=== PATIENT | male | born 1940 | race Caucasian/White ===

== ENCOUNTER → 2019-06-08 | Outpatient (CLI) | payer MEDICARE, OTHER | LOC: CARD 08:22 | PROVIDERS: ATTEND Internal Medicine Interventional Cardiology | DX: I25.10 Atherosclerotic heart disease of native coronary artery without angina pectoris (principal); E78.01 Familial hypercholesterolemia; I11.0 Hypertensive heart disease with heart failure | CPT/HCPCS: 93306 ==

== ENCOUNTER → 2019-06-15 | Outpatient (CLI) | payer MEDICARE, OTHER ==
[~2019-06-15] VITALS: Ht 178 cm; Wt 115.0 kg
[~2019-06-15] MED LIST: CATHETER FLUSH 10 ML SYR IV PRN; REGADENOSON 0.4 MG/5 ML SYR (LEXISCAN) IV ONE
[2019-06-15 08:52] VITALS: BP 128/66
--- NOTE | 2019-06-16 12:09 | Cardiology Stress Test Report ---
Stress Test Report Type of NM Stress Test: Test Type: LEXISCAN 0.4MG/5ML Date of Procedure/Referring: Date of Procedure: Jun 15, 2019 PCP Mariam Orr MD Admitting Physician Arsenio Sandoval MD Indications: Shortness of breath, CAD Baseline Heart Rate: 48 Baseline Blood Pressure: Blood Pressure Systolic: 128 Blood Pressure Diastolic: 66 Baseline EKG: Baseline EKG: sinus rhythm Summary & Conclusion: Summary: The patient was brought to the stress lab after informed consent was taken. Stress test was performed according to the Lexiscan protocol. 0.4 mg of IV Lexiscan was given. Low-grade exercise was performed. Baseline EKG showed sinus rhythm at 48 BPM. Blood pressure 153/77 mmHg. Maximum heart rate 71 BPM and blood pressure 139/66 mmHg. Patient did not have any chest pain, arrhythmias or ST segment changes during the stress test. 10.27 mCi of Myoview were given for rest imaging and 29 mCi of Myoview given for stress imaging. Transient ischemic dilatation score 0.99, EF 48 percent. Normal wall motion. Fixed apical defect. Small sized moderate apical reversible defect. SSS 5, SRS 2, SDS 3. Conclusion: Pharmacological stress test was negative for ischemia. Normal LV function with no wall motion abnormalities. Possible old apical infarct. [place]-infarct ischemia. Coronary angiography is recommended. Mariam ORR MD Jun 16, 2019 12:09
== END ==
LOC: CARD 07:47 → EDUNIT# 08:30
PROVIDERS: ATTEND Internal Medicine Interventional Cardiology
DX: I25.10 Atherosclerotic heart disease of native coronary artery without angina pectoris (principal); E78.01 Familial hypercholesterolemia; I10 Essential (primary) hypertension
CPT/HCPCS: 78452; 93017

== ENCOUNTER 2019-06-22 10:48 | Day surgery (SDC) | payer MEDICARE, OTHER ==
[~2019-06-22] VITALS: Ht 178 cm; Wt 113.0 kg
[~2019-06-22 10:48] MED LIST changes: -CATHETER FLUSH 10 ML SYR IV PRN; +HEParin (CATH LAB) 2,000 ML IV ONE; +LIDOCAINE 1% INJ 20 ML 20 ML VIAL ONE; +NS IV 1000 ML 1,000 ML ONE; -REGADENOSON 0.4 MG/5 ML SYR (LEXISCAN) IV ONE
[2019-06-22] MEDS: NS IV 1000 ML 1,000 ML IV SCH ×2 (10:57→14:41)
[2019-06-22 11:03] VITALS: BP 153/70
[2019-06-22 11:11] LABS: HEMOGLOBIN 14.6 G/DL (13.3-17.7); MEAN PLATELET VOLUME 10.4 FL (7.4-10.4); RED CELL DISTRIBUTION WIDTH 13.8 % (10.0-14.5); WHITE BLOOD COUNT 7.4 10^3/uL (4.3-11.0)
[2019-06-22 11:22] LABS: PROTHROMBIN TIME PATIENT 13.8 SEC (12.2-14.7)
[2019-06-22] MEDS ORDERED: ATEN25TA PO (11:24)
[2019-06-22] MEDS ORDERED: LEVO175T5 PO (11:24)
[2019-06-22] MEDS ORDERED: OXYB5TAB13 PO (11:24)
[2019-06-22] MEDS ORDERED: CYAN50008 PO (11:24)
[2019-06-22] MEDS ORDERED: ASCO-262 PO (11:24)
[2019-06-22] MEDS ORDERED: ATOR20TA49 PO (11:24)
[2019-06-22] MEDS ORDERED: DOCU-143 PO (11:24)
[2019-06-22] MEDS ORDERED: MULT-642 PO (11:24)
[2019-06-22] MEDS ORDERED: LISI10TA2 PO (11:24)
[2019-06-22] MEDS ORDERED: ASPI-999 PO (11:24)
[2019-06-22 11:28] LABS: ALBUMIN 4.3 GM/DL (3.2-4.5); BILIRUBIN,TOTAL 0.7 MG/DL (0.1-1.0); CALCIUM 9.6 MG/DL (8.5-10.1); CREATININE SERUM 1.18 MG/DL (0.60-1.30); POTASSIUM 4.3 MMOL/L (3.6-5.0); TOTAL PROTEIN 7.8 GM/DL (6.4-8.2)
[2019-06-22] MEDS ORDERED: fentaNYL INJECTION 100 MCG/2 ML AMP ONE (14:01)
[2019-06-22] MEDS ORDERED: HEParin 1000 UNIT/ML (10ML VIAL) FOR BOLUS ONE (14:01)
[2019-06-22] MEDS ORDERED: NITRO DRIP 25000 MCG/D5W 250 ML IV ONE (14:01)
[2019-06-22] MEDS ORDERED: MIDAZOLAM 5 MG/5 ML (VERSED) VIAL ONE (14:01)
[2019-06-22] MEDS ORDERED: VERAPAMIL 5 MG/2 ML (CALAN) VIAL IV ONE (14:01)
--- NOTE | 2019-06-22 14:19 | Cardiac Procedure Note-CS/ASA ---
Pre-Procedure Note Pre-Op Procedure Note H&P Reviewed The H&P was reviewed, patient examined and no changes noted. Date H&P Reviewed: Jun 22, 2019 Time H&P Reviewed: 12:00 Conscious Sedation Pre-Proced Time 12:00 ASA Score 3 For ASA 3 and 4: Consider anesthesia and medical clearance. Also, for patients with a history of failed moderate sedation consider anesthesia. Airway Lungs Heart ASA score ASA 1: a normal healthy patient ASA 2: a patient with a mild systemic disease (mid diabetes, controlled hypertension, obesity ASA 3: a patient with a severe systemic disease that limits activity (angina, COPD, prior Myocardial infarction) ASA 4: a patient with an incapacitating disease that is a constant threat to life (CHF, renal failure) ASA 5: a moribund patient not expected to survive 24 hrs. (ruptured aneurysm) ASA 6: a declared brain- patient whose organs are being harvested. For emergent operations, add the letter E after the classification Mallampati Classification Grade 1 Sedation Plan Analgesia, Amnesia, Plan communicated to team members, Discussed options with patient/fam, Discussed risks with patient/fam The patient is an appropriate candidate to undergo the planned procedure, sedation, and anesthesia. The patient immediately re-assessed prior to indication. Mariam ORR MD Jun 22, 2019 14:19
[2019-06-22] MEDS ORDERED: NS IV 1000 ML 1,000 ML ONE (14:34)
[2019-06-22] MEDS ORDERED: ADENOSINE 3 MG/1 ML (ADENOSCAN) 30ML VIAL IV ONE ×2 (14:43→14:59)
[2019-06-22] MEDS ORDERED: TICAGRELOR 90 MG TABLET (BRILINTA) PO ONE (15:16)
[2019-06-22] MEDS ORDERED: NS IV 1000 ML 1,000 ML IV SCH (15:48)
--- NOTE | 2019-06-22 15:48 | Coronary Angiography & PCI ---
Coronary Angiography & PCI DATE OF PROCEDURE: 06/22/19 INDICATION: Shortness of breath, abnormal nuclear stress test, previous history of CAD/PCI. PREOPERATIVE DIAGNOSIS: Shortness of breath, abnormal nuclear stress test, previous history of CAD/PCI. POSTOPERATIVE DIAGNOSIS: Moderate to severe CAD. HISTORY: This is a 79-year-old gentleman with previous history of CAD/PCI. He presented with shortness of breath. Nuclear stress test showed possible old apical infarct with kwesi-infarct ischemia. Therefore, the patient was scheduled for coronary angiography. PROCEDURES PERFORMED: 1.Coronary angiography. 2.Left heart catheterization. 3.attempted PCI to the first diagonal artery. 4. FFR to first OM artery. 5. FFR to proximal LAD. COMPLICATIONS: None. SPECIMENS: None. ESTIMATED BLOOD LOSS: 10 mL ANESTHESIA: Conscious sedation ANTICOAGULATION: IV heparin CONTRAST: 180 mL. FLUOROSCOPY: 20.5 minutes. FLOUROSCOPY DOSE: 1939 MGY. PROCEDURE DETAILS: The patient is a 79 male and was brought to the labor relations analyst after informed consent was taken. All the risks and complications were explained in detail; this included the risk of bleeding, vascular damage, stroke, [place] and even . The patient was draped and prepped in the usual sterile fashion. Access was gained in the right radial artery with a 6 Kinyarwanda sheath. Coronary angiography and left heart catheterization was performed with the [place] catheter. FINDINGS: 1.Left main: Patent. 2.LAD: Moderate proximal disease. Moderate bridging noted in the mid LAD. First diagonal artery is tortuous and has a mid severe stenosis. Stenosis severity 80 percent. 3.Left circumflex artery: Patent left circumflex artery. Moderate in-stent restenosis of a stent in OM 1. 4.RCA: Aneurysmal RCA with no focal stenosis. Dominant vessel. 5.Left heart catheterization: LV pressure 82/2 mmHg. LVEDP 9 mmHg. Aortic pressure 73/46 mmHg. Normal LV function with no wall motion abnormalities. No gradient across the aortic valve. RECOMMENDATIONS: 1. FFR to the in-stent restenosis of OM1. 2. FFR to the proximal LAD. 3. PCI to the first diagonal artery is recommended. INTERVENTION DETAILS: JL 4.0 guide catheter, FFR guidewire, IV heparin for anticoagulation. ACT was over 200 seconds. The lesion in the OM 1 was crossed with a FFR wire. The tip was placed in the distal vessel. Adenosine was started at 140 g per KG per minute for 2 minutes. Lowest FFR was 0.90 which is acceptable therefore PCI was deferred. The wire was taken out and post-angiogram did not show any vascular complication. The wire was then placed in the mid LAD. The lesion in the proximal LAD was crossed. The tip of the wire was placed just before the bridging segment in the mid/distal LAD. Adenosine was started at 140 g per KG per minute. Lowest FFR was 0.87 which was acceptable therefore PCI was deferred. We therefore decided to proceed with PCI to the diagonal artery. There was significant tortuosity before the lesion. We were unable to cross with the FFR wire. Therefore we switched to a whisper extra-support guidewire and we were able to cross the lesion. We then took a 2.25 x 15 drug-eluting st ent but were not able to cross into the diagonal artery. We had the FFR wire as a gonsalo wire but were still not able to cross the lesion. The stent was taken out and then we took an emerge 2.5 x 12 mm balloon and were still unable to cross the lesion. We then took the balloon out and went in with an emerge 1.5 x 12 mm balloon, we were still not able to get to the lesion due to significant tortuosity in the proximal LAD and proximal part of the diagonal artery. At this point in time we had already used 20 minutes of fluoroscopy time. We decided to stop. The wires were taken out. Post-angiogram did not show any vascular complication and EDWARD-3 flow. The right radial artery was closed with a vascular band. Patient was given Brilinta 180 mg by mouth before the attempted PCI. CONCLUSIONS: 1. Moderate in-stent restenosis of a first OM stent. Negative FFR. 2. Moderate proximal LAD stenosis, negative FFR. 3. Severe proximal/mid first diagonal artery stenosis. Attempted PCI, however we were not able to cross with stent and balloon. Procedure was stopped. 4. Continue aggressive secondary prevention measures. Jeffry Bowie MD, FACP, FACC, [facility] Interventional Cardiology Mariam BOWIE MD Jun 22, 2019 15:48
--- NOTE | 2019-06-22 15:51 | Discharge Inst-Post CATH ---
Discharge Inst-CATH/EP Problems Reviewed?: Yes Final Diagnosis Moderate to severe CAD Post Cardiac Cath/EP D/C Inst Follow Up/Plan Dr. Bowie in 4-6 weeks. <b>CARDIAC CATH/EP PROCEDURE DISCHARGE INSTRUCTIONS</b> ACTIVITY * Go Home directly and rest. * Limit activity of the leg (or wrist if it was used) for 7 days including aerobics, swimming, jogging, bicycling, etc. * Restrict stair-climbing for 7 days if possible, if not, climb up with your non-cath leg, then bring together on the same step. * Avoid lifting, pushing, pulling or excessive movement of the affected extremity for 7 days. * Customary sexual activity may be resumed after 2 days-use caution not to use a position that strains or causes pain to the affected extremity. * No driving for 24 hours. * NO SMOKING. * Avoid straining for bowel movements for 7 days. * Gentle walking on level ground is allowed. * Returning to work will depend on the type of procedure and the results. Your doctor will discuss this with you. CALL YOUR DOCTOR FOR ANY OF THE FOLLOWING: *If bleeding from the puncture site occurs- Apply gentle pressure to site with clean cloth and call your doctor or EMS. * If a knot or lump forms under the skin, increases in size, or causes pain. * If bruising appears to be worsening or moving further down your leg instead of disappearing. * Temperature above 101 F. CARE OF YOUR GROIN INCISION; * Bruising or purple discoloration of the skin near the puncture site is common. * You may shower only, no bathtub bathing for 5 days. Be careful to avoid slipping as your leg may feel stiff. * If a closure device was used on your femoral artery, please see the attached guide regarding care of the device and your leg. * Leave dressing on FOR 24 hours. CARE OF YOUR WRIST INCISION; * Bruising or purple discoloration of the skin near the puncture site is common. * You may shower. * DO NOT submerge wrist. * Leave dressing on FOR 24 hours. Mariam BOWIE MD Jun 22, 2019 15:51
[2019-06-22] MEDS ORDERED: PATIENT MAY USE OWN MEDS, ALL PO SCH (16:00)
[2019-06-22 16:10] VITALS: BP 152/84
--- NOTE | 2019-06-22 16:19 | Cardiology Discharge Summary ---
Diagnosis/Chief Complaint Date of Admission 06/22/2019 Date of Discharge 06/22/2019 Admission Diagnosis Shortness of breath, history of CAD/PCI, abnormal nuclear stress test. Final/Discharge Diagnosis Moderate to severe one-vessel CAD. Chief Complaint/HPI Chief Complaint/HPI This is a 79-year-old gentleman with shortness of breath. Previous history of CAD and PCI to the OM1 with a drug-eluting stent. He presented to the office with complains of shortness of breath. Nuclear stress test showed apical infar ct with possible kwesi-infarct ischemia. Coronary angiography was recommended. Discharge Summary Procedures Coronary angiography showed moderate in-stent restenosis of the stent in OM 1 with negative FFR. Moderate proximal LAD stenosis with negative FFR. Therefore PCI was deferred. The first diagonal artery had a proximal/mid severe stenosis. Significant tortuosity in the proximal segment of the first diagonal artery. We were able to cross with the whisper wire however we were not able to cross with either a drug-eluting stent or a 2.5 or 1.5 balloon. Therefore the procedure was stopped since we had already used 20 minutes of fluoroscopy time. The wires were taken out and post-angiogram did not reveal any vascular com plication and EDWARD-3 flow. Discharge Physical Examination Unremarkable. Hospital Course Was the Problem List Reviewed?: Yes Unremarkable. Pending Labs Laboratory Tests 06/22/19 11:00: White Blood Count 7.4, Red Blood Count 4.40, Hemoglobin 14.6, Hematocrit 44, Mean Corpuscular Volume 100, Mean Corpuscular Hemoglobin 33, Mean Corpuscular Hemoglobin Concent 33, Red Cell Distribution Width 13.8, Platelet Count 166, Mean Platelet Volume 10.4, Prothrombin Time 13.8, INR Comment 1.0, Activated Partial Thromboplast Time 30, Sodium Level 139, Potassium Level 4.3, Chloride Level 102, Carbon Dioxide Level 30, Anion Gap 7, Blood Urea Nitrogen 25, Creatinine 1.18, Estimat Glomerular Filtration Rate 60, BUN/Creatinine Ratio 21, Glucose Level 102, Calcium Level 9.6, Corrected Calcium 9.4, Total Bilirubin 0.7, Aspartate Amino Transf (AST/SGOT) 20, Alanine Aminotransferase (ALT/SGPT) 20, Alkaline Phosphatase 67, Total Protein 7.8, Albumin 4.3 Discussion & Recommendations Discussion Discussed with the patient and family. Patient will continue outpatient medical therapy. Follow-up in 4-6 weeks. Follow up appt.: 4-6 weeks. Dicharge Diet: Cardiac Diet Activity as Tolerated: Yes Home Medications Reviewed patient Home Medication Reconciliation performed by pharmacy medication reconciliations collection technician and/or nursing. Patients Allergies have been reviewed. Discharge Home Medications: Reviewed and agree with Discharge Medication list on patient's Discharge Instruction sheet Condition at discharge Stable. Instructions to patient/family Dr. Bowie in 4-6 weeks. Mariam BOWIE MD Jun 22, 2019 16:19
[2019-06-22 16:25] VITALS: BP 139/86
[2019-06-22 16:40] VITALS: BP 139/68
[2019-06-22 16:55] VITALS: BP 153/75
[2019-06-22 18:30] VITALS: BP 148/72
--- NOTE | 2019-06-22 18:30 | NUR ---
PT DISCHARGED HOME WITH SPOUSE VIA PRIVATE CAR. FOLLOW UP FAX SENT TO DR ORR OFFICE FOR FOLLOW UP APPT. PT INSTRUCTED TO CALL OFFICE DURING NORMAL HOURS NEXT WEEK IF HE DOES NOT HEAR FROM THE OFFICE. DISCHARGE PAPERS DISCUSSED WITH PT AND SPOUSE. BOTH STATE UNDERSTANDING.
== END 2019-06-22 18:30 | disposition home or self-care (01) ==
LOC: CATH 10:48 → CSD 16:41 → CATH 18:30
PROVIDERS: ATTEND Internal Medicine Interventional Cardiology
DX: T82.855A Stenosis of coronary artery stent, initial encounter (principal); I25.10 Atherosclerotic heart disease of native coronary artery without angina pectoris; Z11.2 Encounter for screening for other bacterial diseases; Z95.5 Presence of coronary angioplasty implant and graft; I10 Essential (primary) hypertension; E78.01 Familial hypercholesterolemia; I25.2 Old myocardial infarction; I49.3 Ventricular premature depolarization; Z79.899 Other long term (current) drug therapy; Z87.891 Personal history of nicotine dependence; Z82.49 Family history of ischemic heart disease and other diseases of the circulatory system
CPT/HCPCS: 36415; 80053; 85027; 85610; 85730; 87081; 93458

== ENCOUNTER 2019-08-19 09:47 | Emergency (ER) | payer MEDICARE, OTHER ==
[~2019-08-19] VITALS: Ht 117.8 cm; Wt 108.0 kg
[~2019-08-19 09:47] MED LIST changes: +ASCO-262 PO; +ASPI-999 PO; +ATEN25TA PO; +ATOR20TA49 PO; +CYAN50008 PO; +DOCU-143 PO; -HEParin (CATH LAB) 2,000 ML IV ONE; +LEVO175T5 PO; -LIDOCAINE 1% INJ 20 ML 20 ML VIAL ONE; +LISI10TA2 PO; +MULT-642 PO; -NS IV 1000 ML 1,000 ML ONE; +OXYB5TAB13 PO
--- OUTSIDE RECORDS SUMMARY | 2019-08-19 09:52 | XMS REPORT | Continuity of Care Document ---
Author Organization Unknown Address Unknown Phone Unavailable Allergies Active Description Code Type Severity Reaction Onset Reported/Identified Relationship to Patient Clinical Status Yes No Known Drug Allergies [id number] Drug Allergy Unknown N/A 06/15/2019 Medications There is no data. 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 06/20/2019 Mariam ORR MD Ot I25.10 ATHSCL HEART DISEASE OF [place] CORONARY 06/20/2019 Mariam ORR MD Ot E78.01 FAMILIAL HYPERCHOLESTEROLEMIA 06/20/2019 Mariam ORR MD Ot 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 06/20/2019 Mariam ORR MD Ot I25.10 ATHSCL HEART DISEASE OF [place] CORONARY 06/20/2019 Mariam ORR MD Ot E78.01 FAMILIAL HYPERCHOLESTEROLEMIA 06/20/2019 Mariam ORR MD Ot I10 ESSENTIAL (PRIMARY) HYPERTENSION 06/20/2019 Mariam ORR MD Ot I25.10 ATHSCL HEART DISEASE OF [place] CORONARY 06/22/2019 Mariam ORR MD Ot E78.01 FAMILIAL HYPERCHOLESTEROLEMIA 06/22/2019 Mariam ORR MD Ot 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 06/22/2019 Mariam ORR MD Ot I25.10 ATHSCL HEART DISEASE OF [place] CORONARY 06/22/2019 Mariam ORR MD Ot E78.01 FAMILIAL HYPERCHOLESTEROLEMIA 06/22/2019 Mariam ORR MD Ot I10 ESSENTIAL (PRIMARY) HYPERTENSION 06/22/2019 Mariam ORR MD Ot I25.10 ATHSCL HEART DISEASE OF [place] CORONARY 06/22/2019 Mariam ORR MD Ot E78.01 FAMILIAL HYPERCHOLESTEROLEMIA 06/22/2019 Mariam ORR MD Ot I10 ESSENTIAL (PRIMARY) HYPERTENSION 06/22/2019 Mariam ORR MD Ot I25.10 ATHSCL HEART DISEASE OF [place] CORONARY 06/22/2019 Mariam ORR MD Ot 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 06/22/2019 Mariam ORR MD Ot I49 .3 VENTRICULAR PREMATURE DEPOLARIZATION 06/22/2019 Mariam ORR MD Ot T82.855A STENOSIS OF CORONARY ARTERY STENT, INITI 06/22/2019 Mariam ORR MD Ot Z11 .2 ENCOUNTER FOR SCREENING FOR OTHER BACTER 06/22/2019 Mariam ORR MD Ot Z79.899 OTHER RADIO ASSEMBLER (CURRENT) DRUG THERAPY 06/22/2019 Mariam ORR MD Ot Z82.49 FAMILY HX OF ISCHEM HEART DIS AND OTH DI 06/22/2019 Mariam ORR MD Ot Z87.891 PERSONAL HISTORY OF NICOTINE DEPENDENCE 06/22/2019 Mariam ORR MD Ot Z95 .5 PRESENCE OF CORONARY ANGIOPLASTY IMPLANT 06/23/2019 Mariam ORR MD Ot E78.01 FAMILIAL HYPERCHOLESTEROLEMIA 06/23/2019 Mariam ORR MD Ot 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 06/23/2019 Mariam ORR MD Ot I25.10 ATHSCL HEART DISEASE OF [place] CORONARY 06/23/2019 Mariam ORR MD Ot E78.01 FAMILIAL HYPERCHOLESTEROLEMIA 06/23/2019 Mariam ORR MD Ot I10 ESSENTIAL (PRIMARY) HYPERTENSION 06/23/2019 Mariam ORR MD Ot I25.10 ATHSCL HEART DISEASE OF [place] CORONARY 06/23/2019 Mariam ORR MD Ot E78.01 FAMILIAL HYPERCHOLESTEROLEMIA 06/23/2019 KIRBY MARQUEZ, Mariam RITTER Ot I10 ESSENTIAL (PRIMARY) HYPERTENSION 06/23/2019 Mariam ORR MD Ot I25.10 ATHSCL HEART DISEASE OF [place] CORONARY 06/23/2019 Mariam ORR MD Ot 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 06/23/2019 Mariam ORR MD Ot I49 .3 VENTRICULAR PREMATURE DEPOLARIZATION 06/23/2019 Mariam ORR MD Ot T82.855A STENOSIS OF CORONARY ARTERY STENT, INITI 06/23/2019 Mariam ORR MD Ot Z11 .2 ENCOUNTER FOR SCREENING FOR OTHER BACTER 06/23/2019 Mariam ORR MD Ot Z79.899 OTHER RADIO ASSEMBLER (CURRENT) DRUG THERAPY 06/23/2019 Mariam ORR MD Ot Z82.49 FAMILY HX OF ISCHEM HEART DIS AND OTH DI 06/23/2019 Mariam ORR MD Ot Z87.891 PERSONAL HISTORY OF NICOTINE DEPENDENCE 06/23/2019 Mariam ORR MD Ot Z95 .5 PRESENCE OF CORONARY ANGIOPLASTY IMPLANT 07/07/2019 Mariam ORR MD Ot E78.01 FAMILIAL HYPERCHOLESTEROLEMIA 07/07/2019 Mariam ORR MD Ot I10 ESSENTIAL (PRIMARY) HYPERTENSION 07/07/2019 Mariam ORR MD Ot I25.10 ATHSCL HEART DISEASE OF [place] CORONARY 07/07/2019 Mariam ORR MD Ot E78.01 FAMILIAL HYPERCHOLESTEROLEMIA 07/07/2019 Mariam ORR MD Ot 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 Results Test Result Range Automated blood complete blood count (he mogram) panel - 06/22/19 11:00 Blood leukocytes automated count (number/volume) 7.4 10*3/uL 4.3-11.0 Blood erythrocytes automated count (number/volume) 4.40 10*6/uL 4.35-5.85 Venous blood hemoglobin measurement (mass/volume) 14.6 g/dL 13.3-17.7 Blood hematocrit (volume fraction) 44 % 40-54 Automated erythrocyte mean corpuscular volume 100 [foz_us] 80-99 Automated erythrocyte mean corpuscular h emoglobin (mass per erythrocyte) 33 pg 25-34 Automated erythrocyte mean corpuscular h emoglobin concentration measurement (mass/volume) 33 g/dL 32-36 Automated erythrocyte distribution width ratio 13. 8 % 10.0- 14.5 Automated blood platelet count (count/volume) 166 10*3/uL 130-400 Automated blood platelet mean volume measurement 10.4 [foz_us] 7.4-10.4 PT panel in platelet poor plasma by coag ulation assay - 06/22/19 11:00 Prothrombin time (PT) in platelet poor plasma by coagu lation assay 13.8 s 12.2-14.7 INR in platelet poor plasma or blood by coagulation as say 1.0 0.8-1.4 Activated partial thromboplastin time (a PTT) in platelet poor plasma bycoagulation assay - 06/22/19 11:00 Activated partial thromboplastin time (a PTT) in platelet poor plasma bycoagulation assay 30 s 24-35 Comprehensive metabolic panel - 06/22/19 11:00 Serum or plasma sodium measurement (moles/volume) 139 mmol/L 135-145 Serum or plasma potassium measurement (moles/volume) 4.3 mmol/L 3.6-5.0 Serum or plasma chloride measurement (moles/volume) 102 mmol/L 98-107 Carbon dioxide 30 mmol/L 21-32 Serum or plasma anion gap determination (moles/volume) 7 mmol/L 5-14 Serum or plasma urea nitrogen measurement (mass/volume ) 25 mg/dL 7-18 Serum or plasma creatinine measurement (mass/volume) 1.18 mg/dL 0.60-1.30 Serum or plasma urea nitrogen/creatinine mass ratio 21 NRG Serum or plasma creatinine measurement w ith calculation of estimated glomerular filtration rate 60 NRG Serum or plasma glucose measurement (mass/volume) 102 mg/dL 70-105 Serum or plasma calcium measurement (mass/volume) 9.6 mg/dL 8.5-10.1 Serum or plasma total bilirubin measurement (mass/volu me) 0.7 mg/dL 0.1-1.0 Serum or plasma alkaline phosphatase milad surement (enzymatic activity/volume) 67 U/L 40-136 Serum or plasma aspartate aminotransfera se measurement (enzymatic activity/volume) 20 U/L 5-34 Serum or plasma alanine aminotransferase measurement (enzymatic activity/volume) 20 U/L 0-55 Serum or plasma protein measurement (mass/volume) 7.8 g/dL 6.4-8.2 Serum or plasma albumin measurement (mass/volume) 4.3 g/dL 3.2-4.5 CALCIUM CORRECTED 9.4 mg/dL 8.5-10.1 Methicillin resistant Staphylococcus aur eus (MRSA) screening culture - 06/22/19 11:00 Methicillin resistant Staphylococcus aureus (MRSA) scr eening culture NEG NRG Encounters ACCT No. Visit Date/Time Discharge Status Pt. Type Provider Facility Loc./Unit Complaint [id number] 06/22/2019 10:48:00 18:30:00 DIS Outpatient Mariam ORR MD [facility] CATH ABNORMAL STRESS TEST [id number] 06/15/2019 07:47:00 23:59:59 CLS Outpatient Mariam ORR MD [facility] CARD CAD [id number] 06/08/2019 08:22:00 23:59:59 CLS Outpatient Mariam ORR MD [facility] CARD CAD
[2019-08-19] MEDS ORDERED: TETANUS,DIPTH,PERTUSS P/F (BOOSTRIX) 0.5 ML VIAL IM ONE (10:15)
--- NOTE | 2019-08-19 10:33 | Diagnostic Imaging Report ---
PROCEDURE: CT head and CT cervical spine without contrast. TECHNIQUE: Multiple contiguous axial images were obtained through the brain and cervical spine without the use of intravenous contrast. Sagittal and coronal reformations through the cervical spine were then performed. Auto Exposure Controls were utilized during the CT exam to meet ALARA standards for radiation dose reduction. INDICATION: Fall. Head injury. Neck pain. COMPARISON: None. FINDINGS: CT HEAD: No intracranial hemorrhage, mass effect, hydrocephalus or extra-axial fluid collections. No CT evidence of a territorial infarction. Moderate generalized cerebral and cerebellar parenchymal volume loss. Osseous structures are intact. Paranasal sinuses and mastoids are clear. CT cervical spine: Normal alignment. Vertebral body heights preserved. No fractures. Moderate degenerative endplate changes including large bridging anterior osteophytes. No evidence of high-grade spinal canal narrowing on soft tissue windows. Moderate atherosclerotic calcifications in the carotid bifurcations. Lung apices are clear. IMPRESSION: No acute intracranial or cervical spine CT findings. Dictated by: Dictated on workstation # [id number]
--- NOTE | 2019-08-19 10:37 | Diagnostic Imaging Report ---
Indication: Fall, pain. Findings: Hips are replaced bilaterally, the femoral head component directed into the acetabular components. No bony or hardware fracture identified. Impression: No acute-appearing pathological finding. Dictated by: Dictated on workstation # [id number]
--- NOTE | 2019-08-19 11:11 | NUR ---
c collar removed at this time.
[2019-08-19] MEDS ORDERED: LIDOCAINE/EPI 2% 1:100,00 (XYLOCAINE) 20 ML VIAL INJ ONE (11:30)
--- NOTE | 2019-08-19 11:57 | ED Head Injury ---
General Chief Complaint: Head/Cervical Problems Stated Complaint: FALL - HEAD LAC - NECK PAIN Nursing Triage Note: Pt reports missing last rung of ladder and fell backward hitting head and neck on cement gutter drain. Pt c/o head and neck pain. Pt denies LOC. Source: patient Exam Limitations: no limitations History of Present Illness Date Seen by Provider: Aug 19, 2019 Time Seen by Provider: 09:40 Initial Comments This 79-year-old gentleman presents to the emergency room with a laceration on his posterior scalp. He missed the last rung on a ladder and fell backwards striking his head. He denies loss of consciousness or signs or symptoms of concussion. He has a 7-8 cm laceration on the posterior scalp that is no longer bleeding. He does complain of neck pain. C-collar was applied. He has some minor pain around his tailbone. Allergies and Home Medications Allergies Coded Allergies: No Known Drug Allergies (Unverified , 06/15/19) Home Medications Ascorbate Calcium 500 Mg Tablet, 500 MG PO DAILY, (Reported) Aspirin 81 Mg Tab.chew, 81 MG PO DAILY, (Reported) Atenolol 25 Mg Tablet, 25 MG PO DAILY, (Reported) Atorvastatin Calcium 20 Mg Tablet, 20 MG PO DAILY, (Reported) Cyanocobalamin (Vitamin B-12) 5,000 Mcg Tab.rapdis, 5,000 MCG PO DAILY, (Reported) Docusate Sodium 100 Mg Capsule, 100 MG PO DAILY, (Reported) Levothyroxine Sodium 175 Mcg Tablet, 175 MCG PO DAILY, (Reported) Lisinopril 10 Mg Tablet, 10 MG PO DAILY, (Reported) Multivitamin Unknown Strength Tablet, 1 TAB PO DAILY, (Reported) Oxybutynin Chloride 5 Mg Tablet, 5 MG PO BID, (Reported) Patient Home Medication List Home Medication List Reviewed: Yes Review of Systems Review of Systems Constitutional: no symptoms reported Eyes: No Symptoms Reported Ears, Nose, Mouth, Throat: no symptoms reported Respiratory: no symptoms reported Cardiovascular: no symptoms reported Genitourinary: no symptoms reported Musculoskeletal: see HPI Skin: see HPI Psychiatric/Neurological: No Symptoms Reported Endocrine: No Symptoms Reported Hematologic/Lymphatic: No Symptoms Reported Past Sfaxjpk-Osscft-Vjxpvh Hx Patient Social History Alcohol Use: Rarely Uses Recreational Drug Use: No 2nd Hand Smoke Exposure: No Recent Foreign Travel: No Contact w/Someone Who Travel: No Recent Infectious Disease Expo: No Immunizations Up To Date Tetanus Booster (TDap): Less than 5yrs Date of Pneumonia Vaccine: Feb 19, 2017 Date of Influenza Vaccine: Mar 15, 2019 Past Medical History Surgeries: Yes (2 KNEES, 2 HIPS, SHOULDER) Gallbladder Respiratory: No Currently Using CPAP: No Currently Using BIPAP: No Cardiac: Yes Coronary Artery Disease, Heart Attack, Hypertension Neurological: No Genitourinary: No Gastrointestinal: Yes (LAZY ESOPHAGUS) Hiatal Hernia Musculoskeletal: Yes (L hip issues) Endocrine: Yes Cancer: No Physical Exam Vital Signs Vital Signs - First Documented 08/19/19 09:55 Temp 36.5 Pulse 62 Resp 12 B/P (MAP) 128/78 (95) Pulse Ox 98 O2 Delivery Room Air Capillary Refill : Less Than 3 Seconds Height, Weight, BMI Height: '" Weight: lbs. oz. kg; 77.00 BMI Method: General Appearance: WD/WN, no apparent distress HEENT: PERRL/EOMI, pharynx normal, other (7-8 cm laceration on the posterior scalp) Neck: normal inspection, tender midline Cardiovascular: regular rate, rhythm, no edema, no murmur Respiratory: lungs clear, normal breath sounds, no respiratory distress, no accessory muscle use Gastrointestinal: non tender, soft Extremities: non-tender, normal inspection, no pedal edema, pelvis stable Psychiatric: alert, oriented x 3 Crainal Nerves: normal hearing, normal speech, PERRL Motor/Sensory: no motor deficit, no sensory deficit Skin: normal color, warm/dry [place] Coma Score Best Eye Response: (4) Open Spontaneously Best Verbal Response: (5) Oriented Best Motor Response: (6) Obeys Commands [place] Total: 15 Procedures/Interventions Wound Location: Scalp Wound Length (cm): 8 Wound Explored: clean Irrigated w/ Saline (ccs): 500 Betadine Prep?: Yes Anesthesia: Lidocaine w/ Epi Volume Anesthetic (ccs): 8 Staple Repair: Stapler Skin Precise Progress CT scan was negative for school or intracranial injuries. Skin was cleaned with alcohol and local anesthesia was provided with lidocaine with epinephrine. Skin was then scrubbed with chlorhexidine and sterile saline. Wound was then irrigated with normal saline. Hair was cleared from the laceration and skin was prepped with Betadine. 6 iveth were placed to approximate the wound. There is no significant bleeding. Progress/Results/Core Measures Results/Orders My Orders Orders - TED SOUSA MD Ct Head/Cervical Spine Wo (08/19/19 09:48) Pelvis (08/19/19 10:14) Dipht,Pertuss(Acell),Tet Adult (Boostrix (08/19/19 10:15) Lidocaine/Epi 2% 1:100,000 (Xylocaine/Ep (08/19/19 11:30) Medications Given in ED Current Medications Medications Dose Ordered Sig/Jinny Route Start Time Stop Time Status Last Admin Dose Admin Diphtheria/ Tetanus/Acell Pertussis 0.5 ml ONCE ONCE IM 08/19/19 10:15 08/19/19 10:16 DC 08/19/19 10:54 0.5 ML Lidocaine/ Epinephrine 20 ml ONCE ONCE INJ 08/19/19 11:30 08/19/19 11:31 DC 08/19/19 11:45 8 ML Vital Signs/I&O 08/19/19 08/19/19 09:55 12:10 Temp 36.5 36.5 Pulse 62 59 Resp 12 12 B/P (MAP) 128/78 (95) 154/75 (95) Pulse Ox 98 95 O2 Delivery Room Air Room Air Blood Pressure Mean: 95 Diagnostic Imaging Diagonstic Imaging: CT Plain Films/CT/US/NM/MRI: c-spine, head Comments CT head and C-spine viewed by me and report reviewed. See report below: NAME: [facility]ERT [facility] REC#: [id number] PT STATUS: DEP ER : 1940 PHYSICIAN: TED SOUSA MD ADMIT DATE: 08/19/19/ER Signed Date of Exam:08/19/19 CT HEAD/CERVICAL SPINE WO PROCEDURE: CT head and CT cervical spine without contrast. TECHNIQUE: Multiple contiguous axial images were obtained through the brain and cervical spine without the use of intravenous contrast. Sagittal and coronal reformations through the cervical spine were then performed. Auto Exposure Controls were utilized during the CT exam to meet ALARA standards for radiation dose reduction. INDICATION: Fall. Head injury. Neck pain. COMPARISON: None. FINDINGS: CT HEAD: No intracranial hemorrhage, mass effect, hydrocephalus or extra-axial fluid collections. No CT evidence of a territorial infarction. Moderate generalized cerebral and cerebellar parenchymal volume loss. Osseous structures are intact. Paranasal sinuses and mastoids are clear. CT cervical spine: Normal alignment. Vertebral body heights preserved. No fractures. Moderate degenerative endplate changes including large bridging anterior osteophytes. No evidence of high-grade spinal canal narrowing on soft tissue windows. Moderate atherosclerotic calcifications in the carotid bifurcations. Lung apices are clear. IMPRESSION: No acute intracranial or cervical spine CT findings. Dictated by: Dictated on workstation # [id number] Dict: 08/19/19 1027 Trans: 08/19/19 1556 CVB [id number] Interpreted by: YADIRA MOORE MD Electronically signed by: YADIRA MOORE MD 08/19/19 1556 Diagonstic Imaging: Xray Plain Films/CT/US/NM/MRI: pelvis Comments NAME: WONG COLBERT [facility] REC#: [id number] PT STATUS: REG ER : 1940 PHYSICIAN: TED SOUSA MD ADMIT DATE: 08/19/19/ER Signed Date of Exam:08/19/19 PELVIS Indication: Fall, pain. Findings: Hips are replaced bilaterally, the femoral head component directed into the acetabular components. No bony or hardware fracture identified. Impression: No acute-appearing pathological finding. Dictated by: Dictated on workstation # [id number] Dict: 08/19/19 1035 Trans: 08/19/19 1204 CVB [id number] Interpreted by: BOB FLORENTINO Electronically signed by: BOB FLORENTINO 08/19/19 1204 Departure Impression Primary Impression: Laceration of scalp Qualified Codes: S01.01XA - Laceration without foreign body of scalp, initial encounter Additional Impressions: Fall from ladder Qualified Codes: W11.XXXA - Fall on and from ladder, initial encounter Neck pain Disposition: 01 HOME, SELF-CARE Condition: Improved Departure-Patient Inst. Referrals: RANDOLPH DELAROSA MD (PCP/Family) Primary Care Physician Patient Instructions: Laceration Repair With Iveth (DC) Add. Discharge Instructions: Keep the wound clean and dry except for normal showering. You may start showering this evening. Soapy water may run over the wound but do not scrub directly over the iveth. Do not submerge until iveth are removed. Return in 7-10 days to have iveth removed. Monitor the wound for signs of infection such as increasing redness, increasing swelling, puslike drainage, or fever. Use Tylenol (acetaminophen) up to 1000 mg every 6 hours as needed for pain. Gentle icing in 20 minute intervals may also be helpful to reduce pain and swelling. Switch to gentle heat and 24-48 hours. Return to care if you have any other problems or concerns. All discharge instructions reviewed with patient and/or family. Voiced understanding. TED SOUSA MD Aug 19, 2019 11:56
[2019-08-19 12:10] VITALS: BP 154/75
== END 2019-08-19 12:11 | disposition home or self-care (01) ==
LOC: EDUNIT# 09:47 → ER 09:48
DX: S01.01XA Laceration without foreign body of scalp, initial encounter (principal); M54.2 Cervicalgia; I10 Essential (primary) hypertension; I25.10 Atherosclerotic heart disease of native coronary artery without angina pectoris; I25.2 Old myocardial infarction; R40.2142 Coma scale, eyes open, spontaneous, at arrival to emergency department; R40.2252 Coma scale, best verbal response, oriented, at arrival to emergency department; R40.2362 Coma scale, best motor response, obeys commands, at arrival to emergency department; Z79.82 Long term (current) use of aspirin; Z23 Encounter for immunization; W11.XXXA Fall on and from ladder, initial encounter
CPT/HCPCS: 12015; 70450; 72125; 72170; 90715

== ENCOUNTER 2019-08-29 06:04 | Emergency (ER) | payer MEDICARE, OTHER ==
[~2019-08-29] VITALS: Ht 180 cm; Wt 90.7 kg
--- OUTSIDE RECORDS SUMMARY | 2019-08-29 06:11 | XMS REPORT | Continuity of Care Document ---
Author Organization Unknown Address Unknown Phone Unavailable Allergies Active Description Code Type Severity Reaction Onset Reported/Identified Relationship to Patient Clinical Status Yes No Known Drug Allergies [id number] Drug Allergy Unknown N/A 06/15/2019 Medications There is no data. 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 06/20/2019 Mariam ORR MD Ot I25.10 ATHSCL HEART DISEASE OF [place] CORONARY 06/20/2019 Mariam ORR MD Ot E78.01 FAMILIAL HYPERCHOLESTEROLEMIA 06/20/2019 Mariam ORR MD Ot 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 06/20/2019 Mariam ORR MD Ot I25.10 ATHSCL HEART DISEASE OF [place] CORONARY 06/20/2019 Mariam ORR MD Ot E78.01 FAMILIAL HYPERCHOLESTEROLEMIA 06/20/2019 Mariam ORR MD Ot I10 ESSENTIAL (PRIMARY) HYPERTENSION 06/20/2019 Mariam ORR MD Ot I25.10 ATHSCL HEART DISEASE OF [place] CORONARY 06/22/2019 Mariam ORR MD Ot E78.01 FAMILIAL HYPERCHOLESTEROLEMIA 06/22/2019 Mariam ORR MD Ot 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 06/22/2019 Mariam ORR MD Ot I25.10 ATHSCL HEART DISEASE OF [place] CORONARY 06/22/2019 Mariam ORR MD Ot E78.01 FAMILIAL HYPERCHOLESTEROLEMIA 06/22/2019 Mariam ORR MD Ot I10 ESSENTIAL (PRIMARY) HYPERTENSION 06/22/2019 Mariam ORR MD Ot I25.10 ATHSCL HEART DISEASE OF [place] CORONARY 06/22/2019 Mariam ORR MD Ot E78.01 FAMILIAL HYPERCHOLESTEROLEMIA 06/22/2019 Mariam ORR MD Ot I10 ESSENTIAL (PRIMARY) HYPERTENSION 06/22/2019 Mariam ORR MD Ot I25.10 ATHSCL HEART DISEASE OF [place] CORONARY 06/22/2019 Mariam ORR MD Ot 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 06/22/2019 Mariam ORR MD Ot I49 .3 VENTRICULAR PREMATURE DEPOLARIZATION 06/22/2019 Mariam ORR MD Ot T82.855A STENOSIS OF CORONARY ARTERY STENT, INITI 06/22/2019 Mariam ORR MD Ot Z11 .2 ENCOUNTER FOR SCREENING FOR OTHER BACTER 06/22/2019 Mariam ORR MD Ot Z79.899 OTHER [facility]PC (CURRENT) DRUG THERAPY 06/22/2019 Mariam ORR MD [...] MD Ot I25.10 ATHSCL HEART DISEASE OF [place] CORONARY 06/23/2019 Mariam ORR MD Ot E78.01 FAMILIAL HYPERCHOLESTEROLEMIA 06/23/2019 Mariam ORR MD Ot I10 ESSENTIAL (PRIMARY) HYPERTENSION 06/23/2019 Mariam ORR MD Ot I25.10 ATHSCL HEART DISEASE OF [place] CORONARY 06/23/2019 Mariam ORR MD Ot E78.01 FAMILIAL HYPERCHOLESTEROLEMIA 06/23/2019 KIRBY MARQUEZ, Mariam RITTER Ot I10 ESSENTIAL (PRIMARY) HYPERTENSION 06/23/2019 Mariam ORR MD Ot I25.10 ATHSCL HEART DISEASE OF [place] CORONARY 06/23/2019 Mariam ORR MD Ot 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 06/23/2019 Mariam ORR MD Ot I49 .3 VENTRICULAR PREMATURE DEPOLARIZATION 06/23/2019 Mariam ORR MD Ot T82.855A STENOSIS OF CORONARY ARTERY STENT, INITI 06/23/2019 Mariam ORR MD Ot Z11 .2 ENCOUNTER FOR SCREENING FOR OTHER BACTER 06/23/2019 Mariam ORR MD Ot Z79.899 OTHER CLERK FUNERAL DETAIL (CURRENT) DRUG THERAPY 06/23/2019 Mariam ORR MD [...] MD Ot I25.10 ATHSCL HEART DISEASE OF [place] CORONARY 07/07/2019 Mariam ORR MD Ot E78.01 FAMILIAL HYPERCHOLESTEROLEMIA 07/07/2019 Mariam ORR MD Ot 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 07/07/2019 Mariam ORR MDWAN Ot I25.10 ATHSCL HEART DISEASE OF [place] CORONARY 08/21/2019 TED SOUSA MD, Ot I10 ESSENTIAL (PRIMARY) HYPERTENSION 08/21/2019 TED SOUSA MD, Ot I25.10 ATHSCL HEART DISEASE OF [place] CORONARY 08/21/2019 TED SOUSA MD, Ot I25.2 OLD MYOCARDIAL INFARCTION 08/21/2019 TED SOUSA MD, Ot M54.2 CERVICALGIA 08/21/2019 TED SOUSA MD, Ot R40.2142 COMA SCALE, EYES OPEN, SPONTANEOUS, EMR 08/21/2019 TED SOUSA MD, Ot R40.2252 COMA SCALE, BEST VERBAL RESPONSE, ORIENT 08/21/2019 TED SOUSA MD, Ot R40.2362 COMA SCALE, BEST MOTOR RESPONSE, OBEYS C 08/21/2019 TED SOUSA MD, Ot S01.01XA LACERATION WITHOUT FOREIGN BODY OF SCALP 08/21/2019 TED SOUSA MD, Ot W11.XXXA FALL ON AND FROM LADDER, INITIAL ENCOUNT 08/21/2019 TED SOUSA MD, Ot Z23 ENCOUNTER FOR IMMUNIZATION 08/21/2019 TED SOUSA MD, Ot Z79.82 CLERK FUNERAL DETAIL (CURRENT) USE OF ASPIRIN Procedures There is no data. Results Test Result Range Automated blood complete blood count (formerly [facility]) panel - 06/22/19 11:00 Blood leukocytes automated [...] Status Pt. Type Provider Facility Loc./Unit Complaint [id number] 08/19/2019 09:48:00 12:11:00 DIS Outpatient LARS MARQUEZ, TED Tierney [facility] ER FALL - HEAD LAC - NECK PAIN [id number] 06/22/2019 10:48:00 18:30:00 DIS Outpatient Mariam ORR MD [facility] CATH ABNORMAL STRESS TEST [id number] 06/15/2019 07:47:00 23:59:59 CLS Outpatient Mariam ORR MD [facility] CARD CAD [id number] 06/08/2019 08:22:00 23:59:59 CLS Outpatient Mariam ORR MD [facility] CARD CAD [id number] 08/29/2019 06:06:[address] Emergency POP MARQUEZ, SALO Busby [facility] ER REMOVAL OF REHAN
[2019-08-29 06:31] VITALS: BP 118/60
== END 2019-08-29 06:26 | disposition home or self-care (01) ==
LOC: EDUNIT# 06:04 → ER 06:06
DX: S01.81XD Laceration without foreign body of other part of head, subsequent encounter (principal); X58.XXXD Exposure to other specified factors, subsequent encounter

== ENCOUNTER 2020-01-05 13:00 | Outpatient (RCR) | payer MEDICARE, OTHER | END 2020-04-04 | disposition home or self-care (01) | LOC: CARD 13:00 | PROVIDERS: ATTEND Internal Medicine Interventional Cardiology | DX: I11.9 Hypertensive heart disease without heart failure (principal); E78.01 Familial hypercholesterolemia; I25.10 Atherosclerotic heart disease of native coronary artery without angina pectoris; I71.4 Abdominal aortic aneurysm, without rupture; R55 Syncope and collapse; Z20.828 Contact with and (suspected) exposure to other viral communicable diseases | CPT/HCPCS: 93306 ==

== ENCOUNTER → 2020-01-08 | Outpatient (CLI) | payer MEDICARE, OTHER | LOC: LABNPT 06:06 | PROVIDERS: ATTEND Pain Medicine Interventional Pain Medicine | DX: Z20.828 Contact with and (suspected) exposure to other viral communicable diseases (principal) | CPT/HCPCS: 87635 ==

== ENCOUNTER → 2020-01-11 | Outpatient (CLI) | payer MEDICARE, OTHER | LOC: RAD 14:00 | PROVIDERS: ATTEND Internal Medicine Interventional Cardiology | DX: Z01.810 Encounter for preprocedural cardiovascular examination (principal); Z20.828 Contact with and (suspected) exposure to other viral communicable diseases | CPT/HCPCS: 93925 ==

== ENCOUNTER → 2020-05-03 | Outpatient (CLI) | payer MEDICARE, OTHER ==
--- NOTE | 2020-05-03 09:54 | Diagnostic Imaging Report ---
PROCEDURE: US Aorta Doppler. TECHNIQUE: Multiple real time grayscale images were obtained over the abdominal aorta in various projections. INDICATION: Abdominal aortic aneurysm. Proximal abdominal aorta measures 2.9 cm AP by 2.8 cm transverse. Midabdominal aorta measures 5.6 cm AP by 4.8 cm transverse. Distal abdominal aorta measures 3.9 cm AP by 3.7 cm transverse. The right iliac measures 1.4 x 2.0 cm and the left iliac measures 1.4 x 1.9 cm. No perianeurysmal fluid collection is seen. IMPRESSION: Infrarenal abdominal aortic aneurysm, as described. Dictated by: Dictated on workstation # [id number]
== END ==
LOC: RAD 08:40
PROVIDERS: ATTEND Nurse Practitioner Acute Care
DX: I71.4 Abdominal aortic aneurysm, without rupture (principal)
CPT/HCPCS: 93978

== ENCOUNTER → 2020-05-15 | Outpatient (CLI) | payer MEDICARE, OTHER ==
[~2020-05-15] MED LIST changes: +CATHETER FLUSH 10 ML SYR IV PRN; +HOLD METFORMIN - RECEIVED CONTRAST 20 ML VIAL IV SCH; +IOHEXOL 350 MG/ML 100 ML (OMNIPAQUE 350) VIAL IV ONE; +NS 100 ML (IVPB) BAG IV ONE
[2020-05-15 10:11] LABS: CREATININE SERUM 1.38 MG/DL (0.60-1.30)
--- NOTE | 2020-05-15 11:02 | Diagnostic Imaging Report ---
PROCEDURE: CT angiography of the abdomen with and without contrast. TECHNIQUE: Multiple contiguous axial images were obtained through the abdomen and pelvis after administration of intravenous contrast. 3D MIP reconstructions were made. Auto Exposure Controls were utilized during the CT exam to meet ALARA standards for radiation dose reduction. INDICATION: Abdominal aortic aneurysm. FINDINGS: The lung bases are clear. No discrete liver mass is detected. Gallbladder appears to be surgically absent. No biliary ductal dilatation is seen. Pancreas does shows some fatty atrophy. Spleen is unremarkable. No adrenal mass is detected. Right kidney is unremarkable. Left kidney does contain a low-attenuation lesion in the upper pole measuring 2 cm. This likely represents a cyst. There is an infrarenal abdominal aortic aneurysm. This measures 4.7 cm AP diameter. This terminates above the bifurcation. No perianeurysmal fluid collection to suggest leakage or rupture is identified. Aorta does contain moderate amount of atherosclerotic plaque. Small and large bowel loops are normal caliber. There is no obstruction. There is no free fluid. No central retroperitoneal or mesenteric lymphadenopathy is identified. The bony structures appear nonacute. There is diffuse lumbar spondylosis and facet arthropathy. IMPRESSION: 1. Infrarenal abdominal aortic aneurysm. There is no evidence of leakage or rupture. 2. No other significant abnormality is detected. Dictated by: Dictated on workstation # [id number]
== END ==
LOC: RAD 09:37
PROVIDERS: ATTEND Nurse Practitioner
DX: I71.4 Abdominal aortic aneurysm, without rupture (principal)
CPT/HCPCS: 36415; 74175; 82565

== ENCOUNTER 2020-12-18 10:15 | Outpatient (RCR) | payer MEDICARE, OTHER ==
[~2020-12-18 10:15] MED LIST changes: -CATHETER FLUSH 10 ML SYR IV PRN; -CYAN50008 PO; +CYAN50009 PO; -HOLD METFORMIN - RECEIVED CONTRAST 20 ML VIAL IV SCH; -IOHEXOL 350 MG/ML 100 ML (OMNIPAQUE 350) VIAL IV ONE; -LISI10TA2 PO; +LISI10TA25 PO; -NS 100 ML (IVPB) BAG IV ONE
== END 2020-12-18 12:40 | disposition home or self-care (01) ==
PROVIDERS: ATTEND Orthopaedic Surgery
DX: M70.52 Other bursitis of knee, left knee (principal); M70.51 Other bursitis of knee, right knee; M54.5 Low back pain; I10 Essential (primary) hypertension; Z96.653 Presence of artificial knee joint, bilateral

== ENCOUNTER 2021-04-10 12:28 | Outpatient (RCR) | payer MEDICARE, OTHER | END 2021-04-25 | disposition home or self-care (01) | PROVIDERS: ATTEND Orthopaedic Surgery | DX: M54.50 Low back pain, unspecified (principal); I10 Essential (primary) hypertension; R53.1 Weakness ==

== ENCOUNTER → 2021-04-11 | Outpatient (CLI) | payer MEDICARE, OTHER | LOC: CARD 13:00 | PROVIDERS: ATTEND Internal Medicine Cardiovascular Disease | DX: I11.9 Hypertensive heart disease without heart failure (principal) | CPT/HCPCS: 93306 ==

== ENCOUNTER → 2021-04-30 | Outpatient (CLI) | payer MEDICARE, OTHER ==
[~2021-04-30] VITALS: Ht 177 cm; Wt 103.0 kg
[~2021-04-30] MED LIST changes: +REGADENOSON 0.4 MG/5 ML SYR (LEXISCAN) IV ONE
[2021-04-30] MEDS: CATHETER FLUSH 10 ML SYR IV PRN ×2 (11:43→13:22)
[2021-04-30 13:21] VITALS: BP 134/55
--- NOTE | 2021-04-30 14:45 | Cardiology Stress Test Report ---
Stress Test Report Date of Procedure/Referring: Date of Procedure: Apr 30, 2021 PCP Whitley White MD Admitting Physician Center/[facility] Indications: CP Baseline Heart Rate: 50 Baseline Blood Pressure: Blood Pressure Systolic: 134 Blood Pressure Diastolic: 55 Baseline Vitals Vital Signs Date Time Temp Pulse Resp B/P (MAP) Pulse Ox O2 Delivery O2 Flow Rate FiO2 04/30/21 13:21 60 16 134/55 (81) 97 Room Air Baseline EKG: Baseline EKG: NSR Summary After explaining the procedure to the patient, he signed a consent and then brought to the stress nuclear laboratory. Patient received 0.4 mg Lexiscan for stress test, ECG, heart rate and blood pressure were monitored continuously. Resting and stress dose of radio tracer were injected, imaging was acquired and reviewed in short axis, horizontal long axis and vertical long axis views. TID: 1.07 SSS: 13 SDS: 11 EF: 29 1. Patient tolerated Lexiscan well 2. Occasional ventricular premature contractions were noted during test 3. Reversible ischemia involving the mid to apical anterior wall true apex, anterolateral wall 4. Prominent left ventricle with diffuse left ventricular hypokinesia, EF 29 percent WHITLEY WHITE MD Apr 30, 2021 14:44
== END ==
LOC: CARD 12:45
PROVIDERS: ATTEND Internal Medicine Cardiovascular Disease
DX: R07.9 Chest pain, unspecified (principal); I10 Essential (primary) hypertension
CPT/HCPCS: 78452; 93017; A9502

== ENCOUNTER → 2021-05-26 | Outpatient (RCR) | payer MEDICARE, OTHER ==
[~2021-05-26] MED LIST changes: -REGADENOSON 0.4 MG/5 ML SYR (LEXISCAN) IV ONE
== END | disposition home or self-care (01) ==
PROVIDERS: ATTEND Orthopaedic Surgery
DX: M54.50 Low back pain, unspecified (principal); I10 Essential (primary) hypertension; R53.1 Weakness

== ENCOUNTER 2021-06-18 14:58 | Outpatient (RCR) | payer MEDICARE, OTHER | END 2021-06-23 | disposition home or self-care (01) | PROVIDERS: ATTEND Orthopaedic Surgery | DX: M54.16 Radiculopathy, lumbar region (principal); I10 Essential (primary) hypertension ==

== ENCOUNTER → 2021-08-01 | Outpatient (CLI) | payer MEDICARE, OTHER | LOC: CARD 13:30 | PROVIDERS: ATTEND Internal Medicine Cardiovascular Disease | DX: I11.9 Hypertensive heart disease without heart failure (principal); I34.0 Nonrheumatic mitral (valve) insufficiency | CPT/HCPCS: 93306 ==

== ENCOUNTER → 2021-09-17 | Outpatient (CLI) | payer MEDICARE, OTHER ==
[2021-09-17 12:42] LABS: HEMATOCRIT 39 % (40-54); HEMOGLOBIN 12.7 g/dL (13.3-17.7); MEAN CORPUSCULAR HEMOGLOBIN 32 pg (25-34); MEAN CORPUSCULAR HGB CONC 33 g/dL (32-36); MEAN CORPUSCULAR VOLUME 99 fL (80-99); MEAN PLATELET VOLUME 10.3 fL (9.0-12.2); PLATELET COUNT 163 10^3/uL (130-400); WHITE BLOOD COUNT 5.9 10^3/uL (4.3-11.0)
[2021-09-17 13:02] LABS: ALBUMIN 3.9 GM/DL (3.2-4.5); POTASSIUM 4.5 MMOL/L (3.6-5.0)
[2021-09-17 13:03] LABS: CALCIUM 9.2 MG/DL (8.5-10.1)
[2021-09-17 13:05] LABS: TOTAL PROTEIN 7.3 GM/DL (6.4-8.2)
[2021-09-17 13:06] LABS: BILIRUBIN,TOTAL 0.6 MG/DL (0.1-1.0)
[2021-09-17 13:08] LABS: CREATININE SERUM 0.94 MG/DL (0.60-1.30)
== END ==
LOC: LAB 12:10
PROVIDERS: ATTEND Internal Medicine Cardiovascular Disease
DX: I10 Essential (primary) hypertension (principal); I25.10 Atherosclerotic heart disease of native coronary artery without angina pectoris
CPT/HCPCS: 36415; 80053; 83036; 84443; 85027

== ENCOUNTER 2021-10-02 11:08 | Outpatient (RCR) | payer MEDICARE, OTHER ==
[2021-10-04] MEDS ORDERED: PRAS10TA10 PO (12:18)
[2021-10-04] MEDS ORDERED: LEVO200T62 PO (12:18)
[2021-10-06] MEDS ORDERED: ZINC50TA51 PO (09:04)
[2021-10-06] MEDS ORDERED: CALC-250 PO (09:05)
[2021-10-06] MEDS ORDERED: C,E,1CAP PO (09:05)
[2021-10-16] MEDS ORDERED: BENZ100C18 PO (06:11)
[2021-10-16] MEDS ORDERED: GFCD10B PO (06:11)
== END 2021-10-17 13:55 | disposition home or self-care (01) ==
PROVIDERS: ATTEND Physician Assistant
DX: M76.31 Iliotibial band syndrome, right leg (principal); I10 Essential (primary) hypertension

== ENCOUNTER 2021-10-04 08:31 | Observation (INO) | payer MEDICARE, OTHER ==
[~2021-10-04] VITALS: Ht 177.8 cm; Wt 121.4 kg
--- NOTE | 2021-10-04 09:04 | ED General ---
General Stated Complaint: FREQUENT URINATION - CONFUSION Source of Information: Patient, Family () Exam Limitations: No Limitations History of Present Illness Date Seen by Provider: Oct 04, 2021 Time Seen by Provider: 08:48 Initial Comments Patient is an 81-year-old male who presents to the emergency department with his this evening chief complaint of generalized weakness and not feeling well. states that he went to bed normal last night but got up several times thro ughout the night and did not rest well. She states that he was confused this morning but then clarifies this to say that he is just not acting like he normally does when he gets up in the morning. Patient is able to tell me who he is, where he is and what year it is. He is able to provide some medical history as well as review of systems. He states that this morning "my legs would not hold me up". He denies burning with urination or hematuria. He did not have any diarrhea through the night. He does have a mild sore throat. He denies cough, congestion or runny nose. He is not short of breath. He is not nauseous. He has a cardiac history as well as hypertension. He has stents. His mobile sales consultant is Dr. White. He goes to [facility]. He is COVID vaccinated, no recent sick contacts. No recent traumas or falls. All other review of systems reviewed and negative except as stated. Timing/Duration: 12 Hours Severity: Moderate Associated Systoms: Malaise, Weakness Allergies and Home Medications Allergies Coded Allergies: No Known Drug Allergies (Unverified , 06/15/19) Patient Home Medication List Home Medication List Reviewed: Yes Ascorbate Calcium (Vitamin C) 500 Mg Tablet, 500 MG PO DAILY, (Reported) Entered as Reported by: FLORIDALMA OKEEFE on 06/22/19 112 Aspirin (Aspirin) 81 Mg Tab.chew, 81 MG PO DAILY, (Reported) Entered as Reported by: FLORIDALMA OKEEFE on 06/22/19 112 Atenolol (Atenolol) 25 Mg Tablet, 25 MG PO DAILY, (Reported) Entered as Reported by: FLORIDALMA OKEEFE on 06/22/19 112 Atorvastatin Calcium (Lipitor) 20 Mg Tablet, 20 MG PO DAILY, (Reported) Entered as Reported by: FLORIDALMA OKEEFE on 06/22/19 112 Cyanocobalamin (Vitamin B-12) (Vitamin B12) 5,000 Mcg Tab.rapdis, 5,000 MCG PO DAILY, (Reported) Entered as Reported by: FLORIDALMA OKEEFE on 06/22/191123 Docusate Sodium (Colace) 100 Mg Capsule, 100 MG PO DAILY, (Reported) Entered as Reported by: FLORIDALMA OKEEFE on 06/22/19 112 Levothyroxine Sodium (Levothyroxine Sodium) 175 Mcg Tablet, 175 MCG PO DAILY, (Reported) Entered as Reported by: FLORIDALMA OKEEFE on 06/22/19 112 Lisinopril (Lisinopril) 10 Mg Tablet, 10 MG PO DAILY, (Reported) Entered as Reported by: FLORIDALMA OKEEFE on 06/22/191123 Multivitamin (Once Daily) Unknown Strength Tablet, 1 TAB PO DAILY, (Reported) Entered as Reported by: FLORIDALMA OKEEFE on 06/22/191123 Oxybutynin Chloride (Oxybutynin Chloride) 5 Mg Tablet, 5 MG PO BID, (Reported) Entered as Reported by: FLORIDALMA OKEEFE on 06/22/191123 Review of Systems Review of Systems Constitutional: see HPI, malaise, weakness EENTM: throat pain Respiratory: no symptoms reported Cardiovascular: no symptoms reported Gastrointestinal: no symptoms reported Genitourinary: no symptoms reported Musculoskeletal: no symptoms reported Skin: no symptoms reported Psychiatric/Neurological: Weakness (generalized) All Other Systems Reviewed Negative Unless Noted: Yes Past Dblhqfv-Mcsxtk-Brebcv Hx Immunizations Up To Date Tetanus Booster (TDap): Less than 5yrs Past Medical History Surgeries: Yes (2 KNEES, 2 HIPS, SHOULDER) Gallbladder Respiratory: No Currently Using CPAP: No Currently Using BIPAP: No Cardiac: Yes Coronary Artery Disease, Heart Attack, Hypertension Neurological: No Genitourinary: No Gastrointestinal: Yes (LAZY ESOPHAGUS) Hiatal Hernia Musculoskeletal: Yes (L hip issues) Endocrine: Yes Cancer: No Physical Exam Vital Signs Vital Signs - First Documented 10/04/21 08:40 Temp 37.8 Pulse 73 Resp 16 B/P (MAP) 145/67 (93) Pulse Ox 96 O2 Delivery Room Air Capillary Refill : Height, Weight, BMI Height: '" Weight: lbs. oz. kg; 32.87 BMI Method:Estimated General Appearance: No Apparent Distress, WD/WN Eyes: Bilateral Eye Normal Inspection, Bilateral Eye PERRL, Bilateral Eye EOMI HEENT: Pharyngeal Erythema, Other (slightly dry oral mucosa) Neck: Supple, Lymphadenopathy (L), Lymphadenopathy (R) Respiratory: Lungs Clear, Normal Breath Sounds, No Accessory Muscle Use, No Respiratory Distress Cardiovascular: Regular Rate, Rhythm, Normal Peripheral Pulses, Other (cap refill 2sec) Gastrointestinal: Normal Bowel Sounds, Non Tender, Soft Extremity: Normal Capillary Refill, Normal Inspection, Normal Range of Motion, Pedal Edema, Swelling (bilateral ankles) Neurologic/Psychiatric: Alert, Oriented x3, No Motor/Sensory Deficits, Normal 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, 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 Norm as Tested Skin: Normal Color, Warm/Dry Focused Exam Lactate Level 10/04/21 09:10: Lactic Acid Level 1.19 Lactic Acid Level Laboratory Tests Test 10/04/21 09:10 Lactic Acid Level 1.19 MMOL/L (0.50-2.00) Progress/Results/Core Measures Suspected Sepsis SIRS Temperature: Pulse: Respiratory Rate: Laboratory Tests 10/04/21 09:10: White Blood Count 7.0 Blood Pressure / Mean: 10/04/21 09:10: Lactic Acid Level 1.19 Laboratory Tests 10/04/21 09:10: Creatinine 0.86, INR Comment 1.1, Platelet Count 172, Total Bilirubin 0.7 Results/Orders Lab Results Laboratory Tests Test 10/04/21 09:10 10/04/21 10:50 10/04/21 11:30 Range/Units White Blood Count 7.0 4.3-11.0 10^3/uL Red Blood Count 3.67 L 4.30-5.52 10^6/uL Hemoglobin 12.0 L 13.3-17.7 g/dL Hematocrit 36 L 40-54 % Mean Corpuscular Volume 99 80-99 fL Mean Corpuscular Hemoglobin 33 25-34 pg Mean Corpuscular Hemoglobin Concent 33 32-36 g/dL Red Cell Distribution Width 13.9 10.0-14.5 % Platelet Count 172 130-400 10^3/uL Mean Platelet Volume 9.8 9.0-12.2 fL Immature Granulocyte % (Auto) 0 % Neutrophils (%) (Auto) 83 H 42-75 % Lymphocytes (%) (Auto) 6 L 12-44 % Monocytes (%) (Auto) 10 0-12 % Eosinophils (%) (Auto) 1 0-10 % Basophils (%) (Auto) 0 0-10 % Neutrophils # (Auto) 5.8 1.8-7.8 10^3/uL Lymphocytes # (Auto) 0.4 L 1.0-4.0 10^3/uL Monocytes # (Auto) 0.7 0.0-1.0 10^3/uL Eosinophils # (Auto) 0.0 0.0-0.3 10^3/uL Basophils # (Auto) 0.0 0.0-0.1 10^3/uL Immature Granulocyte # (Auto) 0.0 0.0-0.1 10^3/uL Neutrophils % (Manual) 86 % Lymphocytes % (Manual) 6 % Monocytes % (Manual) 6 % Eosinophils % (Manual) 2 % Blood Morphology Comment NORMAL Prothrombin Time 14.5 12.2-14.7 SEC INR Comment 1.1 0.8-1.4 Activated Partial Thromboplast Time 31 24-35 SEC Sodium Level 138 135-145 MMOL/L Potassium Level 3.6 3.6-5.0 MMOL/L Chloride Level 101 98-107 MMOL/L Carbon Dioxide Level 25 21-32 MMOL/L Anion Gap 12 5-14 MMOL/L Blood Urea Nitrogen 17 7-18 MG/DL Creatinine 0.86 0.60-1.30 MG/DL Estimat Glomerular Filtration Rate 88 BUN/Creatinine Ratio 20 Glucose Level 105 70-105 MG/DL Lactic Acid Level 1.19 0.50-2.00 MMOL/L Calcium Level 9.0 8.5-10.1 MG/DL Corrected Calcium 9.1 8.5-10.1 MG/DL Total Bilirubin 0.7 0.1-1.0 MG/DL Aspartate Amino Transf (AST/SGOT) 17 5-34 U/L Alanine Aminotransferase (ALT/SGPT) 14 0-55 U/L Alkaline Phosphatase 69 40-136 U/L Total Protein 7.3 6.4-8.2 GM/DL Albumin 3.9 3.2-4.5 GM/DL Urine Color YELLOW Urine Clarity SL CLOUDY Urine pH 6.5 5-9 Urine Specific [place] 1.020 1.016-1.022 Urine Protein NEGATIVE NEGATIVE Urine Glucose (UA) NEGATIVE NEGATIVE Urine Ketones NEGATIVE NEGATIVE Urine Nitrite NEGATIVE NEGATIVE Urine Bilirubin NEGATIVE NEGATIVE Urine Urobilinogen 1.0 < = 1.0 MG/DL Urine Leukocyte Esterase NEGATIVE NEGATIVE Urine RBC (Auto) NEGATIVE NEGATIVE Urine RBC NONE /HPF Urine WBC RARE /HPF Urine Squamous Epithelial Cells RARE /HPF Urine Crystals NONE /LPF Urine Bacteria TRACE /HPF Urine Casts NONE /LPF Urine Mucus NEGATIVE /LPF Urine Culture Indicated CULTURE PENDING My Orders Orders - AMANDA HARRIS MD Cbc With Automated Diff (10/04/21 08:59) Comprehensive Metabolic Panel (10/04/21 08:59) Blood Culture (10/04/21 08:59) Sputum Culture (10/04/21 08:59) Urinalysis (10/04/21 08:59) Urine Culture (10/04/21 08:59) Protime With Inr (10/04/21 08:59) Partial Thromboplastin Time (10/04/21 08:59) Chest 1 View, Ap/Pa Only (10/04/21 08:59) Ed Iv/Invasive Line Start (10/04/21 08:59) Ed Iv/Invasive Line Start (10/04/21 08:59) Vital Signs Adult Sepsis Patie Q15M (10/04/21 08:59) O2 (10/04/21 08:59) Remove Rings In Anticipation O (10/04/21 08:59) Lactic Acid Analyzer (10/04/21 08:59) Manual Differential (10/04/21 09:10) Ns Iv 1000 Ml (Sodium Chloride 0.9%) (10/04/21 10:15) Covid 19 Inhouse Test (10/04/21 11:36) Isolation Central Supply Req (10/04/21 11:36) Creatine Kinase (10/04/21 11:56) Thyroid Stimulating Hormone (10/04/21 11:56) Free T4 (Free Thyroxine) (10/04/21 11:56) Hs C Reactive Protein (10/04/21 11:56) Ns Iv 1000 Ml (Sodium Chloride 0.9%) (10/04/21 12:00) Ed Admission (Communication) (10/04/21 11:56) Vital Signs/I&O 10/04/21 10/04/21 08:40 11:45 Temp 37.8 37.5 Pulse 73 Resp 16 B/P (MAP) 145/67 (93) Pulse Ox 96 O2 Delivery Room Air Capillary Refill : Progress Note #1: Time: 11:24 Progress Note Patient's labs reviewed, all within normal limits, no total elevated white blood cell count but he does have a very minimal left shift. History and lactic acid completely negative, urinalysis negative chest x-ray reviewed and negative. He presented with a temp of 100. I did not COVID test him. I did give him a liter of IV fluids. We will see if he can stand and bear weight. If he still cannot we will likely COVID test him. Progress Note #2: Time: 11:59 Progress Note Attempted to stand the patient at the bedside, he has absolutely no proximal muscle strength in order to be able to stand under his own power at the bedside. He is starting to tremor a little bit I am wondering if he is not trying to spike a fever. I talked to Dr. Swain about admitting him observation and she is agreeable. I talked to the patient and his about the plan and they are also agreeable. Will add thyroid function, CK and CRP to his laboratory studies. He will be admitted observation. Dr. Swain is putting in que'd orders. Diagnostic Imaging Diagonstic Imaging: Xray Plain Films/CT/US/NM/MRI: chest Comments [facility], [place] NAME: WONG COLBERT [facility] REC#: [id number] PT STATUS: REG ER : 1940 PHYSICIAN: AMANDA HARRIS MD ADMIT DATE: 10/04/21/ER Signed Date of Exam:10/04/21 CHEST 1 VIEW, AP/PA ONLY EXAMINATION: Chest radiograph, portable AP view. DATE: 10/04/2021 9:56 AM INDICATION: 81-year-old male, weakness. COMPARISON: None. FINDINGS: Heart size and mediastinal contours are unremarkable. There is no identified pneumothorax. There is no large pleural effusion. There is no identified focal airspace consolidation. There are probable left carotid vascular calcifications. IMPRESSION: 1. No identified acute cardiopulmonary abnormality. Dictated by: Dictated on workstation # [id number] Dict: 10/04/21 0958 Trans: 10/04/21 1015 [facility] [id number] Interpreted by: YAS HANDY MD Electronically signed by: YAS HANDY MD 10/04/21 1015 Departure Communication (Admissions) Time/Spoke to Admitting Phy: 11:[address] Swain Impression Primary Impression: Generalized weakness Disposition: ADMITTED INPATIENT Condition: Stable Admissions Decision to Admit Reason: Admit from ER (General) Decision to Admit/Date: Oct 04, 2021 Time/Decision to Admit Time: 12:00 Departure-Patient Inst. Referrals: SHANTELL KRISHNA III, MD (PCP) Primary Care Physician AMANDA HARRIS MD Oct 04, 2021 09:04
[2021-10-04 09:27] LABS: BASOPHILS % (AUTO) 0 % (0-10); EOSINOPHILS % (AUTO) 1 % (0-10); HEMATOCRIT 36 % (40-54); LYMPHOCYTES # (AUTO) 0.4 10^3/uL (1.0-4.0); LYMPHOCYTES % (AUTO) 6 % (12-44); MEAN CORPUSCULAR HEMOGLOBIN 33 pg (25-34); MEAN CORPUSCULAR HGB CONC 33 g/dL (32-36); MEAN CORPUSCULAR VOLUME 99 fL (80-99); MEAN PLATELET VOLUME 9.8 fL (9.0-12.2); MONOCYTES # (AUTO) 0.7 10^3/uL (0.0-1.0); MONOCYTES % (AUTO) 10 % (0-12); NEUTROPHILS # (AUTO) 5.8 10^3/uL (1.8-7.8); NEUTROPHILS % (AUTO) 83 % (42-75); PLATELET COUNT 172 10^3/uL (130-400)
[2021-10-04 09:40] LABS: ALBUMIN 3.9 GM/DL (3.2-4.5); POTASSIUM 3.6 MMOL/L (3.6-5.0)
[2021-10-04 09:41] LABS: INR 1.1 (0.8-1.4); PROTHROMBIN TIME PATIENT 14.5 SEC (12.2-14.7)
[2021-10-04 09:42] LABS: TOTAL PROTEIN 7.3 GM/DL (6.4-8.2)
[2021-10-04 09:44] LABS: BILIRUBIN,TOTAL 0.7 MG/DL (0.1-1.0)
[2021-10-04 09:46] LABS: CREATININE SERUM 0.86 MG/DL (0.60-1.30)
--- NOTE | 2021-10-04 10:06 | Diagnostic Imaging Report ---
EXAMINATION: Chest radiograph, portable AP view. DATE: 10/04/2021 9:56 AM INDICATION: 81-year-old male, weakness. COMPARISON: None. FINDINGS: Heart size and mediastinal contours are unremarkable. There is no identified pneumothorax. There is no large pleural effusion. There is no identified focal airspace consolidation. There are probable left carotid vascular calcifications. IMPRESSION: 1. No identified acute cardiopulmonary abnormality. Dictated by: Dictated on workstation # [id number]
[2021-10-04 10:12] LABS: LYMPHOCYTES % (MANUAL) 6 %; MONOCYTES % (MANUAL) 6 %; NEUTROPHILS % (MANUAL) 86 %
[2021-10-04 10:13] LABS: EOSINOPHILS % (MANUAL) 2 %; RBC MORPH NORMAL
[2021-10-04] MEDS ORDERED: NS IV 1000 ML 1,000 ML IV SCH ×2 (10:15→12:00)
[2021-10-04 11:02] LABS: BILIRUBIN,URINE NEGATIVE (NEGATIVE); CLARITY,URINE SL CLOUDY; COLOR,URINE YELLOW; GLUCOSE, URINE (UA) NEGATIVE (NEGATIVE); KETONES,URINE NEGATIVE (NEGATIVE); LEUKOCYTE ESTERASE ,URINE NEGATIVE (NEGATIVE); NITRITE,URINE NEGATIVE (NEGATIVE); PH,URINE 6.5 (5-9); PROTEIN,URINE NEGATIVE (NEGATIVE)
[2021-10-04 11:13] LABS: BACTERIA,URINE TRACE /HPF; SQUAMOUS EPITHELIAL CELL,UR RARE /HPF; WBC,URINE RARE /HPF
--- NOTE | 2021-10-04 11:53 | History & Physical ---
History of Present Illness Date Seen 10/04/21 Attending Physician Mike Mario III, MD PCP Admitting Physician: Attending Physician: Referring Physician Date of Admission Home Medications & Allergies Home Medications Reviewed patient Home Medication Reconciliation performed by pharmacy medication reconciliations hazardous waste material technician and/or nursing. Patients Allergies have been reviewed. Allergies Allergies Coded Allergies No Known Drug Allergies (Unverified06/15/19) Past Kwljggw-Xwlqxj-Npvqxj Hx Patient Social History Smoking Status: Former Smoker 2nd Hand Smoke Exposure: No Immunizations Up To Date Tetanus Booster (TDap): Less than 5yrs Date of Pneumonia Vaccine: Feb 19, 2017 Date of Influenza Vaccine: Mar 15, 2019 Past Medical History Surgeries: Gallbladder Currently Using CPAP: No Currently Using BIPAP: No Cardiac: Coronary Artery Disease, Heart Attack, Hypertension Gastrointestinal: Hiatal Hernia Physical Exam Physical Exam Vital Signs Vital Signs - First Documented 10/04/21 08:40 Temp 37.8 Pulse 73 Resp 16 B/P (MAP) 145/67 (93) Pulse Ox 96 O2 Delivery Room Air Capillary Refill : Less Than 3 Seconds Height, Weight, BMI Height: '" Weight: lbs. oz. kg; 30.00 BMI Method:Estimated General Appearance: No Apparent Distress, WD/WN Eyes: Bilateral Eye Normal Inspection, Bilateral Eye PERRL, Bilateral Eye EOMI HEENT: Pharyngeal Erythema, Other (slightly dry oral mucosa) Neck: Supple, Lymphadenopathy (L), Lymphadenopathy (R) Respiratory: Lungs Clear, Normal Breath Sounds, No Accessory Muscle Use, No Respiratory Distress Cardiovascular: Regular Rate, Rhythm, Normal Peripheral Pulses, Other (cap refill 2sec) Gastrointestinal: Normal Bowel Sounds, Non Tender, Soft Extremity: Normal Capillary Refill, Normal Inspection, Normal Range of Motion, Pedal Edema Neurologic/Psychiatric: Alert, Oriented x3, No Motor/Sensory Deficits, Normal 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 GELY AMAYA DO Oct 04, 2021 11:53
--- NOTE | 2021-10-04 12:11 | History & Physical-Hospitalist ---
History of Present Illness HPI/Chief Complaint CC: Weakness due to COVID HPI: This is an 81yoWM clinic patient of [facility] who presented to the ER with generalized weakness and low grade fever who underwent entire w/u until COVID swab returned positive. Patient is not hypoxic. Confusion with urinary retention noted. Reviewed labs and imaging scans. COVID vaccinated with 1 booster. Source: patient Exam Limitations: clinical condition Date Seen 10/04/21 Time Seen by a Provider: 12:45 Attending Physician Mike Mario III, MD PCP Admitting Physician: Attending Physician: Referring Physician Date of Admission Home Medications & Allergies Home Medications Reviewed patient Home Medication Reconciliation performed by pharmacy medication reconciliations procurement technician and/or nursing. Patients Allergies have been reviewed. Allergies Allergies Coded Allergies No Known Drug Allergies (Unverified06/15/19) Past Tarfddk-Zmhxrf-Seihfr Hx Patient Social History Marrital Status: Employed/Student: retired Tobacco Use?: No Smoking Status: Former Smoker Immunizations Up To Date Date of Influenza Vaccine: Mar 15, 2019 Tetanus Booster (TDap): Unknown Date of Pneumonia Vaccine: Feb 19, 2017 Current Status Communicates: Verbally Primary Language: Tristanian Preferred Spoken Language: Tristanian Is interpretation needed?: No Implanted or Applied Medical D: Stents Past Medical History Surgeries: Gallbladder Currently Using CPAP: No Currently Using BIPAP: No Coronary Artery Disease, Heart Attack, Hypertension Hiatal Hernia Review of Systems Constitutional: see HPI, dizziness, fever, malaise, weakness EENTM: no symptoms reported Respiratory: no symptoms reported Cardiovascular: no symptoms reported Gastrointestinal: no symptoms reported Genitourinary: other (retention) Musculoskeletal: no symptoms reported Skin: no symptoms reported Psychiatric/Neurological: Other (confusion) All Other Systems Reviewed Negative Unless Noted: Yes Physical Exam Physical Exam Vital Signs Vital Signs - First Documented 10/04/21 10/04/21 10/04/21 08:40 16:27 19:54 Temp 37.8 Pulse 73 Resp 16 B/P (MAP) 145/67 (93) Pulse Ox 96 O2 Delivery Room Air O2 Flow Rate 0.00 FiO2 21 Capillary Refill : Less Than 3 Seconds Height, Weight, BMI Height: '" Weight: lbs. oz. kg; 30.00 BMI Method:Estimated General Appearance: No Apparent Distress, Chronically ill Eyes: Right Eye Normal Inspection, Right Eye PERRL HEENT: PERRL/EOMI, Normal ENT Inspection, Pharynx Normal, Moist Mucous Membrane s Neck: Full Range of Motion, Normal Inspection, Non Tender Respiratory: Chest Non Tender, Lungs Clear, Normal Breath Sounds, No Accessory Muscle Use, No Respiratory Distress Cardiovascular: Regular Rate, Rhythm, No Edema, No Gallop, No JVD, No Murmur, Normal Peripheral Pulses Gastrointestinal: Normal Bowel Sounds, No Organomegaly, No Pulsatile Mass, Non Tender, Soft Back: Normal Inspection, No CVA Tenderness, No Vertebral Tenderness Extremity: Normal Capillary Refill, Normal Inspection, Normal Range of Motion, Non Tender, No Calf Tenderness, No Pedal Edema Neurologic/Psychiatric: Alert, Oriented x3, No Motor/Sensory Deficits, Normal Mood/Affect, Depressed Affect, Disoriented Skin: Normal Color, Warm/Dry Lymphatic: No Adenopathy Results Results/Procedures Labs Laboratory Tests 10/04/21 09:10 Patient resulted labs reviewed. Assessment/Plan Admission Diagnosis Assessment: COVID + Weakness HTN CAD Urinary retention acute Plan: Monitor closely [facility] Admission Status: Observation Reason for Inpatient Admission: GELY Ga DO Oct 04, 2021 12:11
[2021-10-04] MEDS ORDERED: PRAS10TA10 PO (12:18)
[2021-10-04] MEDS ORDERED: LEVO200T62 PO (12:18)
[2021-10-04 12:43] LABS: FREE T4 (FREE THYROXINE) 1.07 NG/DL (0.70-1.48)
[2021-10-04 14:11] VITALS: BP 142/65
[2021-10-04] MEDS ORDERED: LACTULOSE SYRUP 10GM/15ML (ENULOSE) 30ML UDC PO PRN (14:45)
[2021-10-04] MEDS ORDERED: diphenhydrAMINE 50 MG/ML INJ (BENADRYL) IVP PRN (14:45)
[2021-10-04] MEDS ORDERED: MILK OF MAGNESIA 400 MG/5 ML 30 ML UDC PO PRN (14:45)
[2021-10-04] MEDS ORDERED: morphine INJ 4 MG/ML 1 ML (VIAL/SYRINGE) IV PRN (14:45)
[2021-10-04] MEDS ORDERED: ONDANSETRON 4 MG (ZOFRAN) ORAL DISSOLVE TAB PO PRN (14:45)
[2021-10-04] MEDS ORDERED: BISACODYL 10 MG SUPP (DULCOLAX) PR PRN (14:45)
[2021-10-04] MEDS ORDERED: CALCIUM CARBONATE 500 MG (TUMS) TAB.CHEW PO PRN (14:45)
[2021-10-04] MEDS ORDERED: ONDANSETRON 4 MG/2 ML (SDV) Z0FRAN IV PRN (14:45)
[2021-10-04] MEDS ORDERED: polyethylene glycoL POWDER 17 GM (MIRALAX) PACK PO PRN (14:45)
[2021-10-04] MEDS ORDERED: ANTACID SUSP 30 ML UDC (MYLANTA) PO PRN (14:45)
[2021-10-04] MEDS: NS IV 1000 ML 1,000 ML IV SCH (15:03)
[2021-10-04] MEDS: ENOXAPARIN 40 MG/0.4 ML (LOVENOX) SYR SC SCH (15:04)
[2021-10-04 15:15] VITALS: BP 156/69
[2021-10-04 16:27] VITALS: BP 156/69
[2021-10-04] MEDS ORDERED: RT-ALBUTEROL HFA 8.5 GM INHALER IH PRN (16:45)
[2021-10-04] MEDS: ACETAMINOPHEN 325 MG TABLET PO PRN (18:00)
[2021-10-04] MEDS: DOCUSATE SODIUM 100 MG (COLACE) CAP PO SCH (19:39)
[2021-10-04] MEDS: SENNOSIDES 8.6 MG (SENOKOT) TAB PO SCH (19:39)
[2021-10-04 19:43] VITALS: BP 139/65
[2021-10-04] MEDS: RT-ALBUTEROL HFA 8.5 GM INHALER IH SCH (19:54)
[2021-10-04 23:00] VITALS: BP 126/59
[2021-10-05 03:00] VITALS: BP 131/62
[2021-10-05] MEDS: NS IV 1000 ML 1,000 ML IV SCH ×2 (03:08→15:29)
--- NOTE | 2021-10-05 06:14 | Progress Note - Hospitalist ---
Subjective HPI/CC On Admission Date Seen by Provider: Oct 05, 2021 Time Seen by Provider: 10:30 CC: Weakness due to COVID HPI: This is an 81yoWM clinic patient of [facility] who presented to the ER with generalized weakness and low grade fever who underwent entire w/u until COVID swab returned positive. Patient is not hypoxic. Confusion with urinary retention noted. Reviewed labs and imaging scans. COVID vaccinated with 1 booster. Subjective/Events-last exam Patient much improved No falls Celestin cath in place Labs reviewed Eating well Using IS No pain Review of Systems General: Fatigue, Malaise Focused Exam Lactate Level 10/04/21 09:10: Lactic Acid Level 1.19 Objective Exam Vital Signs Vital Signs Date Time Temp Pulse Resp B/P (MAP) Pulse Ox O2 Delivery O2 Flow Rate FiO2 10/05/21 13:00 60 10/05/21 11:54 36.4 20 121/76 (91) 92 Room Air 10/05/21 07:15 0.00 10/04/21 16:27 21 Capillary Refill : Less Than 3 Seconds General Appearance: No Apparent Distress, WD/WN, Chronically ill Respiratory: Lungs Clear, Normal Breath Sounds Cardiovascular: Regular Rate, Rhythm Neurologic/Psychiatric: Alert, Oriented x3, No Motor/Sensory Deficits, Normal Mood/Affect Results/Procedures Lab Laboratory Tests 10/05/21 06:05 Patient resulted labs reviewed. Assessment/Plan Assessment and Plan Assess & Plan/Chief Complaint Assessment: COVID + Weakness HTN CAD Urinary retention acute Plan: Monitor closely Celestin Home GELY Costello DO Oct 05, 2021 06:14
[2021-10-05 06:22] LABS: BASOPHILS % (AUTO) 0 % (0-10); EOSINOPHILS % (AUTO) 0 % (0-10); HEMATOCRIT 34 % (40-54); HEMOGLOBIN 11.2 g/dL (13.3-17.7); LYMPHOCYTES # (AUTO) 0.6 10^3/uL (1.0-4.0); LYMPHOCYTES % (AUTO) 7 % (12-44); MEAN CORPUSCULAR HEMOGLOBIN 33 pg (25-34); MEAN CORPUSCULAR HGB CONC 33 g/dL (32-36); MEAN CORPUSCULAR VOLUME 97 fL (80-99); MEAN PLATELET VOLUME 9.8 fL (9.0-12.2); MONOCYTES # (AUTO) 0.7 10^3/uL (0.0-1.0); MONOCYTES % (AUTO) 8 % (0-12); NEUTROPHILS # (AUTO) 7.2 10^3/uL (1.8-7.8); NEUTROPHILS % (AUTO) 84 % (42-75); PLATELET COUNT 140 10^3/uL (130-400); WHITE BLOOD COUNT 8.6 10^3/uL (4.3-11.0)
[2021-10-05 06:34] LABS: ALBUMIN 3.3 GM/DL (3.2-4.5); POTASSIUM 3.3 MMOL/L (3.6-5.0)
[2021-10-05 06:36] LABS: CALCIUM 8.4 MG/DL (8.5-10.1)
[2021-10-05 06:37] LABS: TOTAL PROTEIN 6.3 GM/DL (6.4-8.2)
[2021-10-05 06:39] LABS: BILIRUBIN,TOTAL 0.7 MG/DL (0.1-1.0)
[2021-10-05 06:40] LABS: CREATININE SERUM 0.76 MG/DL (0.60-1.30)
[2021-10-05] MEDS: RT-ALBUTEROL HFA 8.5 GM INHALER IH SCH ×2 (07:15→20:37)
[2021-10-05 07:28] VITALS: BP 134/73
[2021-10-05] MEDS: DOCUSATE SODIUM 100 MG (COLACE) CAP PO SCH ×2 (10:44→21:00)
[2021-10-05] MEDS: SENNOSIDES 8.6 MG (SENOKOT) TAB PO SCH ×2 (10:44→21:00)
[2021-10-05 11:54] VITALS: BP 121/76
[2021-10-05] MEDS: ENOXAPARIN 40 MG/0.4 ML (LOVENOX) SYR SC SCH (15:29)
[2021-10-05 16:37] VITALS: BP 114/63
[2021-10-05 20:26] VITALS: BP 119/56
[2021-10-05 23:22] VITALS: BP 133/63
[2021-10-06 03:23] VITALS: BP 150/68
[2021-10-06] MEDS: NS IV 1000 ML 1,000 ML IV SCH (03:27)
--- NOTE | 2021-10-06 06:08 | Progress Note - Hospitalist ---
Subjective HPI/CC On Admission Date Seen by Provider: Oct 06, 2021 Time Seen by Provider: 10:00 CC: Weakness due to COVID HPI: This is an 81yoWM clinic patient of [facility] who presented to the ER with generalized weakness and low grade fever who underwent entire w/u until COVID swab returned positive. Patient is not hypoxic. Confusion with urinary retention noted. Reviewed labs and imaging scans. COVID vaccinated with 1 booster. Subjective/Events-last exam Pt is doing a lot better Will discontinue catheter since he doesn't have bladder problems at home In-patient rehab may be an option tomorrow after he gets out of isolation is now sick Cough syrup is ordered Review of Systems General: Fatigue, Malaise Neurological: Weakness Focused Exam Lactate Level 10/04/21 09:10: Lactic Acid Level 1.19 Objective Exam Vital Signs Vital Signs Date Time Temp Pulse Resp B/P (MAP) Pulse Ox O2 Delivery O2 Flow Rate FiO2 10/07/21 04:30 36.4 74 24 146/71 (96) 97 Room Air 10/05/21 20:37 0.00 10/04/21 16:27 21 Capillary Refill : Less Than 3 Seconds General Appearance: No Apparent Distress, WD/WN, Chronically ill Respiratory: Lungs Clear, Normal Breath Sounds Cardiovascular: Regular Rate, Rhythm Neurologic/Psychiatric: Alert, Oriented x3 Results/Procedures Lab Laboratory Tests 10/07/21 06:04 Patient resulted labs reviewed. Assessment/Plan Assessment and Plan Assess & Plan/Chief Complaint Assessment: COVID + Weakness HTN CAD Urinary retention acute Plan: Monitor closely Celestin Home meds 10/06/2021: DC Celestin Bladder meds if needed if retention recurs PT and OT GELY AMAYA DO Oct 06, 2021 06:08
[2021-10-06 06:37] LABS: BASOPHILS % (AUTO) 0 % (0-10); EOSINOPHILS # (AUTO) 0.1 10^3/uL (0.0-0.3); EOSINOPHILS % (AUTO) 1 % (0-10); HEMATOCRIT 33 % (40-54); HEMOGLOBIN 11.1 g/dL (13.3-17.7); LYMPHOCYTES # (AUTO) 0.7 10^3/uL (1.0-4.0); LYMPHOCYTES % (AUTO) 12 % (12-44); MEAN CORPUSCULAR HEMOGLOBIN 33 pg (25-34); MEAN CORPUSCULAR HGB CONC 33 g/dL (32-36); MEAN CORPUSCULAR VOLUME 99 fL (80-99); MEAN PLATELET VOLUME 9.9 fL (9.0-12.2); MONOCYTES # (AUTO) 0.4 10^3/uL (0.0-1.0); MONOCYTES % (AUTO) 6 % (0-12); NEUTROPHILS # (AUTO) 5.2 10^3/uL (1.8-7.8); NEUTROPHILS % (AUTO) 81 % (42-75); PLATELET COUNT 132 10^3/uL (130-400); WHITE BLOOD COUNT 6.5 10^3/uL (4.3-11.0)
[2021-10-06 06:47] LABS: POTASSIUM 3.6 MMOL/L (3.6-5.0)
[2021-10-06 06:48] LABS: CALCIUM 8.1 MG/DL (8.5-10.1)
[2021-10-06 06:49] LABS: TOTAL PROTEIN 6.1 GM/DL (6.4-8.2)
[2021-10-06 06:51] LABS: BILIRUBIN,TOTAL 0.5 MG/DL (0.1-1.0)
[2021-10-06 06:53] LABS: CREATININE SERUM 0.76 MG/DL (0.60-1.30)
[2021-10-06 07:50] VITALS: BP 136/64
[2021-10-06] MEDS ORDERED: ZINC50TA51 PO (09:04)
[2021-10-06] MEDS ORDERED: CALC-250 PO (09:05)
[2021-10-06] MEDS ORDERED: C,E,1CAP PO (09:05)
[2021-10-06] MEDS: SENNOSIDES 8.6 MG (SENOKOT) TAB PO SCH ×2 (09:36→20:39)
[2021-10-06] MEDS: DOCUSATE SODIUM 100 MG (COLACE) CAP PO SCH ×2 (09:36→20:38)
[2021-10-06] MEDS: RT-ALBUTEROL HFA 8.5 GM INHALER IH SCH ×2 (09:36→22:38)
--- NOTE | 2021-10-06 09:57 | Physical Therapy Evaluation ---
PT Evaluation-General Medical Diagnosis Admission Date Oct 04, 2021 at 11:59 Medical Diagnosis: covid, weakness Onset Date: Oct 04, 2021 Therapy Diagnosis Therapy Diagnosis: impaired mobility, strength, endurance Precautions Precautions/Isolations: Contact Isolation, Droplet Isolation Referral Physician: Merna Swain DO Reason for Referral: Evaluation/Treatment Medical History Additional Medical History Past Medical History Surgeries: Gallbladder Currently Using CPAP: No Currently Using BIPAP: No Coronary Artery Disease, Heart Attack, Hypertension Hiatal Hernia Reviewed History: Yes Social History Current Living Status: Spouse Prior Prior Level of Function SCALE: Activities may be completed with or without assistive devices. 9-Dgukfpzjyu-yzaploz completes the activity by him/herself with no assistance from a helper. 5-Set-up or Clean-up Assistance-helper sets up or cleans up; patient completes activity. [place] assists only prior to or following the activity. 4-Supervision or Touching Assistance-helper provides verbal cues and/or touching/steadying and/or contact guard assistance as patient completes activity. Assistance may be provided throughout the activity or intermittently. 3-Partial/Moderate Assistance-helper does LESS THAN HALF the effort. [place] lifts, holds or supports trunk or limbs, but provides less than half the effort. 2-Substantial/Maximal Assistance-helper does MORE THAN HALF the effort. [place] lifts or holds trunk or limbs and provides more than half the effort. 0-Ueooarbpe-ovhhup does ALL the effort. Patient does none of the effort to complete the activity. Or, the assistance of 2 or more helpers is required for the patient to complete the activity. If activity was not attempted, code reason: 7-Patient Refused. 9-Not Applicable-not attempted and the patient did not perform the activity before the current illness, exacerbation or injury. 10-Not Attempted due to Environmental Limitations-(lack of equipment, weather restraints, etc.). 88-Not Attempted due to Medical Conditions or Safety Concerns. Bed Mobility: 6 Transfers (B,C,W/C): 6 Gait: 6 Stairs: 6 Indoor Mobility (Ambulation): Independent Stairs: Independent recently patient has been using a SPC and walker due to weakness PT Evaluation-Current Subjective Patient in bed pre tx, agrees to PT, has no complaints of pain. Pt/Family Goals to be independent at home Objective Patient Orientation: Person, Place, Situation Attachments: Celestin Catheter, IV ROM/Strength ROM Lower Extremities WNL, except knees don't quite have full extension (has had bilateral TKA) Strength Lower Extremities LLE (hip flexion 3/5, knee flexion 4/5, knee extension 4+/5, dorsiflexin 3/5), RLE (hip flexion 3+/5, knee flexion 4/5, knee extension 4+/5, dorsiflexin 4/5) Sensory Vision: Functional Hearing: Functional Sensation Right Lower Extremit: Intact Sensation Left Lower Extremity: Intact Transfers Roll Left to Right (QC): 6 Sit to Lying (QC): 3 Lying to Sitting/Side of Bed(Q: 3 Sit to Stand (QC): 4 min assist for supine to sit, mod assist for sit to supine Gait Does the Patient Walk?: Yes Mode of Locomotion: Walk Anticipated Mode of Locomotion: Walk Walk 10 feet (QC): 4 Distance: 20' Gait Assistive Device: FWW Comments/Gait Description very slow ambulation, no SOB but fatigued Balance Sitting Static: Normal Sitting Dynamic: Normal Standing Static: Fair Standing Dynamic: Fair Treatment BLE seated exercises x20 (AP, LAQ) Assessment/Needs Patient in bed post tx with nurse call, phone, tray, all needs met. Patient has impaired mobility, strength, endurance. He moves extremely slowly, needs assist with supine <-> sit but just CGA for transfers and ambulation Rehab Potential: Fair PT Doffer Goals Ch[facility] Goals PT Chcf Goals Time Frame: Oct 13, 2021 Roll Left & Right (QC): 6 Sit to Lying (QC): 6 Lying-Sitting on Side/Bed(QC): 6 Sit to Stand (QC): 6 Chair/Vja-in-Kozxz Xfer(QC): 6 Walk 10 feet (QC): 6 Walk 50ft with 2 Turns (QC): 6 PT Plan Problem List Problem List: Activity Tolerance, Functional Strength, Safety, Balance, Gait, Transfer, Bed Mobility, ROM Treatment/Plan Treatment Plan: Continue Plan of Care Treatment Plan: Bed Mobility, Education, Functional Activity Cari, Functional Strength, Gait, Safety, Therapeutic Exercise, Transfers Treatment Duration: Oct 13, 2021 Frequency: 6 times per week Estimated Hrs Per Day: .25 hour per day Patient and/or Family Agrees t: Yes Safety Risks/Education Patient Education: Gait Training, Transfer Techniques, Correct Positioning, Safety Issues Teaching Recipient: Patient Teaching Methods: Demonstration, Discussion Response to Teaching: Reinforcement Needed Discharge Recommendations Plan Patient will perform bed mobility and transfer training, balance and endurance training, functional strengthening, stair training, gait training, and education, to improve functional mobility and independence at home. Therapy Discharge Recommendati: Scheduled Assistance, Home & Family, Post Acute PT Time/GCodes Time In: 909 Time Out: 927 Total Billed Treatment Time: 18 Total Billed Treatment 1 visit ALLYN 18' SAEID ARELLANO PT Oct 06, 2021 09:57
--- NOTE | 2021-10-06 10:34 | Occupational Therapy Eval ---
OT Evaluation-General/PLF Medical Diagnosis Admission Date Oct 04, 2021 at 11:59 Medical Diagnosis: covid, weakness Onset Date: Oct 04, 2021 Therapy Diagnosis Therapy Diagnosis: reduced adl status Precautions Precautions/Isolations: Contact Isolation, Droplet Isolation, Fall Prevention Referral Physician: Merna Swain DO Referral Reason: Evaluation/Treatment Medical History Pertinent Medical History: CAD, HTN Current History pt presents to ER with weakness and fever. Found to be positive for Covid 19. Per patient he lives with his in a single story home. He was indep with adls and shares iadl responsibilities with his . He uses a cane at baseline. Social History Home: Single Level Current Living Status: Spouse ADL-Prior Level of Function SCALE: Activities may be completed with or without assistive devices. 3-Ifqongvvbi-rmxkwdd completes the activity by him/herself with no assistance from a helper. 5-Set-up or Clean-up Assistance-helper sets up or cleans up; patient completes activity. [place] assists only prior to or following the activity. 4-Supervision or Touching Assistance-helper provides verbal cues and/or touching/steadying and/or contact guard assistance as patient completes activity. Assistance may be provided throughout the activity or intermittently. 3-Partial/Moderate Assistance-helper does LESS THAN HALF the effort. [place] lifts, holds or supports trunk or limbs, but provides less than half the effort. 2-Substantial/Maximal Assistance-helper does MORE THAN HALF the effort. [place] lifts or holds trunk or limbs and provides more than half the effort. 1-Gnrmoalgx-ndwdcg does ALL the effort. Patient does none of the effort to complete the activity. Or, the assistance of 2 or more helpers is required for the patient to complete the activity. If activity was not attempted, code reason: 7-Patient Refused. 9-Not Applicable-not attempted and the patient did not perform the activity before the current illness, exacerbation or injury. 10-Not Attempted due to Environmental Limitations-(lack of equipment, weather restraints, etc.). 88-Not Attempted due to Medical Conditions or Safety Concerns. Self Care: Independent Functional Cognition: Independent DME/Equipment: Shower Drive Self: Yes OT Current Status Subjective Pt reports pain in chest from constant coughing. RN in room and is aware of pain. Appearance Pt returned to supine in bed, all needs within reach at OT departure. Mental Status/Objective Patient Orientation: Person, Place, Situation Attachments: [place] Catheter, IV Current Upper Extremity ROM impaired. L shoulder ~130 degrees AROM, R shoulder ~90 degrees AROM Elbow-distally WNL Upper Extremity Strength R shoulder not tested due to c/o pain. L shoulder: 3-/5 bilateral elbows: 3+/5 bilateral research animal attendant: poor ADL-Treatment Lower Body Dressing (QC): 2 (per clinical judgment) On/Off Footwear (QC): 2 Toileting Hygiene (QC): 1 (ridley catheter) Supine>sit: min-mod a to elevate torso. Extra time and cues to square hips at side of bed. Consistent coughing throughout transfer. Mod a to don slip on shoes over heels. Pt unable to demonstrate enough flexibility to reach feet. Anticipate max a to don socks and/or pants over feet. Mod a to stand from low surface, CGA when bed raised. Once upright, steadying assist needed. Increased balance assist required when removing single UE support from walker. At this time, pt would likely need at least min assist during functional standing tasks such as clothing management. He was able to take 3-4 steps towards HOB with use of walker and CGA. Pt fatigues easily. Min a to return to supine. Education OT Patient Education: Correct positioning, Energy conservation, Purpose of tx/functional activities, Reviewed precautions, Safety issues, Transfer techniques Teaching Recipient: Patient Teaching Methods: Demonstration, Discussion Response to Teaching: Verbalize Understanding, Reinforcement Needed OT Machine Ceramic Coater Goals [place] Goals Time Frame: Oct 23, 2021 Oral Hygiene (QC): 5 Toileting Hygiene (QC): 4 Upper Body Dressing (QC): 4 Lower Body Dressing (QC): 4 On/Off Footwear (QC): 3 1=Demonstrate adherence to instructed precautions during ADL tasks. 2=Patient will verbalize/demonstrate understanding of assistive devices/modifications for ADL. 3=Patient will improve strength/tolerance for activity to enable patient to perform ADL's. OT Education/Plan Problem List/Assessment Assessment: Decreased Activ Tolerance, Decreased UE Strength, Impaired Bed Mobility, Impaired Funct Balance, Impaired I ADL's, Impaired Self-Care Skills, Restricted Funct UE ROM Discharge Recommendations Plan/Recommendations: Continue POC Therapy Discharge Recommendati: Post Acute OT Treatment Plan/Plan of Care Treatment,Training & Education: Yes Patient would benefit from OT for education, treatment and training to promote independence in ADL's, mobility, safety and/or upper extremity function for ADL's. Plan of Care: ADL Retraining, Functional Mobility, Group Exercise/Act as Ind, UE Funct Exercise/Act Treatment Duration: Oct 23, 2021 Frequency: 3 times per week (3-5x/week) Estimated Hrs Per Day: .25 hour per day Agreement: Yes Rehab Potential: Fair Time/GCodes Start Time: 09:38 Stop Time: 09:54 Total Time Billed (hr/min): 16 Billed Treatment Time 1 visit Gabby Machado OT Oct 06, 2021 10:34
[2021-10-06] MEDS: guaiFENesin/DM (ROBITUSSIN DM) 10 ML UDC PO PRN ×2 (10:52→20:39)
[2021-10-06] MEDS: BENZONATATE 100 MG (TESSALON) CAPSULE PO SCH ×3 (10:52→20:39)
[2021-10-06 11:36] VITALS: BP 150/65
[2021-10-06] MEDS: ENOXAPARIN 40 MG/0.4 ML (LOVENOX) SYR SC SCH (15:09)
[2021-10-06 15:11] VITALS: BP 135/64
[2021-10-06] MEDS: BETHANECHOL 25 MG (URECHOLINE) TAB PO SCH ×2 (18:33→20:39)
[2021-10-06] MEDS: TAMSULOSIN 0.4 MG (FLOMAX) CAP PO SCH (18:33)
[2021-10-06 19:38] VITALS: BP 145/62
[2021-10-06] MEDS: diphenhydrAMINE 25 MG TAB (BENADRYL) PO PRN (20:39)
[2021-10-06] MEDS: ACETAMINOPHEN 325 MG TABLET PO PRN (20:39)
[2021-10-06] MEDS: MELATONIN 3 MG TABLET PO PRN (20:39)
[2021-10-07] VITALS (7 sets, daily range): BP systolic 113–155; BP diastolic 58–84
[2021-10-07] MEDS: BETHANECHOL 25 MG (URECHOLINE) TAB PO SCH ×4 (05:17→21:09)
[2021-10-07 06:15] LABS: BASOPHILS % (AUTO) 0 % (0-10); EOSINOPHILS # (AUTO) 0.2 10^3/uL (0.0-0.3); EOSINOPHILS % (AUTO) 3 % (0-10); HEMATOCRIT 34 % (40-54); HEMOGLOBIN 11.2 g/dL (13.3-17.7); LYMPHOCYTES # (AUTO) 0.6 10^3/uL (1.0-4.0); LYMPHOCYTES % (AUTO) 12 % (12-44); MEAN CORPUSCULAR HEMOGLOBIN 32 pg (25-34); MEAN CORPUSCULAR HGB CONC 33 g/dL (32-36); MEAN CORPUSCULAR VOLUME 98 fL (80-99); MEAN PLATELET VOLUME 9.9 fL (9.0-12.2); MONOCYTES # (AUTO) 0.4 10^3/uL (0.0-1.0); MONOCYTES % (AUTO) 8 % (0-12); NEUTROPHILS # (AUTO) 4.1 10^3/uL (1.8-7.8); NEUTROPHILS % (AUTO) 77 % (42-75); PLATELET COUNT 131 10^3/uL (130-400); WHITE BLOOD COUNT 5.3 10^3/uL (4.3-11.0)
[2021-10-07 06:28] LABS: ALBUMIN 3.1 GM/DL (3.2-4.5); POTASSIUM 3.6 MMOL/L (3.6-5.0)
[2021-10-07 06:30] LABS: CALCIUM 8.3 MG/DL (8.5-10.1)
[2021-10-07 06:31] LABS: TOTAL PROTEIN 6.2 GM/DL (6.4-8.2)
[2021-10-07 06:33] LABS: BILIRUBIN,TOTAL 0.4 MG/DL (0.1-1.0)
[2021-10-07 06:34] LABS: CREATININE SERUM 0.72 MG/DL (0.60-1.30)
[2021-10-07] MEDS: RT-ALBUTEROL HFA 8.5 GM INHALER IH SCH ×2 (07:42→21:32)
[2021-10-07] MEDS: SENNOSIDES 8.6 MG (SENOKOT) TAB PO SCH ×2 (09:19→21:09)
[2021-10-07] MEDS: BENZONATATE 100 MG (TESSALON) CAPSULE PO SCH ×3 (09:19→21:09)
[2021-10-07] MEDS: DOCUSATE SODIUM 100 MG (COLACE) CAP PO SCH ×2 (09:19→21:10)
--- NOTE | 2021-10-07 10:30 | Occupational Ther Daily Note ---
OT Current Status-Daily Note Subjective Pt alert, lying in bed. Pt agrees to therapy. No c/o pain. Mental Status/Objective Patient Orientation: Person, Place, Time, Situation Attachments: IV, Telemetry ADL-Treatment Pt agrees to sponge bath. Supine to EOB independent. Set up to don shoes while sitting EOB. Using FWW, pt able to transfer from EOB to recliner with CGA. Pt stood with CGA using FWW to cleanse kwesi area/buttocks, assist to cleanse thoroughly after pt attempted. In sitting pt able to reach all areas except feet to bath. Assist to use shampoo cap for hair. Pt stated that he had already completed oral care prior to OT session. After session, pt sitting in recliner with call light/phone in reach. All needs met in room. Therapy Code Descriptions/Definitions Functional [place] Measure: 0=Not Assessed/NA 4=Minimal Assistance 1=Total Assistance 5=Supervision or Setup 2=Maximal Assistance 6=Modified [place] 3=Moderate Assistance 7=Complete IndependenceSCALE: Activities may be completed with or without assistive devices. 0-Zdfeymmvmj-qdnrsvk completes the activity by him/herself with no assistance from a helper. 5-Set-up or Clean-up Assistance-helper sets up or cleans up; patient completes activity. [place] assists only prior to or following the activity. 4-Supervision or Touching Assistance-helper provides verbal cues and/or touching/steadying and/or contact guard assistance as patient completes activ ity. Assistance may be provided throughout the activity or intermittently. 3-Partial/Moderate Assistance-helper does LESS THAN HALF the effort. [place] lifts, holds or supports trunk or limbs, but provides less than half the effort. 2-Substantial/Maximal Assistance-helper does MORE THAN HALF the effort. [place] lifts or holds trunk or limbs and provides more than half the effort. 3-Jwvjmlven-lszpbj does ALL the effort. Patient does none of the effort to complete the activity. Or, the assistance of 2 or more helpers is required for the patient to complete the activity. If activity was not attempted, code reason: 7-Patient Refused. 9-Not Applicable-not attempted and the patient did not perform the activity before the current illness, exacerbation or injury. 10-Not Attempted due to Environmental Limitations-(lack of equipment, weather restraints, etc.). 88-Not Attempted due to Medical Conditions or Safety Concerns. Oral Hygiene (QC): 5 Shower/Bathe Self (QC): 3 (mod a) Upper Body Dressing (QC): 5 On/Off Footwear: 4 OT Antique Refinisher Goals Antique Refinisher Goals Time Frame: Oct 23, 2021 Oral Hygiene (QC): 5 Toileting Hygiene (QC): 4 Upper Body Dressing (QC): 4 Lower Body Dressing (QC): 4 On/Off Footwear (QC): 3 1=Demonstrate adherence to instructed precautions during ADL tasks. 2=Patient will verbalize/demonstrate understanding of assistive devices/modifications for ADL. 3=Patient will improve strength/tolerance for activity to enable patient to perform ADL's. OT Education/Plan Problem List/Assessment Assessment: Decreased Activ Tolerance, Decreased UE Strength, Impaired Bed Mobility, Impaired Self-Care Skills Discharge Recommendations Plan/Recommendations: Continue POC Treatment Plan/Plan of Care Patient would benefit from OT for education, treatment and training to promote independence in ADL's, mobility, safety and/or upper extremity function for ADL's. Plan of Care: ADL Retraining, Functional Mobility, Group Exercise/Act as Ind, UE Funct Exercise/Act Treatment Duration: Oct 23, 2021 Frequency: 3 times per week (3-5x/week) Estimated Hrs Per Day: .25 hour per day Agreement: Yes Rehab Potential: Fair Time/GCodes Start Time: 07:45 Stop Time: 08:20 Total Time Billed (hr/min): 35 Billed Treatment Time 1 visit-ADL 2 (35 min) JACKY MATHEWS Oct 07, 2021 10:30
--- NOTE | 2021-10-07 10:46 | Progress Note - Hospitalist ---
Subjective HPI/CC On Admission Date Seen by Provider: Oct 07, 2021 Time Seen by Provider: 10:45 CC: Weakness due to COVID HPI: This is an 81yoWM clinic patient of [facility] who presented to the ER with generalized weakness and low grade fever who underwent entire w/u until COVID swab returned positive. Patient is not hypoxic. Confusion with urinary retention noted. Reviewed labs and imaging scans. COVID vaccinated with 1 booster. Subjective/Events-last exam Pt is doing really well Cough is improved Chest x-ray and Procalcitonin ordered due to crackles in left lower lobe He will go to rehab tomorrow or Review of Systems Pulmonary: Dyspnea, Cough Objective Exam Vital Signs Vital Signs Date Time Temp Pulse Resp B/P (MAP) Pulse Ox O2 Delivery O2 Flow Rate FiO2 10/07/21 19:23 Room Air 10/07/21 19:19 36.4 69 18 152/84 (106) 96 10/07/21 11:49 21 10/07/21 08:00 0.00 Capillary Refill : Less Than 3 Seconds General Appearance: No Apparent Distress, WD/WN, Chronically ill Respiratory: Lungs Clear, Normal Breath Sounds, Crackles Cardiovascular: Regular Rate, Rhythm Neurologic/Psychiatric: Alert, Oriented x3 Results/Procedures Lab Laboratory Tests 10/07/21 06:04 Patient resulted labs reviewed. Assessment/Plan Assessment and Plan Assess & Plan/Chief Complaint Assessment: COVID + Weakness HTN CAD Urinary retention acute Plan: Monitor closely Celestin Home meds 10/06/2021: DC Celestin Bladder meds if needed if retention recurs PT and OT 10/07: Isolation DC tomorrow Check PCT and CXR GELY AMAYA DO Oct 07, 2021 10:46
--- NOTE | 2021-10-07 11:01 | Physical Therapy Daily Note ---
PT Daily Note-Current Subjective Patient in recliner pre tx, agrees to PT, has no complaints of pain. Appearance Patient in recliner post tx with nurse call, phone, tray, all needs met. Mental Status Patient Orientation: Person, Place, Situation Transfers SCALE: Activities may be completed with or without assistive devices. 9-Mxxrofahwm-eumrodk completes the activity by him/herself with no assistance from a helper. 5-Set-up or Clean-up Assistance-helper sets up or cleans up; patient completes activity. [place] assists only prior to or following the activity. 4-Supervision or Touching Assistance-helper provides verbal cues and/or dutch ceci/steadying and/or contact guard assistance as patient completes activity. Assistance may be provided throughout the activity or intermittently. 3-Partial/Moderate Assistance-helper does LESS THAN HALF the effort. [place] lifts, holds or supports trunk or limbs, but provides less than half the effort. 2-Substantial/Maximal Assistance-helper does MORE THAN HALF the effort. [place] lifts or holds trunk or limbs and provides more than half the effort. 0-Etblshocc-mdbgmy does ALL the effort. Patient does none of the effort to complete the activity. Or, the assistance of 2 or more helpers is required for the patient to complete the activity. If activity was not attempted, code reason: 7-Patient Refused. 9-Not Applicable-not attempted and the patient did not perform the activity before the current illness, exacerbation or injury. 10-Not Attempted due to Environmental Limitations-(lack of equipment, weather restraints, etc.). 88-Not Attempted due to Medical Conditions or Safety Concerns. Sit to Stand (QC): 4 Chair/Jqj-pe-Aqize Xfer(QC): 4 Gait Training Distance: 60' Walk 10 feet (QC): 4 Walk 50 ft with 2 Turns(QC): 4 Gait Persons Needed: 1 Gait Assistive Device: FWW SBA, very slow ambulation, shuffles Exercises Seated Therapy Exercises: Ankle pumps, Long arc quads Seated Reps: 20 Treatments transfers, ambulation, LE strengthening Assessment Current Status: Fair Progress improving general mobility PT Pattern Weaver Goals [place] Goals PT [place] Goals Time Frame: Oct 13, 2021 Roll Left & Right (QC): 6 Sit to Lying (QC): 6 Lying-Sitting on Side/Bed(QC): 6 Sit to Stand (QC): 6 Chair/Srw-cg-Xnwrq Xfer(QC): 6 Walk 10 feet (QC): 6 Walk 50ft with 2 Turns (QC): 6 PT Plan Problem List Problem List: Activity Tolerance, Functional Strength, Safety, Balance, Gait, Transfer, Bed Mobility, ROM Treatment/Plan Treatment Plan: Continue Plan of Care Treatment Plan: Bed Mobility, Education, Functional Activity Cari, Functional Strength, Gait, Safety, Therapeutic Exercise, Transfers Treatment Duration: Oct 13, 2021 Frequency: 6 times per week Estimated Hrs Per Day: .25 hour per day Patient and/or Family Agrees t: Yes Safety Risks/Education Patient Education: Gait Training, Transfer Techniques, Correct Positioning, Safety Issues Teaching Recipient: Patient Teaching Methods: Demonstration, Discussion Response to Teaching: Reinforcement Needed Time/GCodes Time In: 1025 Time Out: 1038 Total Billed Treatment Time: 13 Total Billed Treatment 1 visit FA Germán' SAEID ARELLANO PT Oct 07, 2021 11:01
--- NOTE | 2021-10-07 11:13 | Diagnostic Imaging Report ---
INDICATION: Abnormal oscillatory breath sounds. EXAMINATION: Portable chest at 7:49 AM. FINDINGS: The heart size and pulmonary vascularity are normal. There are no infiltrates, effusions, or pneumothoraces. IMPRESSION: No acute abnormalities in the chest. No appreciable change compared to 10/04/2021. Dictated by: Dictated on workstation # [id number]
[2021-10-07] MEDS: ENOXAPARIN 40 MG/0.4 ML (LOVENOX) SYR SC SCH (16:12)
[2021-10-07] MEDS: TAMSULOSIN 0.4 MG (FLOMAX) CAP PO SCH (17:36)
[2021-10-07] MEDS: guaiFENesin/DM (ROBITUSSIN DM) 10 ML UDC PO PRN (21:09)
[2021-10-07] MEDS: ACETAMINOPHEN 325 MG TABLET PO PRN (21:09)
[2021-10-07] MEDS: diphenhydrAMINE 25 MG TAB (BENADRYL) PO PRN (21:10)
[2021-10-07] MEDS: MELATONIN 3 MG TABLET PO PRN (21:10)
[2021-10-08] VITALS: BP 119/69
[2021-10-08 03:45] VITALS: BP 162/77
[2021-10-08] MEDS: BETHANECHOL 25 MG (URECHOLINE) TAB PO SCH ×2 (05:03→12:04)
--- NOTE | 2021-10-08 06:01 | Progress Note - Hospitalist ---
Subjective HPI/CC On Admission Date Seen by Provider: Oct 08, 2021 Time Seen by Provider: 09:30 CC: Weakness due to COVID HPI: This is an 81yoWM clinic patient of [facility] who presented to the ER with generalized weakness and low grade fever who underwent entire w/u until COVID swab returned positive. Patient is not hypoxic. Confusion with urinary retention noted. Reviewed labs and imaging scans. COVID vaccinated with 1 booster. Objective Exam Vital Signs Vital Signs Date Time Temp Pulse Resp B/P (MAP) Pulse Ox O2 Delivery O2 Flow Rate FiO2 10/08/21 12:36 36.8 65 20 138/66 96 Room Air 0.00 10/07/21 11:49 21 Capillary Refill : Less Than 3 Seconds Results/Procedures Lab Laboratory Tests 10/08/21 06:05 Patient resulted labs reviewed. Assessment/Plan Assessment and Plan Assess & Plan/Chief Complaint Assessment: COVID + Weakness HTN CAD Urinary retention acute Plan: Monitor closely Celestin Home meds 10/06/2021: DC Celestin Bladder meds if needed if retention recurs PT and OT 10/07: Isolation DC tomorrow Check PCT and CXR GELY AMAYA DO Oct 08, 2021 06:01
[2021-10-08 06:23] LABS: BASOPHILS % (AUTO) 0 % (0-10); EOSINOPHILS # (AUTO) 0.2 10^3/uL (0.0-0.3); EOSINOPHILS % (AUTO) 4 % (0-10); HEMATOCRIT 34 % (40-54); HEMOGLOBIN 11.4 g/dL (13.3-17.7); LYMPHOCYTES # (AUTO) 0.8 10^3/uL (1.0-4.0); LYMPHOCYTES % (AUTO) 16 % (12-44); MEAN CORPUSCULAR HEMOGLOBIN 33 pg (25-34); MEAN CORPUSCULAR HGB CONC 33 g/dL (32-36); MEAN CORPUSCULAR VOLUME 98 fL (80-99); MEAN PLATELET VOLUME 10.1 fL (9.0-12.2); MONOCYTES # (AUTO) 0.5 10^3/uL (0.0-1.0); MONOCYTES % (AUTO) 9 % (0-12); NEUTROPHILS # (AUTO) 3.7 10^3/uL (1.8-7.8); NEUTROPHILS % (AUTO) 71 % (42-75); PLATELET COUNT 169 10^3/uL (130-400); WHITE BLOOD COUNT 5.2 10^3/uL (4.3-11.0)
[2021-10-08 06:34] LABS: POTASSIUM 3.6 MMOL/L (3.6-5.0)
[2021-10-08 06:35] LABS: CALCIUM 8.4 MG/DL (8.5-10.1)
[2021-10-08 06:36] LABS: TOTAL PROTEIN 6.2 GM/DL (6.4-8.2)
[2021-10-08 06:38] LABS: BILIRUBIN,TOTAL 0.4 MG/DL (0.1-1.0)
[2021-10-08 06:40] LABS: CREATININE SERUM 0.71 MG/DL (0.60-1.30)
[2021-10-08 07:45] VITALS: BP 138/82
[2021-10-08] MEDS: RT-ALBUTEROL HFA 8.5 GM INHALER IH SCH (08:29)
[2021-10-08] MEDS ORDERED: AZITHROMYCIN 250 MG TAB (ZITHROMAX) PO SCH (09:15)
[2021-10-08] MEDS: DOCUSATE SODIUM 100 MG (COLACE) CAP PO SCH (09:18)
[2021-10-08] MEDS: SENNOSIDES 8.6 MG (SENOKOT) TAB PO SCH (09:19)
[2021-10-08] MEDS: BENZONATATE 100 MG (TESSALON) CAPSULE PO SCH ×2 (09:20→12:04)
[2021-10-08] MEDS: guaiFENesin/DM (ROBITUSSIN DM) 10 ML UDC PO PRN (09:20)
[2021-10-08 11:39] VITALS: BP 138/66
--- NOTE | 2021-10-08 11:58 | Occupational Ther Daily Note ---
OT Current Status-Daily Note Subjective Pt alert, lying in bed. Pt had just finished full shower with nrsg . Mental Status/Objective Patient Orientation: Person, Place, Time, Situation Attachments: IV ADL-Treatment Therapy Code Descriptions/Definitions Functional [place] Measure: 0=Not Assessed/NA 4=Minimal Assistance 1=Total Assistance 5=Supervision or Setup 2=Maximal Assistance 6=Modified [place] 3=Moderate Assistance 7=Complete IndependenceSCALE: Activities may be completed with or without assistive devices. 1-Lsstmyikmh-peivogh completes the activity by him/herself with no assistance from a helper. 5-Set-up or Clean-up Assistance-helper sets up or cleans up; patient completes activity. [place] assists only prior to or following the activity. 4-Supervision or Touching Assistance-helper provides verbal cues and/or touching/steadying and/or contact guard assistance as patient completes activity. Assistance may be provided throughout the activity or intermittently. 3-Partial/Moderate Assistance-helper does LESS THAN HALF the effort. [place] lifts, holds or supports trunk or limbs, but provides less than half the effort. 2-Substantial/Maximal Assistance-helper does MORE THAN HALF the effort. [place] lifts or holds trunk or limbs and provides more than half the effort. 4-Jvwndjpmg-owxegv does ALL the effort. Patient does none of the effort to complete the activity. Or, the assistance of 2 or more helpers is required for the patient to complete the activity. If activity was not attempted, code reason: 7-Patient Refused. 9-Not Applicable-not attempted and the patient did not perform the activity before the current illness, exacerbation or injury. 10-Not Attempted due to Environmental Limitations-(lack of equipment, weather restraints, etc.). 88-Not Attempted due to Medical Conditions or Safety Concerns. Other Treatment Pt completed B UE exercises against gravity. Skilled instructions for correct technique and modifications when necessary. Pt only tolerated 10 reps of 4 exercises, shldr flexion with bicep flexion, internal/ext shldr rotation, modified shldr abd/add, isometric tricep. After session, pt lying in bed with call light/phone in reach. All needs met in room. OT Master Planner Goals Shelter Goals Time Frame: Oct 23, 2021 Oral Hygiene (QC): 5 Toileting Hygiene (QC): 4 Upper Body Dressing (QC): 4 Lower Body Dressing (QC): 4 On/Off Footwear (QC): 3 1=Demonstrate adherence to instructed precautions during ADL tasks. 2=Patient will verbalize/demonstrate understanding of assistive devices/modif ications for ADL. 3=Patient will improve strength/tolerance for activity to enable patient to perform ADL's. OT Education/Plan Problem List/Assessment Assessment: Decreased Activ Tolerance, Decreased UE Strength Discharge Recommendations Plan/Recommendations: Continue POC Treatment Plan/Plan of Care Patient would benefit from OT for education, treatment and training to promote independence in ADL's, mobility, safety and/or upper extremity function for ADL's. Plan of Care: ADL Retraining, Functional Mobility, Group Exercise/Act as Ind, UE Funct Exercise/Act Treatment Duration: Oct 23, 2021 Frequency: 3 times per week (3-5x/week) Estimated Hrs Per Day: .25 hour per day Agreement: Yes Rehab Potential: Fair Time/GCodes Start Time: 10:47 Stop Time: 11:07 Total Time Billed (hr/min): 10 Billed Treatment Time 1 visit-EX 1 (10 min) JACKY MATHEWS Oct 08, 2021 11:58
[2021-10-08 12:36] VITALS: BP 138/66
--- NOTE | 2021-10-08 12:52 | Discharge Summary ---
Diagnosis/Chief Complaint Date of Admission Oct 04, 2021 at 11:59 Date of Discharge Discharge Date: Oct 08, 2021 Discharge Time: 1240 Discharge Diagnosis Assessment: COVID + Weakness HTN CAD Urinary retention acute Plan: Monitor closely [place] Home meds 10/06/2021: DC [place] Bladder meds if needed if retention recurs PT and OT 10/07: Isolation DC tomorrow Check PCT and CXR Discharge Summary Discharge Physical Examination Allergies: Coded Allergies: No Known Drug Allergies (Unverified , 06/15/19) Vitals & I&Os Vital Signs Date Time Temp Pulse Resp B/P (MAP) Pulse Ox O2 Delivery O2 Flow Rate FiO2 10/08/21 14:13 96 Room Air 0.00 10/08/21 12:36 36.8 65 20 138/66 10/07/21 11:49 21 General Appearance: Alert, Oriented X3, Cooperative Respiratory: Clear to Auscultation Cardiovascular: Regular Rate Neuro: Normal Gait, Normal Speech, Strength at 5/5 X4 Ext Psych/Mental Status: Mental Status NL Hospital Course Was the Problem List Reviewed?: Yes Pt had an uneventful hospital course for 5 days after he was admitted for generalized weakness. He was Covid positive. He did start having a cough but no hypoxia. He was placed on Azithromycin 500 mg daily. Labs remain stable. He was still very weak. He required in-patient rehab admission. He will have close follow up after isolation during rehab stay. Labs (last 24 hrs) Laboratory Tests 10/04/21 09:10: White Blood Count 7.0, Red Blood Count 3.67L, Hemoglobin 12.0L, Hematocrit 36L, Mean Corpuscular Volume 99, Mean Corpuscular Hemoglobin 33, Mean Corpuscular Hemoglobin Concent 33, Red Cell Distribution Width 13.9, Platelet Count 172, Mean Platelet Volume 9.8, Immature Granulocyte % (Auto) 0, Neutrophils (%) (Auto) 83H, Lymphocytes (%) (Auto) 6L, Monocytes (%) (Auto) 10, Eosinophils (%) (Auto) 1, Basophils (%) (Auto) 0, Neutrophils # (Auto) 5.8, Lymphocytes # (Auto) 0.4L, Monocytes # (Auto) 0.7, Eosinophils # (Auto) 0.0, Basophils # (Auto) 0.0, Immature Granulocyte # (Auto) 0.0, Neutrophils % (Manual) 86, Lymphocytes % (Manual) 6, Monocytes % (Manual) 6, Eosinophils % (Manual) 2, Blood Morphology Comment NORMAL, Prothrombin Time 14.5, INR Comment 1.1, Activated Partial Thromboplast Time 31, Sodium Level 138, Potassium Level 3.6, Chloride Level 101, Carbon Dioxide Level 25, Anion Gap 12, Blood Urea Nitrogen 17, Creatinine 0.86, Estimat Glomerular Filtration Rate 88, BUN/Creatinine Ratio 20, Glucose Level 105, Lactic Acid Level 1.19, Calcium Level 9.0, Corrected Calcium 9.1, Total Bilirubin 0.7, Aspartate Amino Transf (AST/SGOT) 17, Alanine Aminotransferase (ALT/SGPT) 14, Alkaline Phosphatase 69, Total Creatine Kinase 34, C-Reactive Protein High Sensitivity 1.41H, Total Protein 7.3, Albumin 3.9, Thyroid Stimulating Hormone (TSH) 0.48, Free Thyroxine 1.07 10/04/21 10:50: Urine Color YELLOW, Urine Clarity SL CLOUDY, Urine pH 6.5, Urine Specific [place] 1.020, Urine Protein NEGATIVE, Urine Glucose (UA) NEGATIVE, Urine Ketones NEGATIVE, Urine Nitrite NEGATIVE, Urine Bilirubin NEGATIVE, Urine Urobilinogen 1.0, Urine Leukocyte Esterase NEGATIVE, Urine RBC (Auto) NEGATIVE, Urine RBC NONE, Urine WBC RARE, Urine Squamous Epithelial Cells RARE, Urine Crystals NONE, Urine Bacteria TRACE, Urine Casts NONE, Urine Mucus NEGATIVE, Urine Culture Indicated CULTURE PENDING 10/04/21 11:30: SARS-CoV-2 RNA (RT-PCR) DetectedH 10/05/21 06:05: White Blood Count 8.6, Red Blood Count 3.45L, Hemoglobin 11.2L, Hematocrit 34L, Mean Corpuscular Volume 97, Mean Corpuscular Hemoglobin 33, Mean Corpuscular Hemoglobin Concent 33, Red Cell Distribution Width 14.3, Platelet Count 140, Mean Platelet Volume 9.8, Immature Granulocyte % (Auto) 0, Neutrophils (%) (Auto) 84H, Lymphocytes (%) (Auto) 7L, Monocytes (%) (Auto) 8, Eosinophils (%) (Auto) 0, Basophils (%) (Auto) 0, Neutrophils # (Auto) 7.2, Lymphocytes # (Auto) 0.6L, Monocytes # (Auto) 0.7, Eosinophils # (Auto) 0.0, Basophils # (Auto) 0.0, Immature Granulocyte # (Auto) 0.0, Sodium Level 138, Potassium Level 3.3L, Chloride Level 105, Carbon Dioxide Level 23, Anion Gap 10, Blood Urea Nitrogen 15, Creatinine 0.76, Estimat Glomerular Filtration Rate 91, BUN/Creatinine Ratio 20, Glucose Level 113H, Calcium Level 8.4L, Corrected Calcium 9.0, Total Bilirubin 0.7, Aspartate Amino Transf (AST/SGOT) 19, Alanine Aminotransferase (ALT/SGPT) 16, Alkaline Phosphatase 52, Total Protein 6.3L, Albumin 3.3 10/06/21 06:29: White Blood Count 6.5, Red Blood Count 3.38L, Hemoglobin 11.1L, Hematocrit 33L, Mean Corpuscular Volume 99, Mean Corpuscular Hemoglobin 33, Mean Corpuscular Hemoglobin Concent 33, Red Cell Distribution Width 14.5, Platelet Count 132, Mean Platelet Volume 9.9, Immature Granulocyte % (Auto) 0, Neutrophils (%) (Auto) 81H, Lymphocytes (%) (Auto) 12, Monocytes (%) (Auto) 6, Eosinophils (%) (Auto) 1, Basophils (%) (Auto) 0, Neutrophils # (Auto) 5.2, Lymphocytes # (Auto) 0.7L, Monocytes # (Auto) 0.4, Eosinophils # (Auto) 0.1, Basophils # (Auto) 0.0, Immature Granulocyte # (Auto) 0.0, Sodium Level 139, Potassium Level 3.6, Chloride Level 106, Carbon Dioxide Level 25, Anion Gap 8, Blood Urea Nitrogen 13, Creatinine 0.76, Estimat Glomerular Filtration Rate 91, BUN/Creatinine Ratio 17, Glucose Level 102, Calcium Level 8.1L, Corrected Calcium 8.9, Total Bilirubin 0.5, Aspartate Amino Transf (AST/SGOT) 28, Alanine Aminotransferase (ALT/SGPT) 21, Alkaline Phosphatase 52, Total Protein 6.1L, Albumin 3.0L 10/07/21 06:04: White Blood Count 5.3, Red Blood Count 3.48L, Hemoglobin 11.2L, Hematocrit 34L, Mean Corpuscular Volume 98, Mean Corpuscular Hemoglobin 32, Mean Corpuscular Hemoglobin Concent 33, Red Cell Distribution Width 14.5, Platelet Count 131, Mean Platelet Volume 9.9, Immature Granulocyte % (Auto) 0, Neutrophils (%) (Auto) 77H, Lymphocytes (%) (Auto) 12, Monocytes (%) (Auto) 8, Eosinophils (%) (Auto) 3, Basophils (%) (Auto) 0, Neutrophils # (Auto) 4.1, Lymphocytes # (Auto) 0.6L, Monocytes # (Auto) 0.4, Eosinophils # (Auto) 0.2, Basophils # (Auto) 0.0, Immature Granulocyte # (Auto) 0.0, Sodium Level 141, Potassium Level 3.6, Chloride Level 106, Carbon Dioxide Level 25, Anion Gap 10, Blood Urea Nitrogen 10, Creatinine 0.72, Estimat Glomerular Filtration Rate 92, BUN/Creatinine Ratio 14, Glucose Level 105, Calcium Level 8.3L, Corrected Calcium 9.0, Total Bilirubin 0.4, Aspartate Amino Transf (AST/SGOT) 31, Alanine Aminotransferase (ALT/SGPT) 28, Alkaline Phosphatase 54, Total Protein 6.2L, Albumin 3.1L, Procalcitonin 0.18H 10/08/21 06:05: White Blood Count 5.2, Red Blood Count 3.51L, Hemoglobin 11.4L, Hematocrit 34L, Mean Corpuscular Volume 98, Mean Corpuscular Hemoglobin 33, Mean Corpuscular Hemoglobin Concent 33, Red Cell Distribution Width 14.3, Platelet Count 169, Mean Platelet Volume 10.1, Immature Granulocyte % (Auto) 0, Neutrophils (%) (Auto) 71, Lymphocytes (%) (Auto) 16, Monocytes (%) (Auto) 9, Eosinophils (%) (Auto) 4, Basophils (%) (Auto) 0, Neutrophils # (Auto) 3.7, Lymphocytes # (Auto) 0.8L, Monocytes # (Auto) 0.5, Eosinophils # (Auto) 0.2, Basophils # (Auto) 0.0, Immature Granulocyte # (Auto) 0.0, Sodium Level 142, Potassium Level 3.6, Chloride Level 106, Carbon Dioxide Level 25, Anion Gap 11, Blood Urea Nitrogen 12, Creatinine 0.71, Estimat Glomerular Filtration Rate 93, BUN/Creatinine Ratio 17, Glucose Level 97, Calcium Level 8.4L, Corrected Calcium 9.2, Total Bilirubin 0.4, Aspartate Amino Transf (AST/SGOT) 27, Alanine Aminotransferase (ALT/SGPT) 28, Alkaline Phosphatase 54, Total Protein 6.2L, Albumin 3.0L, Procalcitonin 0.13H Microbiology 10/04/21 Urine Culture - Final, Complete NO GROWTH 10/04/21 Blood Culture - Preliminary, Resulted No growth Pending Labs Microbiology Date/Time Source Procedure Growth Status 10/04/21 10:50 Urine Clean Catch Urine Culture - Final NO GROWTH Complete 10/04/21 09:49 Peripheral Rt Ac Blood Culture - Preliminary No growth Resulted 10/04/21 09:10 Peripheral Left Forearm Blood Culture - Preliminary No growth Resulted Laboratory Tests 10/04/21 09:10: White Blood Count 7.0, Red Blood Count 3.67, Hemoglobin 12.0, Hematocrit 36, Mean Corpuscular Volume 99, Mean Corpuscular Hemoglobin 33, Mean Corpuscular Hemoglobin Concent 33, Red Cell Distribution Width 13.9, Platelet Count 172, Mean Platelet Volume 9.8, Immature Granulocyte % (Auto) 0, Neutrophils (%) (Auto) 83, Lymphocytes (%) (Auto) 6, Monocytes (%) (Auto) 10, Eosinophils (%) (Auto) 1, Basophils (%) (Auto) 0, Neutrophils # (Auto) 5.8, Lymphocytes # (Auto) 0.4, Monocytes # (Auto) 0.7, Eosinophils # (Auto) 0.0, Basophils # (Auto) 0.0, Immature Granulocyte # (Auto) 0.0, Neutrophils % (Manual) 86, Lymphocytes % (Manual) 6, Monocytes % (Manual) 6, Eosinophils % (Manual) 2, Blood Morphology Comment NORMAL, Prothrombin Time 14.5, INR Comment 1.1, Activated Partial Thro mboplast Time 31, Sodium Level 138, Potassium Level 3.6, Chloride Level 101, Carbon Dioxide Level 25, Anion Gap 12, Blood Urea Nitrogen 17, Creatinine 0.86, Estimat Glomerular Filtration Rate 88, BUN/Creatinine Ratio 20, Glucose Level 105, Lactic Acid Level 1.19, Calcium Level 9.0, Corrected Calcium 9.1, Total Bilirubin 0.7, Aspartate Amino Transf (AST/SGOT) 17, Alanine Aminotransferase (ALT/SGPT) 14, Alkaline Phosphatase 69, Total Creatine Kinase 34, C-Reactive Protein High Sensitivity 1.41, Total Protein 7.3, Albumin 3.9, Thyroid Stimulating Hormone (TSH) 0.48, Free Thyroxine 1.07 10/04/21 10:50: Urine Color YELLOW, Urine Clarity SL CLOUDY, Urine pH 6.5, Urine Specific [place] 1.020, Urine Protein NEGATIVE, Urine Glucose (UA) NEGATIVE, Urine Ketones NEGATIVE, Urine Nitrite NEGATIVE, Urine Bilirubin NEGATIVE, Urine Urobilinogen 1.0, Urine Leukocyte Esterase NEGATIVE, Urine RBC (Auto) NEGATIVE, Urine RBC NONE, Urine WBC RARE, Urine Squamous Epithelial Cells RARE, Urine Crystals NONE, Urine Bacteria TRACE, Urine Casts NONE, Urine Mucus NEGATIVE, Urine Culture Indicated CULTURE PENDING 10/04/21 11:30: SARS-CoV-2 RNA (RT-PCR) Detected 10/05/21 06:05: White Blood Count 8.6, Red Blood Count 3.45, Hemoglobin 11.2, Hematocrit 34, Mean Corpuscular Volume 97, Mean Corpuscular Hemoglobin 33, Mean Corpuscular Hemoglobin Concent 33, Red Cell Distribution Width 14.3, Platelet Count 140, Mean Platelet Volume 9.8, Immature Granulocyte % (Auto) 0, Neutrophils (%) (A uto) 84, Lymphocytes (%) (Auto) 7, Monocytes (%) (Auto) 8, Eosinophils (%) (Auto) 0, Basophils (%) (Auto) 0, Neutrophils # (Auto) 7.2, Lymphocytes # (Auto) 0.6, Monocytes # (Auto) 0.7, Eosinophils # (Auto) 0.0, Basophils # (Auto) 0.0, Immature Granulocyte # (Auto) 0.0, Sodium Level 138, Potassium Level 3.3, Chloride Level 105, Carbon Dioxide Level 23, Anion Gap 10, Blood Urea Nitrogen 15, Creatinine 0.76, Estimat Glomerular Filtration Rate 91, BUN/Creatinine Ratio 20, Glucose Level 113, Calcium Level 8.4, Corrected Calcium 9.0, Total Bilirubin 0.7, Aspartate Amino Transf (AST/SGOT) 19, Alanine Aminotransferase (ALT/SGPT) 16, Alkaline Phosphatase 52, Total Protein 6.3, Albumin 3.3 10/06/21 06:29: White Blood Count 6.5, Red Blood Count 3.38, Hemoglobin 11.1, Hematocrit 33, Mean Corpuscular Volume 99, Mean Corpuscular Hemoglobin 33, Mean Corpuscular Hemoglobin Concent 33, Red Cell Distribution Width 14.5, Platelet Count 132, Mean Platelet Volume 9.9, Immature Granulocyte % (Auto) 0, Neutrophils (%) (Auto) 81, Lymphocytes (%) (Auto) 12, Monocytes (%) (Auto) 6, Eosinophils (%) (Auto) 1, Basophils (%) (Auto) 0, Neutrophils # (Auto) 5.2, Lymphocytes # (Auto) 0.7, Monocytes # (Auto) 0.4, Eosinophils # (Auto) 0.1, Basophils # (Auto) 0.0, Immature Granulocyte # (Auto) 0.0, Sodium Level 139, Potassium Level 3.6, Chloride Level 106, Carbon Dioxide Level 25, Anion Gap 8, Blood Urea Nitrogen 13, Creatinine 0.76, Estimat Glomerular Filtration Rate 91, BUN/Creatinine Ratio 17, Glucose Level 102, Calcium Level 8.1, Corrected Calcium 8.9, Total Bilirubin 0.5, Aspartate Amino Transf (AST/SGOT) 28, Alanine Aminotransferase (ALT/SGPT) 2 1, Alkaline Phosphatase 52, Total Protein 6.1, Albumin 3.0 10/07/21 06:04: White Blood Count 5.3, Red Blood Count 3.48, Hemoglobin 11.2, Hematocrit 34, Mean Corpuscular Volume 98, Mean Corpuscular Hemoglobin 32, Mean Corpuscular Hemoglobin Concent 33, Red Cell Distribution Width 14.5, Platelet Count 131, Mean Platelet Volume 9.9, Immature Granulocyte % (Auto) 0, Neutrophils (%) (Auto) 77, Lymphocytes (%) (Auto) 12, Monocytes (%) (Auto) 8, Eosinophils (%) (Auto) 3, Basophils (%) (Auto) 0, Neutrophils # (Auto) 4.1, Lymphocytes # (Auto) 0.6, Monocytes # (Auto) 0.4, Eosinophils # (Auto) 0.2, Basophils # (Auto) 0.0, Immature Granulocyte # (Auto) 0.0, Sodium Level 141, Potassium Level 3.6, Chloride Level 106, Carbon Dioxide Level 25, Anion Gap 10, Blood Urea Nitrogen 10, Creatinine 0.72, Estimat Glomerular Filtration Rate 92, BUN/Creatinine Ratio 14, Glucose Level 105, Calcium Level 8.3, Corrected Calcium 9.0, Total Bilirubin 0.4, Aspartate Amino Transf (AST/SGOT) 31, Alanine Aminotransferase (ALT/SGPT) 28, Alkaline Phosphatase 54, Total Protein 6.2, Albumin 3.1, Procalcitonin 0.18 10/08/21 06:05: White Blood Count 5.2, Red Blood Count 3.51, Hemoglobin 11.4, Hematocrit 34, Mean Corpuscular Volume 98, Mean Corpuscular Hemoglobin 33, Mean Corpuscular Hemoglobin Concent 33, Red Cell Distribution Width 14.3, Platelet Count 169, Mean Platelet Volume 10.1, Immature Granulocyte % (Auto) 0, Neutrophils (%) (Auto) 71, Lymphocytes (%) (Auto) 16, Monocytes (%) (Auto) 9, Eosinophils (%) (Auto) 4, Basophils (%) (Auto) 0, Neutrophils # (Auto) 3.7, Lymphocytes # (Auto) 0.8, Monocytes # (Auto) 0.5, Eosinophils # (Auto) 0.2, Basophils # (Auto) 0.0, Immature Granulocyte # (Auto) 0.0, Sodium Level 142, Potassium Level 3.6, Chloride Level 106, Carbon Dioxide Level 25, Anion Gap 11, Blood Urea Nitrogen 12, Creatinine 0.71, Estimat Glomerular Filtration Rate 93, BUN/Creatinine Ratio 17, Glucose Level 97, Calcium Level 8.4, Corrected Calcium 9.2, Total Bilirubin 0.4, Aspartate Amino Transf (AST/SGOT) 27, Alanine Aminotransferase (ALT/SGPT) 28, Alkaline Phosphatase 54, Total Protein 6.2, Albumin 3.0, Procalcitonin 0.13 Discharge Home Medications: Active Scripts Active Reported Ocuvite Adult 50 Plus Softgel (C,E,Zinc,Copper 11/Ienfn9d/Lut) 250 Mg (90 Mg-160 Mg)-5 Mg-1 Mg Capsule 1 Each PO DAILY Vitamin D3 (Cholecalciferol (Vitamin D3)) 125 Mcg (5000 Unit) Tablet 125 Mcg PO DAILY Zinc (Zinc Amino Acid Chelate) 50 Mg Tablet 50 Mg PO DAILY Euthyrox (Levothyroxine Sodium) 200 Mcg Tablet 200 Mcg PO DAILY Prasugrel HCl 10 Mg Tablet 10 Mg PO DAILY Colace (Docusate Sodium) 100 Mg Capsule 100 Mg PO DAILY PRN Lipitor (Atorvastatin Calcium) 20 Mg Tablet 20 Mg PO DAILY Oxybutynin Chloride 5 Mg Tablet 5 Mg PO BID Vitamin B12 (Cyanocobalamin (Vitamin B-12)) 5,000 Mcg Tab.rapdis 5,000 Mcg PO DAILY Vitamin C (Ascorbate Calcium) 500 Mg Tablet 500 Mg PO DAILY Instructions to patient/family Please see electronic discharge instructions given to patient. GELY AMAYA DO Oct 08, 2021 12:52
== END 2021-10-08 12:38 ==
LOC: EDUNIT# 08:31 → ER 08:33 → 4TH 11:59 → UNDOADMOB 11:59 → 4TH 12:24 → UNDODISOB 10-08 13:16
PROVIDERS: ADMIT Internal Medicine; ATTEND Internal Medicine
DX: U07.1 COVID-19 (principal); I10 Essential (primary) hypertension; I25.10 Atherosclerotic heart disease of native coronary artery without angina pectoris; R33.9 Retention of urine, unspecified; Z79.82 Long term (current) use of aspirin; Z87.891 Personal history of nicotine dependence
CPT/HCPCS: 71045 ×2; 80053 ×5; 81000; 82550; 83605; 84145 ×2; 84439; 84443; 85007; 85025 ×4; 85027; 85610; 85730; 86141; 87040; 87088; 87636; 94640 ×5; 94664; 94760; 96361 ×3; 96372 ×4; 97110; 97162; 97166; 97530; 97535; 99284; G0378; 36415

== ENCOUNTER 2021-10-08 11:25 | Inpatient (IN) | payer MEDICARE, OTHER ==
[~2021-10-08] VITALS: Ht 177 cm; Wt 121.4 kg
[~2021-10-08 11:25] MED LIST changes: +C,E,1CAP PO; +CALC-250 PO; +LEVO200T62 PO; +PRAS10TA10 PO; +ZINC50TA51 PO
--- NOTE | 2021-10-08 12:55 | PM&R Post Admission Assessment ---
PM&R Date of Visit: Oct 08, 2021 Time of Visit: 14:00 History of Present Illness CC: Covid related weakness HPI: This is an 81 yr old WM who presented to the ER with severe weakness. He was found to have Covid-19 but no hypoxia. He was placed in isolation and required supportive care. Celestin catheter discontinued, now voiding well. Bowels returned back to normal. Cough is much improved. Azithromycin started for bronchial infection related to Covid-19 viral pneumonia. He was deemed stable for transfer to in-patient rehab. Past Frcxcqv-Owcblx-Auwrve Hx Past Med/Social Hx: Reviewed Nursing Past Med/Soc Hx, Reviewed and Corrections made Patient Social History Marrital Status: Employed/Student: retired Alcohol Use: Denies Use Smoking Status: Former Smoker 2nd Hand Smoke Exposure: No Immunizations Up To Date Tetanus Booster (TDap): Less than 5yrs Date of Pneumonia Vaccine: Feb 19, 2017 Date of Influenza Vaccine: Mar 15, 2019 Past Medical History Surgeries: Gallbladder Currently Using CPAP: No Currently Using BIPAP: No Cardiac: Coronary Artery Disease, Heart Attack, Hypertension Gastrointestinal: Hiatal Hernia PM&R Allergy/Meds/Data Review Allergies Coded Allergies: No Known Drug Allergies (Unverified , 06/15/19) Home Medications Scheduled Ascorbate Calcium (Vitamin C), 500 MG PO DAILY, (Reported) Atorvastatin Calcium (Lipitor), 20 MG PO DAILY, (Reported) C,E,Zinc,Copper 11/Wvnkh9l/Lut (Ocuvite Adult 50 Plus Softgel), 1 EACH PO DAILY, (Reported) Cholecalciferol (Vitamin D3) (Vitamin D3), 125 MCG PO DAILY, (Reported) Cyanocobalamin (Vitamin B-12) (Vitamin B12), 5,000 MCG PO DAILY, (Reported) Levothyroxine Sodium (Euthyrox), 200 MCG PO DAILY, (Reported) Oxybutynin Chloride (Oxybutynin Chloride), 5 MG PO BID, (Reported) Prasugrel HCl (Prasugrel HCl), 10 MG PO DAILY, (Reported) Zinc Amino Acid Chelate (Zinc), 50 MG PO DAILY, (Reported) Scheduled PRN Docusate Sodium (Colace), 100 MG PO DAILY PRN for CONSTIPATION-1ST LINE, (Reported) Discontinued Medications Atenolol (Atenolol), 25 MG PO DAILY, (Reported) Discontinued Reason: No Longer Taking Levothyroxine Sodium (Levothyroxine Sodium), 175 MCG PO DAILY, (Reported) Discontinued Reason: New Order Lisinopril (Lisinopril), 10 MG PO DAILY, (Reported) Discontinued Reason: No Longer Taking Multivitamin (Once Daily), 1 TAB PO DAILY, (Reported) Discontinued Reason: No Longer Taking Current Medications Current Medications Reviewed Review of Systems Constitutional: see HPI, weakness EENTM: no symptoms reported Respiratory: cough, dyspnea on exertion Cardiovascular: no symptoms reported Gastrointestinal: no symptoms reported Genitourinary: no symptoms reported Musculoskeletal: no symptoms reported Skin: no symptoms reported Psychiatric/Neurological: No Symptoms Reported All Other Systems Reviewed Negative Unless Noted: Yes Physical Exam Physical Exam Vital Signs Capillary Refill : Height, Weight, BMI Height: '" Weight: lbs. oz. kg; 38.40 BMI Method:Estimated General Appearance: No Apparent Distress, WD/WN, Chronically ill Eyes: Bilateral Eye Normal Inspection, Bilateral Eye PERRL HEENT: PERRL/EOMI, Normal ENT Inspection, Pharynx Normal Neck: Full Range of Motion, Normal Inspection, Non Tender, Supple, Carotid Bruit Respiratory: Chest Non Tender, Lungs Clear, Normal Breath Sounds, No Accessory Muscle Use, No Respiratory Distress, Decreased Breath Sounds Cardiovascular: Regular Rate, Rhythm, No Edema, No Gallop, No JVD, No Murmur, Normal Peripheral Pulses Gastrointestinal: Normal Bowel Sounds, No Organomegaly, No Pulsatile Mass, Non Tender, Soft Back: Normal Inspection, No CVA Tenderness, No Vertebral Tenderness Extremity: Normal Capillary Refill, Normal Inspection, Normal Range of Motion, Non Tender, No Calf Tenderness, No Pedal Edema Neurologic/Psychiatric: Alert, Oriented x3, No Motor/Sensory Deficits, Normal Mood/Affect, Motor Weakness (generalized all ext) Skin: Normal Color, Warm/Dry Lymphatic: No Adenopathy PM&R Medical Assessment & Plan REHAB/MEDICAL ASSESSMENT AND PLAN: REHAB IMPAIRMENT GROUP: COVID myopathy ETIOLOGIC DIAGNOSIS: COVID The comorbidities that impact the patients function and/or functional outcome by: advanced age, CAD, Recent urinary retention, COVID REHAB PLAN: The patient is being admitted to our comprehensive inpatient rehabilitation facility and can tolerate the intensity of service consisting of at least: 180 minutes of therapy a day, 5 out of 7 days a week Rehab treatment will consist of: PT OT will focus on regaining function in order to return to independent living following COVID illness The patient/family has a good understanding of our discharge process and will benefit from an interdisciplinary inpatient rehabilitation program. The patient has potential to make improvement and is in need of at least two of the following multidisciplinary therapies including but not limited to physical, occupational, speech, and prosthetics and orthotics. Additionally the patient will need services from respiratory, nutritional services, wound care, psychology, etc. (Customize this to each patient). Given the patients complex condition and risk of further medical complications, rehabilitation services cannot be safely or effectively provided at a lower level of care such as a half-way facility. BARRIERS TO DISCHARGE: COVID weakness ESTIMATED LOS: 7 days DISPOSITION: Home RELEVANT CHANGES SINCE PREADMISSION SCREENING: I have compared the patients medical and functional status at the time of the preadmission screening and there are: no changes PROGNOSIS: Good REHABILITATION GOALS: 1.PT OT will focus on regaining function in order to return to independent living following COVID illness All the above goals were reviewed with the patient and he/she is in agreement. By signing this document, I acknowledge that I have personally performed a full physical examination on this patient within 24 hours of admission to this inpatient rehabilitation facility and have determined the patient to be able to tolerate the above course of treatment at an intensive level for a reasonable period of time. I will be completing a detailed individualized Plan of Care for this patient by day #4 of the patients stay based upon the Preadmission Screen, the Post-Admission Evaluation, and the therapy evaluations. Admission Dx/Comorbidities: (1) COVID-19 ICD Codes: U07.1 - COVID-19 (2) Generalized weakness ICD Codes: R53.1 - Weakness (3) Weakness ICD Codes: R53.1 - Weakness Assessment/Plan Assessment and Plan Assess & Plan/Chief Complaint Assessment: COVID 19 weakness Cough Bacterial bronchitis s/p urinary retention CAD HLP HTN Plan: Rehab protocol Azithromycin IS GELY AMAYA DO Oct 08, 2021 12:55
[2021-10-08] MEDS ORDERED: BISACODYL 10 MG SUPP (DULCOLAX) PR PRN (13:00)
[2021-10-08] MEDS ORDERED: DOCUSATE SODIUM 100 MG (COLACE) CAP PO PRN ×2 (13:00→20:00)
[2021-10-08] MEDS ORDERED: LOPERAMIDE 2 MG (IMODIUM) TABLET PO PRN (13:00)
[2021-10-08] MEDS ORDERED: ONDANSETRON 4 MG (ZOFRAN) ORAL DISSOLVE TAB PO PRN (13:00)
[2021-10-08] MEDS ORDERED: ALPRAZolam 0.25 MG (XANAX) TAB PO PRN (13:00)
[2021-10-08] MEDS ORDERED: CALCIUM CARBONATE 500 MG (TUMS) TAB.CHEW PO PRN (13:00)
[2021-10-08] MEDS ORDERED: MELATONIN 3 MG TABLET PO PRN (13:00)
[2021-10-08] MEDS ORDERED: diphenhydrAMINE 25 MG TAB (BENADRYL) PO PRN (13:00)
[2021-10-08] MEDS ORDERED: FLEET ENEMA ADULT 1 EA BTL PR PRN (13:00)
--- NOTE | 2021-10-08 13:59 | Occupational Therapy Eval ---
OT Evaluation-General/PLF Medical Diagnosis Admission Date Oct 08, 2021 at 13:19 Medical Diagnosis: covid 19, debility Onset Date: Oct 04, 2021 Therapy Diagnosis Therapy Diagnosis: reduced endurance, adl status Precautions Precautions/Isolations: Contact Isolation, Droplet Isolation, Fall Prevention Referral Physician: Brynn Bryant Reason: Evaluation/Treatment Medical History Pertinent Medical History: CAD, HTN Current History pt presents to ER with weakness and fever. Found to be positive for Covid 19. Per patient he lives with his in a single story home. He was indep with adls and shares iadl responsibilities with his . He uses a cane at baseline. Reviewed History: Yes Social History Home: Single Level Current Living Status: Spouse Entry Into Home: Stairs With Railing Steps Into Home: 3 ADL-Prior Level of Function SCALE: Activities may be completed with or without assistive devices. 2-Epoadzmvlj-klunrmi completes the activity by him/herself with no assistance from a helper. 5-Set-up or Clean-up Assistance-helper sets up or cleans up; patient completes activity. [place] assists only prior to or following the activity. 4-Supervision or Touching Assistance-helper provides verbal cues and/or touching/steadying and/or contact guard assistance as patient completes activity. Assistance may be provided throughout the activity or intermittently. 3-Partial/Moderate Assistance-helper does LESS THAN HALF the effort. Shanks lifts, holds or supports trunk or limbs, but provides less than half the effort. 2-Substantial/Maximal Assistance-helper does MORE THAN HALF the effort. Shanks lifts or holds trunk or limbs and provides more than half the effort. 8-Suwugxhsv-nmqlxj does ALL the effort. Patient does none of the effort to complete the activity. Or, the assistance of 2 or more helpers is required for the patient to complete the activity. If activity was not attempted, code reason: 7-Patient Refused. 9-Not Applicable-not attempted and the patient did not perform the activity before the current illness, exacerbation or injury. 10-Not Attempted due to Environmental Limitations-(lack of equipment, weather restraints, etc.). 88-Not Attempted due to Medical Conditions or Safety Concerns. Self Care: Independent Functional Cognition: Independent DME/Equipment: Shower Drive Self: Yes OT Current Status Subjective Pt reports mild discomfort in abdomen, possibly related to coughing. Co-treat with PT for part of session secondary to weakness, poor activity tolerance, and need of 2 skilled clinicians to progress indep and safety with adls and mobility Appearance Pt left standing in room with physical therapy and RIVERA present Mental Status/Objective Patient Orientation: Person, Place, Situation Attachments: IV Current Glasses/Contacts: Yes Dentures/Partials: Yes (partial ) Upper Extremity ROM impaired. L shoulder ~150 degrees AROM, R shoulder ~100 degrees AROM Elbow-distally WNL Upper Extremity Strength Bilateral shoulder 3-/5 bilateral elbows: 3+/5 bilateral senior marketing specialist: fair ADL-Treatment Eating (QC): 5 Oral Hygiene (QC): 4 Shower/Bathe Self (QC): 7 (Pt reports he already completed a shower today with nursing assist.) Upper Body Dressing (QC): 10 Lower Body Dressing (QC): 4 On/Off Footwear (QC): 4 Toileting Hygiene (QC): 4 Supine>sit with Min a to elevate torso. Extra time and cues for improved performance. Initially unsteady at EOB but quickly improves post cues for posture and having feet supported on floor. Extra time to reach feet in order to don bilateral socks and don underwear over feet but no physical assistance requ ired. He stood with SBA, extra time to come to full upright. He was able to remove BUE support in order to manage clothing up to waist with CGA for safety. No clean clothing available to assess UB dressing at this time. Pt ambulated within room (due to being in isolation) several times with SBA and use of walker. Shuffle type gait with flexed posture, cues to correct. Poor carry over throughout session. Pt stood at mirror to perform reaching task with 0-1 UE support. Focus on improving balance, UE ROM, and endurance needed for functional tasks. Pt able to rise onto toes without LOB but does exhibit some fatigue at end of activity. Due to impaired shoulder ROM, pt only able to reach slightly overhead. Minimal improvement in reach with assist from therapist under elbow. Toilet transfer x6 with goal to promote increased LE strength and endurance. Pt does require use of grab bar to stand. Short breaks during activity secondary to coughing spells. Pt left with RIVERA to take over treatment. Education OT Patient Education: Correct positioning, Disease process, Modified ADL techniques, Progress toward Goal/Update tx plan, Purpose of tx/functional activities, Rehab process, Safety issues, Transfer techniques Teaching Recipient: Patient Teaching Methods: Demonstration, Discussion Response to Teaching: Verbalize Understanding, Return Demonstration, Reinforcement Needed OT Short Term Goals Short Term Goals Time Frame: Oct 15, 2021 Eatin Oral hygiene: 5 Toileting hygiene: 6 Shower/bathe self: 4 Upper body dressin Lower body dressin Putting on/taking off footwear: 5 OT Retirement Goals Retirement Goals Time Frame: Oct 21, 2021 Eating (QC): 6 Oral Hygiene (QC): 6 Toileting Hygiene (QC): 6 Shower/Bathe Self (QC): 5 Upper Body Dressing (QC): 6 Lower Body Dressing (QC): 6 On/Off Footwear (QC): 6 1=Demonstrate adherence to instructed precautions during ADL tasks. 2=Patient will verbalize/demonstrate understanding of assistive devices/modifications for ADL. 3=Patient will improve strength/tolerance for activity to enable patient to per form ADL's. OT Education/Plan Problem List/Assessment Assessment: Decreased Activ Tolerance, Decreased Safety Aware, Decreased UE Strength, Impaired Bed Mobility, Impaired Cognition, Impaired Funct Balance, Imp aired I ADL's, Impaired Self-Care Skills, Restricted Funct UE ROM Discharge Recommendations Plan/Recommendations: Continue POC Therapy Discharge Recommendati: Post Acute OT (Home health OT) Treatment Plan/Plan of Care Treatment,Training & Education: Yes Patient would benefit from OT for education, treatment and training to promote independence in ADL's, mobility, safety and/or upper extremity function for ADL's. Plan of Care: ADL Retraining, Cognitive Retraining, Functional Mobility, Group Exercise/Act as Ind, UE Funct Exercise/Act Treatment Duration: Oct 21, 2021 Frequency: At least 5 of 7 days/Wk (IRF) Estimated Hrs Per Day: 1.5 hours per day (75-90 min/day ) Agreement: Yes Rehab Potential: Fair Time/GCodes Start Time: 13:10 Stop Time: 13:50 Total Time Billed (hr/min): 40 Billed Treatment Time 1 visit EVM (10 min) ADL x2 (30 min) Gabby Burkett OT Oct 08, 2021 13:58
--- NOTE | 2021-10-08 14:43 | Physical Therapy Evaluation ---
PT Evaluation-General Medical Diagnosis Admission Date Oct 08, 2021 at 13:19 Medical Diagnosis: covid 19, debility Onset Date: Oct 04, 2021 Therapy Diagnosis Therapy Diagnosis: impaired mobility, strength Precautions Precautions/Isolations: Contact Isolation, Droplet Isolation, Fall Prevention Referral Physician: Merna Swain DO Reason for Referral: Evaluation/Treatment Medical History Pertinent Medical History: CAD, HTN Reviewed History: Yes Social History Home: Single Level Current Living Status: Spouse Entry Into Home: Stairs With Railing PT Steps Into Home: 3 Prior Prior Level of Function SCALE: Activities may be completed with or without assistive devices. 0-Cpjclzimpv-ttlsdli completes the activity by him/herself with no assistance from a helper. 5-Set-up or Clean-up Assistance-helper sets up or cleans up; patient completes activity. [place] assists only prior to or following the activity. 4-Supervision or Touching Assistance-helper provides verbal cues and/or touchin g/steadying and/or contact guard assistance as patient completes activity. Assistance may be provided throughout the activity or intermittently. 3-Partial/Moderate Assistance-helper does LESS THAN HALF the effort. [place] lifts, holds or supports trunk or limbs, but provides less than half the effort. 2-Substantial/Maximal Assistance-helper does MORE THAN HALF the effort. [place] lifts or holds trunk or limbs and provides more than half the effort. 6-Uonknmcme-hywafs does ALL the effort. Patient does none of the effort to complete the activity. Or, the assistance of 2 or more helpers is required for the patient to complete the activity. If activity was not attempted, code reason: 7-Patient Refused. 9-Not Applicable-not attempted and the patient did not perform the activity before the current illness, exacerbation or injury. 10-Not Attempted due to Environmental Limitations-(lack of equipment, weather restraints, etc.). 88-Not Attempted due to Medical Conditions or Safety Concerns. Bed Mobility: 6 Transfers (B,C,W/C): 6 Gait: 6 Stairs: 6 Indoor Mobility (Ambulation): Independent Stairs: Independent has 4 wheeled walker PT Evaluation-Current Subjective Patient in bed pre tx, agrees to PT, has no pain at rest but has some right hip pain with activity. Will be co-treating with OT for part of tx due to poor patient mobility, still in isolation, strength, endurance, coordinate UE and LE during activity, safety and reduce risk of falls. Pt/Family Goals to be independent at home Objective Patient Orientation: Person, Place, Situation ROM/Strength ROM Lower Extremities slightly limited knee extension bilaterally, has bilateral TKA Strength Lower Extremities LLE (hip flexion 3/5, knee flexion 3+/5, knee extension 4/5, dorsiflexion 4/5), RLE (hip flexion 3+/5, knee flexion 3+/5, knee extension 4/5, dorsiflexion 4/5) Sensory Vision: Wears Glasses Hearing: Functional Sensation Right Lower Extremit: Intact Sensation Left Lower Extremity: Intact Transfers Roll Left & Right (QC): 6 Sit to Lying (QC): 3 Lying to Sitting/Side of Bed(Q: 3 Sit to Stand (QC): 4 Chair/Fya-ut-Kzkno Xfer(QC): 4 Toilet Transfer (QC): 4 Car Transfer (QC): 88 Patient can perform rolling with independence, supine <-> sit min assist, sit <- > stand CGA, transfers SBA. Patient needs occasional cues for positioning. Gait Does the Patient Walk?: Yes Mode of Locomotion: Walk Anticipated Mode of Locomotion: Walk Walk 10 feet (QC): 4 Walk 50 ft with 2 Turns(QC): 4 Walk 150 ft (QC): 4 Walking 10ft/uneven surface-QC: 88 Distance: 300', 20' Gait Assistive Device: FWW Comments/Gait Description Patient can ambulate 300' with a rolling walker with SBA (including 50' with at least 2 turns of 90 degrees). Ambulation is very slow and he shuffles, he can take bigger steps with cues, steady ambulation Wheelchair Training Wheel 50 ft with 2 turns (QC): 9 Wheel 150 ft (QC): 9 Stairs 1 Step (curb) (QC): 88 4 Steps (QC): 88 12 Steps (QC): 88 Balance Sitting Static: Normal Sitting Dynamic: Normal Standing Static: Normal Standing Dynamic: Good Picking up an Object (QC): 4 (SBA with interactive producer) Treatment PT performed bed mobility and transfers, ambulation, LAQ alternating for 5 min, standing heel raises x15 and mini-squats x15, standing and safety during UE reaching activity and bed making activity, OT performed dressing, toileting, UE activity and bed making activity. Assessment/Needs Patient in bed post tx with nurse call, phone, tray, all needs met. Patient has impaired mobility and strength. He needs some assist with supine <-> sit. Rehab Potential: Fair PT Short Term Goals Short Term Goals Time Frame: Oct 15, 2021 Roll Left & Right: 6 Sit to lyin (SBA) Lying to sitting on side of be: 4 (SBA) Sit to stand: 4 (SBA) Chair/kug-px-ysrct transfer: 5 Walk 10 feet: 5 Walk 50 feet with two turns: 5 Walk 150 feet: 5 PT Consumer Recruiter Goals Care Home Goals PT Consumer Recruiter Goals Time Frame: Oct 29, 2021 Roll Left & Right (QC): 6 Sit to Lying (QC): 6 Lying-Sitting on Side/Bed(QC): 6 Sit to Stand (QC): 6 Chair/Lgr-rc-Cxqsr Xfer(QC): 6 Toilet Transfer (QC): 6 Car Transfer (QC): 6 Does the Patient Walk: Yes Walk 10 feet (QC): 6 Walk 50ft with 2 Turns (QC): 6 Walk 150 ft (QC): 6 Walking 10ft on Uneven Surface: 6 1 Step (curb) (QC): 6 4 Steps (QC): 6 12 Steps (QC): 6 Picking up an Object (QC): 6 Wheel 50 feet with 2 turns (QC: 9 Wheel 150 feet: 9 PT Plan Problem List Problem List: Activity Tolerance, Functional Strength, Safety, Balance, Gait, Transfer, Bed Mobility, ROM Treatment/Plan Treatment Plan: Continue Plan of Care Treatment Plan: Bed Mobility, Education, Functional Activity Cari, Functional Strength, Group Therapy, Gait, Safety, Therapeutic Exercise, Transfers Treatment Duration: Oct 29, 2021 Frequency: At least 5 of 7 days/Wk (IRF) Estimated Hrs Per Day: 1.5 hours per day Patient and/or Family Agrees t: Yes Safety Risks/Education Patient Education: Gait Training, Transfer Techniques, Correct Positioning, Safety Issues Teaching Recipient: Patient Teaching Methods: Demonstration, Discussion Response to Teaching: Reinforcement Needed Discharge Recommendations Plan Patient will perform bed mobility and transfer training, balance and endurance training, functional strengthening, stair training, gait training, and education, to improve functional mobility and independence at home. Therapy Discharge Recommendati: Home & Family, Post Acute PT Time/GCodes Time In: 1300 Time Out: 1440 Total Billed Treatment Time: 90 Total Billed Treatment 1 visit EVM 10' EX 30' FA 50' PT eval from [id number], OT eval from [id number], co-treat from [id number] SAEID ARELLANO PT Oct 08, 2021 14:43
--- NOTE | 2021-10-08 14:44 | Occupational Ther Daily Note ---
OT Current Status-Daily Note Subjective Took over care from OTR/L. Pt alert and oriented x4. Mental Status/Objective Patient Orientation: Person, Place, Time, Situation Attachments: IV ADL-Treatment Pt stood at toilet to urinate independently, ambulated over to sink to wash hands independently. Pt able to doff socks independently. Therapy Code Descriptions/Definitions Functional [place] Measure: 0=Not Assessed/NA 4=Minimal Assistance 1=Total Assistance 5=Supervision or Setup 2=Maximal Assistance 6=Modified [place] 3=Moderate Assistance 7=Complete IndependenceSCALE: Activities may be completed with or without assistive devices. 2-Xcdlcovuwh-mqxorem completes the activity by him/herself with no assistance from a helper. 5-Set-up or Clean-up Assistance-helper sets up or cleans up; patient completes activity. [place] assists only prior to or following the activity. 4-Supervision or Touching Assistance-helper provides verbal cues and/or touching/steadying and/or contact guard assistance as patient completes activity. Assistance may be provided throughout the activity or intermittently. 3-Partial/Moderate Assistance-helper does LESS THAN HALF the effort. [place] lifts, holds or supports trunk or limbs, but provides less than half the effort. 2-Substantial/Maximal Assistance-helper does MORE THAN HALF the effort. [place] lifts or holds trunk or limbs and provides more than half the effort. 3-Lxjozqjzg-wxsbbt does ALL the effort. Patient does none of the effort to complete the activity. Or, the assistance of 2 or more helpers is required for the patient to complete the activity. If activity was not attempted, code reason: 7-Patient Refused. 9-Not Applicable-not attempted and the patient did not perform the activity before the current illness, exacerbation or injury. 10-Not Attempted due to Environmental Limitations-(lack of equipment, weather restraints, etc.). 88-Not Attempted due to Medical Conditions or Safety Concerns. On/Off Footwear: 5 Other Treatment Co-treat with PT [id number], skills of 2 clinicians required to decrease fall risk, increase activity tolerance and mobility for all functional tasks. PT focusing on ambulation, transfers and B LE strengthening while OT focusing on functional mobility, ADLs and IADLs, B UE strengthening. Pt given medium resistance theraband for use in room. Skilled instruction for correct technique and modifications when needed. Pt able to complete 4 B UE exercises 1 set 10 reps of each with recovery break between each set. Pt then ambulated and straighten bed linens using bed to stabilize self while bending and using B UE to tuck in fitted sheet, no LOB noted. Pt required min A supine <--> EOB and assist to scoot up in bed. After session, pt sitting in recliner with call light/phone in reach. All needs met in room. OT Short Term Goals Short Term Goals Time Frame: Oct 15, 2021 Eatin Oral hygiene: 5 Toileting hygiene: 6 Shower/bathe self: 4 Upper body dressin Lower body dressin Putting on/taking off footwear: 5 OT Senior Care Goals Senior Care Goals Time Frame: Oct 21, 2021 Eating (QC): 6 Oral Hygiene (QC): 6 Toileting Hygiene (QC): 6 Shower/Bathe Self (QC): 5 Upper Body Dressing (QC): 6 Lower Body Dressing (QC): 6 On/Off Footwear (QC): 6 1=Demonstrate adherence to instructed precautions during ADL tasks. 2=Patient will verbalize/demonstrate understanding of assistive devices/modifications for ADL. 3=Patient will improve strength/tolerance for activity to enable patient to perform ADL's. OT Education/Plan Problem List/Assessment Assessment: Decreased Activ Tolerance, Decreased UE Strength, Impaired Bed Mobility, Impaired Self-Care Skills Discharge Recommendations Plan/Recommendations: Continue POC Treatment Plan/Plan of Care Patient would benefit from OT for education, treatment and training to promote independence in ADL's, mobility, safety and/or upper extremity function for ADL's. Plan of Care: ADL Retraining, Cognitive Retraining, Functional Mobility, Group Exercise/Act as Ind, UE Funct Exercise/Act Treatment Duration: Oct 21, 2021 Frequency: At least 5 of 7 days/Wk (IRF) Estimated Hrs Per Day: 1.5 hours per day (75-90 min/day ) Agreement: Yes Rehab Potential: Fair Time/GCodes Start Time: 13:50 Stop Time: 14:40 Total Time Billed (hr/min): 50 Billed Treatment Time 1 visit-FA 2 (35 min) EX 1 (15 min) co-treat with PT 50 min JACKY MATHEWS Oct 08, 2021 14:44
[2021-10-08] MEDS: ENOXAPARIN 40 MG/0.4 ML (LOVENOX) SYR SC SCH (15:27)
[2021-10-08 19:46] VITALS: BP 145/73
[2021-10-08] MEDS: OXYBUTYNIN (DITROPAN) 5 MG TAB PO SCH (21:54)
[2021-10-08] MEDS: AZITHROMYCIN 250 MG TAB (ZITHROMAX) PO SCH (21:54)
[2021-10-08] MEDS: BENZONATATE 100 MG (TESSALON) CAPSULE PO SCH (21:54)
[2021-10-08] MEDS: SENNA W/DOCUSATE (SENOKOT S) TABLET PO SCH (21:55)
[2021-10-08] MEDS: polyethylene glycoL POWDER 17 GM (MIRALAX) PACK PO SCH (21:55)
[2021-10-08] MEDS: DOCUSATE SODIUM 100 MG (COLACE) CAP PO SCH (21:55)
[2021-10-09] MEDS: CYANOCOBALAMIN 1,000 MCG (VITAMIN B-12) TABLET PO SCH (05:14)
[2021-10-09] MEDS: MULTIVIT W/MINERALS TAB (THERAGRAN M) PO SCH (05:14)
[2021-10-09] MEDS: LEVOTHYROXINE 100 MCG (LEVOTHROID) TAB PO SCH (05:14)
--- NOTE | 2021-10-09 05:44 | Individualized Plan of Care ---
Individualized Plan of Care Rehab Nursing IPOC Order Admission Date Oct 08, 2021 at 13:19 Current Orders Orders Admission Order(Inpt,Obs,Sdc) (10/08/21 12:54) Vital Signs: Per Unit Policy ( ,16,00 (10/08/21 12:54) Pj Almonte (10/08/21 12:54) Sequential Compression Device (10/08/21 12:54) Instrumentation And Control Technician-Inpt Rehab Con (10/08/21 12:54) Rehab Nursing Orders-Ipoc (10/08/21 12:54) Physical Therapy Rehab Orders (10/08/21 12:54) Occupational Therapy Rehab Ord (10/08/21 12:54) Speech Therapy Rehab Orders (10/08/21 12:54) Cbc With Automated Diff (10/09/21 06:00) Comprehensive Metabolic Panel (10/09/21 06:00) Precautions (Aru) (10/08/21 12:54) Weekly Weight WEEK (10/08/21 12:54) Rehab-Intensity Of Therapy (10/08/21 12:54) Initiate Admission Nursing Pro .admission (10/08/21 12:54) Alprazolam Tablet (Xanax Tablet) (10/08/21 13:00) Calcium Carbonate Chew Tablet (Antacid C (10/08/21 13:00) Diphenhydramine Tablet (Benadryl Tablet) (10/08/21 13:00) Docusate Sodium Capsule (Colace Capsule) (10/08/21 21:00) Docusate Sodium Capsule (Colace Capsule) (10/08/21 13:00) Bisacodyl Suppository (Dulcolax Supposit (10/08/21 13:00) Lactulose Oral Solution (Enulose Oral So (10/08/21 13:00) Na Phos/Na Biphos Enema (Fleet Enema Konstantin (10/08/21 13:00) Guaifenesin/Codeine Syrup (Robitussin Ac (10/08/21 13:00) Loperamide Tablet (Imodium Tablet) (10/08/21 13:00) Enoxaparin Injection (Lovenox Injection) (10/08/21 15:00) Melatonin Tablet (Melatonin Tablet) (10/08/21 13:00) Polyethylene Glycol Powder Pkt (Miralax (10/08/21 21:00) Ondansetron Oral Dissolve Tab (Zofran (10/08/21 13:00) Senna S Tablet (Senokot S Tablet) (10/08/21 21:00) Acetaminophen Tablet/Caplet (Tylenol T (10/08/21 13:00) Code/Resuscitation (10/08/21 12:54) Initiate Admission Nursing Pro .admission (10/08/21 12:54) Patient Visit (10/08/21 ) Pt Eval Moderate Complexity (10/08/21 ) Exercise Therap, Ea 15 Min (10/08/21 ) Functional Activities, Ea 15 (10/08/21 ) Benzonatate Capsule (Tessalon Perles) (10/08/21 21:00) Atorvastatin Tablet (Lipitor Tablet) (10/09/21 09:00) Cholecalciferol Capsule/Tablet (Vitamin (10/09/21 09:00) Docusate Sodium Capsule (Colace Capsule) (10/08/21 20:00) Oxybutynin Tablet (Ditropan Tablet) (10/08/21 21:00) Prasugrel Tablet (Effient Tablet) (10/09/21 09:00) Ascorbic Acid Tablet (Vitamin C Tablet) (10/09/21 09:00) Therapeutic Multivitamin Tab (Vitamins, (10/09/21 07:00) Cyanocobalamin Tablet (Vitamin B-12 Tabl (10/09/21 07:00) Levothyroxine Tablet (Synthroid Tablet) (10/09/21 06:30) Zinc Sulfate Capsule (Zinc 50 Mg Capsule (10/09/21 08:00) Azithromycin Tablet (Zithromax Tablet) (10/08/21 21:21) Transfer - Bed/Room/Location (10/09/21 00:33) Transfer - Bed/Room/Location (10/09/21 08:56) Patient Visit (10/09/21 ) Treat. Speech/Lang/Voice (10/09/21 ) Speech Sound Lang Comp (10/09/21 ) Patient Visit (10/09/21 ) Exercise Therap, Ea 15 Min (10/09/21 ) Functional Activities, Ea 15 (10/09/21 ) Gait Training, Ea 15 Min (10/09/21 ) Incentive Spirometry Initial (10/09/21 17:16) Incentive Spirometry (Nursing) Q2H (10/09/21 17:16) Rehab Nursing Orders: Ongoing Assess. of Cognitive Status, Ongoing Assess. of Function Status, Bladder Management, Bladder Scan, Bladder Training, Bowel Management, Bowel Training, Disease Management & Educaiton, DVT Prophylaxis, Fall Prevention, Fluid/Electrolyte/Nutrition Mgmt, Infection Prevention, Medication Management & Education, Management of Risks & Complications, Nutrition Management, Pain Management, Patient/Family Support, Safety Management Intensity of Therapy to be met Patient to be seen: Min.3h per day/5 of 7d PT IPOC Problem List: Activity Tolerance, Functional Strength, Safety, Balance, Gait, Transfer, Bed Mobility, ROM Treatment Plan: Continue Plan of Care Bed Mobility, Education, Functional Activity Cari, Functional Strength, Group Therapy, Gait, Safety, Therapeutic Exercise, Transfers Treatment Duration: Oct 29, 2021 Frequency: At least 5 of 7 days/Wk (IRF) Estimated Hrs Per Day: 1.5 hours per day OT IPOC Problems: Decreased Activ Tolerance, Decreased UE Strength, Impaired Bed Mobility, Impaired Self-Care Skills OT Treatment, Training and Edu: Yes Plan of Care: ADL Retraining, Cognitive Retraining, Functional Mobility, Group Exercise/Act as Ind, UE Funct Exercise/Act Treatment Duration: Oct 21, 2021 Frequency: At least 5 of 7 days/Wk (IRF) Estimated Hrs Per Day: 1.5 hours per day (75-90 min/day ) ST IPOC Speech Therapy Treatment Plan: Discontinue ST Treatment Duration: Oct 09, 2021 Frequency: Modified Program (IRF) Estimated Hrs Per Day: Other Instrumentation And Control Technician/Case Mgmt Instrumentation And Control Technician/Case Managemen: Discharge Planning Dietitian/Boring And Filling Machine Operator Dietitian/Boring And Filling Machine Operator to monitor nutritional status and make changes and/or recommendations as needed and work with speech pathology on dietary upgrades as the occur. Physician IPOC Medical Issues being managed closely and that require the 24 hour availability of a physician: Recent COVID with severe weakness and urinary retention will require close monitoring and aggressive PT OT to return back to baseline Medical Issues: Bowel/Bladder Function, DVT Prophylaxis, Falls Precautions, Fluid/Electrolyte/Nutrition Balance, Infection Protection, Pain Management Brief Synthesis of Preadmission Screen, Post-Admission Evaluation, and Therapy Evaluations: PT OT will focus on regaining function in order to return home with spouse and to prevent falls and regain strength from COVID related weakness Medical Prognosis: 7 days Anticipated Length of Stay: Good GELY AMAYA DO Oct 09, 2021 05:44
--- NOTE | 2021-10-09 05:44 | PM&R Progress Note ---
Subjective HPI/CC On Admission Date Seen by Provider: Oct 09, 2021 Time Seen by Provider: 11:30 Subjective/Events-last exam 10/09/21: Pt is doing well Moved down to rehab 229 Cough is improved with antitussives No pain is reported Walking around well Review of Systems General: Fatigue, Malaise Pulmonary: Dyspnea Objective Exam Vital Signs Vital Signs Date Time Temp Pulse Resp B/P (MAP) Pulse Ox O2 Delivery O2 Flow Rate FiO2 10/09/21 20:10 Room Air 10/09/21 19:40 36.2 69 16 131/63 (85) 95 Capillary Refill : General Appearance: No Apparent Distress, WD/WN, Chronically ill HEENT: PERRL/EOMI, Normal ENT Inspection, Pharynx Normal Neck: Full Range of Motion, Normal Inspection, Non Tender, Supple, Carotid Bruit Respiratory: Chest Non Tender, Lungs Clear, Normal Breath Sounds, No Accessory Muscle Use, No Respiratory Distress, Decreased Breath Sounds Cardiovascular: Regular Rate, Rhythm, No Edema, No Gallop, No JVD, No Murmur, Normal Peripheral Pulses Gastrointestinal: Normal Bowel Sounds, No Organomegaly, No Pulsatile Mass, Non Tender, Soft Back: Normal Inspection, No CVA Tenderness, No Vertebral Tenderness Extremity: Normal Capillary Refill, Normal Inspection, Normal Range of Motion, Non Tender, No Calf Tenderness, No Pedal Edema Neurologic/Psychiatric: Alert, Oriented x3, No Motor/Sensory Deficits, Normal Mood/Affect, Motor Weakness (generalized all ext) Skin: Normal Color, Warm/Dry Lymphatic: No Adenopathy Results/Procedures Lab Laboratory Tests 10/09/21 07:09 Patient resulted labs reviewed. FIM Transfers Therapy Code Descriptions/Definitions Functional [place] Measure: 0=Not Assessed/NA 4=Minimal Assistance 1=Total Assistance 5=Supervision or Setup 2=Maximal Assistance 6=Modified [place] 3=Moderate Assistance 7=Complete IndependenceSCALE: Activities may be completed with or without assistive devices. 7-Fchdneimnr-wjbzanv completes the activity by him/herself with no assistance from a helper. 5-Set-up or Clean-up Assistance-helper sets up or cleans up; patient completes activity. [place] assists only prior to or following the activity. 4-Supervision or Touching Assistance-helper provides verbal cues and/or touching/steadying and/or contact guard assistance as patient completes activity. Assistance may be provided throughout the activity or intermittently. 3-Partial/Moderate Assistance-helper does LESS THAN HALF the effort. [place] lifts, holds or supports trunk or limbs, but provides less than half the effort. 2-Substantial/Maximal Assistance-helper does MORE THAN HALF the effort. [place] lifts or holds trunk or limbs and provides more than half the effort. 5-Uyqyuyadf-boobob does ALL the effort. Patient does none of the effort to complete the activity. Or, the assistance of 2 or more helpers is required for the patient to complete the activity. If activity was not attempted, code reason: 7-Patient Refused. 9-Not Applicable-not attempted and the patient did not perform the activity before the current illness, exacerbation or injury. 10-Not Attempted due to Environmental Limitations-(lack of equipment, weather restraints, etc.). 88-Not Attempted due to Medical Conditions or Safety Concerns. Roll Left to Right (QC): 6 Sit to Lying (QC): 3 Sit to Stand (QC): 4 Chair/Vuo-mf-Rnzsu Xfer(QC): 4 Car Transfer (QC): 88 Gait Training Does the Patient Walk?: Yes Walk 10 feet (QC): 4 Walk 50 ft with 2 Turns(QC): 4 Walk 150 ft (QC): 4 Walking 10ft/uneven surface-QC: 88 Gait Assistive Device: FWW Wheelchair Training Wheel 50 ft with 2 turns (QC): 9 Wheel 150 ft (QC): 9 Stair Training 1 Step (curb) (QC): 88 4 Steps (QC): 88 12 Steps (QC): 88 Balance Picking up an Object (QC): 4 (SBA with engineering lecturer) ADL-Treatment Eating (QC): 5 Oral Hygiene (QC): 4 Shower/Bathe Self (QC): 7 (Pt reports he already completed a shower today with nursing assist.) Upper Body Dressing (QC): 10 Lower Body Dressing (QC): 4 On/Off Footwear (QC): 5 Toileting Hygiene (QC): 4 Assessment/Plan Assessment and Plan Assess & Plan/Chief Complaint Assessment: COVID 19 weakness Cough Bacterial bronchitis s/p urinary retention CAD HLP HTN Plan: Rehab protocol Azithromycin IS 10/09/21: Monitor closely PT OT (1) COVID-19 (2) Generalized weakness (3) Weakness GELY AMAYA DO Oct 09, 2021 05:44
[2021-10-09 07:21] LABS: ALBUMIN 3.3 GM/DL (3.2-4.5); BASOPHILS % (AUTO) 0 % (0-10); EOSINOPHILS # (AUTO) 0.2 10^3/uL (0.0-0.3); EOSINOPHILS % (AUTO) 3 % (0-10); HEMATOCRIT 38 % (40-54); HEMOGLOBIN 12.4 g/dL (13.3-17.7); LYMPHOCYTES % (AUTO) 13 % (12-44); MEAN CORPUSCULAR HEMOGLOBIN 32 pg (25-34); MEAN CORPUSCULAR HGB CONC 32 g/dL (32-36); MEAN CORPUSCULAR VOLUME 100 fL (80-99); MONOCYTES # (AUTO) 0.6 10^3/uL (0.0-1.0); MONOCYTES % (AUTO) 8 % (0-12); NEUTROPHILS # (AUTO) 5.4 10^3/uL (1.8-7.8); NEUTROPHILS % (AUTO) 75 % (42-75); PLATELET COUNT 174 10^3/uL (130-400); WHITE BLOOD COUNT 7.3 10^3/uL (4.3-11.0)
[2021-10-09 07:22] LABS: POTASSIUM 4.1 MMOL/L (3.6-5.0)
[2021-10-09 07:23] LABS: CALCIUM 8.9 MG/DL (8.5-10.1)
[2021-10-09 07:24] LABS: TOTAL PROTEIN 6.9 GM/DL (6.4-8.2)
[2021-10-09 07:26] LABS: BILIRUBIN,TOTAL 0.4 MG/DL (0.1-1.0)
[2021-10-09 07:28] LABS: CREATININE SERUM 0.72 MG/DL (0.60-1.30)
[2021-10-09 07:56] VITALS: BP 152/74
[2021-10-09] MEDS: ZINC SULFATE 220 MG CAPSULE PO SCH (08:46)
[2021-10-09] MEDS: PRASUGREL 10 MG (EFFIENT) TABLET PO SCH (08:46)
[2021-10-09] MEDS: OXYBUTYNIN (DITROPAN) 5 MG TAB PO SCH ×2 (08:46→20:58)
[2021-10-09] MEDS: BENZONATATE 100 MG (TESSALON) CAPSULE PO SCH ×3 (08:46→20:58)
[2021-10-09] MEDS: VITAMIN D3 125 MCG (5,000 UNITS) CAPSULE PO SCH (08:46)
[2021-10-09] MEDS: ASCORBIC ACID (VIT C) 500 MG TABLET PO SCH (08:46)
[2021-10-09] MEDS: SENNA W/DOCUSATE (SENOKOT S) TABLET PO SCH ×2 (08:48→20:02)
[2021-10-09] MEDS: polyethylene glycoL POWDER 17 GM (MIRALAX) PACK PO SCH ×2 (08:48→20:01)
[2021-10-09] MEDS: DOCUSATE SODIUM 100 MG (COLACE) CAP PO SCH ×2 (08:48→20:01)
--- NOTE | 2021-10-09 09:59 | Occupational Ther Daily Note ---
OT Current Status-Daily Note Subjective Pt denies pain, excited to go downstairs to rehab unit. Appearance Pt left sitting in recliner, all needs within reach. Mental Status/Objective Patient Orientation: Person, Place, Situation Attachments: IV ADL-Treatment Therapy Code Descriptions/Definitions Functional [place] Measure: 0=Not Assessed/NA 4=Minimal Assistance 1=Total Assistance 5=Supervision or Setup 2=Maximal Assistance 6=Modified [place] 3=Moderate Assistance 7=Complete IndependenceSCALE: Activities may be completed with or without assistive devices. 5-Asyaeavzmx-hmitdhy completes the activity by him/herself with no assistance from a helper. 5-Set-up or Clean-up Assistance-helper sets up or cleans up; patient completes activity. [place] assists only prior to or following the activity. 4-Supervision or Touching Assistance-helper provides verbal cues and/or touching/steadying and/or contact guard assistance as patient completes activity. Assistance may be provided throughout the activity or intermittently. 3-Partial/Moderate Assistance-helper does LESS THAN HALF the effort. [place] lifts, holds or supports trunk or limbs, but provides less than half the effort. 2-Substantial/Maximal Assistance-helper does MORE THAN HALF the effort. [place] lifts or holds trunk or limbs and provides more than half the effort. 7-Gzasjcbyo-ezijoj does ALL the effort. Patient does none of the effort to complete the activity. Or, the assistance of 2 or more helpers is required for the patient to complete the activity. If activity was not attempted, code reason: 7-Patient Refused. 9-Not Applicable-not attempted and the patient did not perform the activity before the current illness, exacerbation or injury. 10-Not Attempted due to Environmental Limitations-(lack of equipment, weather restraints, etc.). 88-Not Attempted due to Medical Conditions or Safety Concerns. Eating (QC): 6 Oral Hygiene (QC): 6 Shower/Bathe Self (QC): 4 Upper Body Dressing (QC): 5 Lower Body Dressing (QC): 4 On/Off Footwear: 4 Toileting Hygiene (QC): 6 Toilet Transfer (QC): 6 Supine>sit: min-mod a to elevate torso. Pt reports that getting out of bed is the hardest task for him to complete at this time. Sit<>stand: Supervision. Pt ambulated short distance to w/c and OT transported pt to rehab floor. Shower completed, ~50% in sitting/standing. No unsteadiness or safety concerns when standing. Intermittent single UE support during coughing spells. Pt sat to wash LE's, extra effort exhibited but no assist required. Education provided on energy conservation strategies. Pt sat to don clothing. Extra time, effort to thread BLE's into underwear/shorts. LLE appears slightly weaker than Right. He stood with supervision to pull clothing up to waist. Grooming tasks performed independently while standing at sink. Education OT Patient Education: Correct positioning, Energy conservation, Modified ADL techniques, Progress toward Goal/Update tx plan, Purpose of tx/functional activities, Safety issues, Transfer techniques Teaching Recipient: Patient Teaching Methods: Demonstration, Discussion Response to Teaching: Verbalize Understanding, Return Demonstration, Reinforcement Needed OT Short Term Goals Short Term Goals Time Frame: Oct 15, 2021 Eatin Oral hygiene: 5 Toileting hygiene: 6 Shower/bathe self: 4 Upper body dressin Lower body dressin Putting on/taking off footwear: 5 OT Retirement Goals Retirement Goals Time Frame: Oct 21, 2021 Eating (QC): 6 Oral Hygiene (QC): 6 Toileting Hygiene (QC): 6 Shower/Bathe Self (QC): 5 Upper Body Dressing (QC): 6 Lower Body Dressing (QC): 6 On/Off Footwear (QC): 6 1=Demonstrate adherence to instructed precautions during ADL tasks. 2=Patient will verbalize/demonstrate understanding of assistive devices/modifications for ADL. 3=Patient will improve strength/tolerance for activity to enable patient to perform ADL's. OT Education/Plan Problem List/Assessment Assessment: Decreased Activ Tolerance, Decreased UE Strength, Impaired Bed Mobility, Impaired I ADL's, Impaired Self-Care Skills, Restricted Funct UE ROM Discharge Recommendations Plan/Recommendations: Continue POC Treatment Plan/Plan of Care Treatment,Training & Education: Yes Patient would benefit from OT for education, treatment and training to promote independence in ADL's, mobility, safety and/or upper extremity function for ADL's. Plan of Care: ADL Retraining, Cognitive Retraining, Functional Mobility, Group Exercise/Act as Ind, UE Funct Exercise/Act Treatment Duration: Oct 21, 2021 Frequency: At least 5 of 7 days/Wk (IRF) Estimated Hrs Per Day: 1.5 hours per day (75-90 min/day ) Agreement: Yes Rehab Potential: Fair Time/GCodes Start Time: 08:50 Stop Time: 10:05 Total Time Billed (hr/min): 75 Billed Treatment Time 1 visit ADL x5 Gabby Burkett OT Oct 09, 2021 09:59
[2021-10-09 10:10] VITALS: BP 107/62
--- NOTE | 2021-10-09 11:09 | ST Cognitive Linguistic Eval ---
Speech Evaluation-General Medical Diagnosis Covid 19, Debility Onset Date: Oct 04, 2021 Therapy Diagnosis Therapy Diagnosis: Intact Oropharyngeal Swallow Precautions Precautions: Fall Precautions/Isolations: Fall Prevention, Standard Precautions Referral Referring Physician: Dr. Swain Reason for Referral: Evaluation/Treatment Medical History Pertinent Medical History: CAD, HTN Current History The patient is an 81 year old male with a past medical history of CAD, heart attack, and HTN, who presented to the ER with severe weakness. He was found to have Covid-19 but no hypoxia. Reviewed History: Yes Social History Current Living Status: Spouse Speech PLF-Current Status Prior Level of Function The patient denied prior challenges with his speech and language. The patient stated he occasionally experiences difficulty "with names" but overall his memory has not experienced a recent decline. 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 The patient stated the difficulty has occurred for over ten years and denied the presence of s/s of suspected aspiration with P.O. intake. Subjective The patient was seated upright in a recliner, awake and alert upon entrance to his room by the clinician. The patient greeted the clinician appropriately and was agreeable to participation in the cognitive linguistic treatment evaluation. Language Eval: Auditory Comprehends Simple Yes/No Ques: Functional Indent/Objects Multiple [place]: Functional Ident/Pics in Multiple [place]: Functional Follows 1-Step Commands: Functional Follows Complex Directions: Functional Follows General Conversations: Functional Language Eval: Verbal Language Completes Spontaneous Greeting: Functional Produces Auto, Serial Info: Functional Imitates Simple Words/Phrases: Functional Word Finding: Functional Requests Basic Needs: Functional States Basic Personal Info: Functional Expresses Complex Ideas: Functional Language Evaluation: Reading Follows Simple Written Direct: Functional Language Evaluation: Writing Writes to Simple Dictation: Functional Cognitive Patient Orientation The patient was independently oriented to self, location, month, day of week, date, and year. Objective Cognitive Domain Attention: WNL Memory: WNL Problem Solving: Functional Executive Functions: WNL Visuospatial Skills: WNL Composite Severity Rating: WNL Clock Drawing Severity Rating: WNL Objective Formal/Standardized Tests [facility] Mental Status Exam (UMS) Results The patient displayed a result of +28/30 on the SLUMS correlating to normal neurocognitive skills. Oral Motor/Speech Production The patient does not display dysarthria or apraxia of speech. The patient is 100% intelligible in known and unknown contexts. Impression The patient displayed "normal" neurocognitive skills. The patient does report intermittent difficulty with recalling names, however, denied a recent onset. The clinician asked the patient to monitor her current difficulty and notify st aff if he feels a decline is occurring. Speech Patient Assess Expression of Ideas/Wants: Expression (4) Understanding Verbal Content: Understands (4) Brief Interview-Mental Status: Yes Repetition of Three Words: Three (3) Temporal Orientation: Year: Correct (3) Temporal Orientation: Month: Accurate within 5 days(2) Temporal Orientation: Day: Correct (1) Recall : Wear to say "Sock": Yes, no cue required (2) Recall : Color: Yes, no cue required (2) Recall : Bed: Yes,after cueing (1) Memory/Recall Ability: Current season, Staff names and faces, That he or she is in a hsp/hsp unit Speech-Plan Treatment Plan Speech Therapy Treatment Plan: Discontinue ST Treatment Duration: Oct 09, 2021 Frequency: 1 time per week Estimated Hrs Per Day: .5 hour per day Rehab Potential: Good Pt/Family Agrees to Plan: Yes Safety Risks/Education Teaching Recipient: Patient Teaching Methods: Discussion Response to Teaching: Verbalize Understanding Education Topics Provided: ALISA Results, Recommendations, Plan of Care Time Speech Therapy Time In: 10:05 Speech Therapy Time Out: 10:35 Total Billed Time: 30 Billed Treatment Time 1, VONDA ROCHA [facility] ST Oct 09, 2021 11:09
--- NOTE | 2021-10-09 12:04 | Physical Therapy Daily Note ---
PT Daily Note-Current Subjective Pt. agrees to Rx. States he feels he is making slow progress. States he has had a gait issue for some time and some near falls Pain Location: No Pain Reported Mental Status Patient Orientation: Normal For Age Transfers SCALE: Activities may be completed with or without assistive devices. 5-Wvemucgdwj-nhtzaei completes the activity by him/herself with no assistance from a helper. 5-Set-up or Clean-up Assistance-helper sets up or cleans up; patient completes activity. [place] assists only prior to or following the activity. 4-Supervision or Touching Assistance-helper provides verbal cues and/or touching/steadying and/or contact guard assistance as patient completes activity. Assistance may be provided throughout the activity or intermittently. 3-Partial/Moderate Assistance-helper does LESS THAN HALF the effort. [place] li fts, holds or supports trunk or limbs, but provides less than half the effort. 2-Substantial/Maximal Assistance-helper does MORE THAN HALF the effort. [place] lifts or holds trunk or limbs and provides more than half the effort. 7-Mexjsaifd-mbktqc does ALL the effort. Patient does none of the effort to complete the activity. Or, the assistance of 2 or more helpers is required for the patient to complete the activity. If activity was not attempted, code reason: 7-Patient Refused. 9-Not Applicable-not attempted and the patient did not perform the activity before the current illness, exacerbation or injury. 10-Not Attempted due to Environmental Limitations-(lack of equipment, weather restraints, etc.). 88-Not Attempted due to Medical Conditions or Safety Concerns. Sit to Stand (QC): 6 Chair/Pet-fu-Tjtux Xfer(QC): 4 reviewed and instructed in safe stnd to sit and sit to stand using hands and LEs touching chair seat Gait Training Does the Patient Walk?: Yes Walk 10 feet (QC): 4 Walk 50 ft with 2 Turns(QC): 4 Walk 150 ft (QC): 4 Gait Persons Needed: 1 Gait Assistive Device: FWW flexed posture, shuffled gait, when pt. was asked to stand more erect he bent his knees and stated this posture made his low back hurt Exercises Seated Therapy Exercises: Ankle pumps, Sit to stand, Long arc quads, Hip fl exion, Hip abd/add Seated Reps: 15 NuStep Minutes: 12 NuStep Workload: 2 Treatments TRFs, gait, safety, LE seated therex, Nustep, Nustep leg press, in recliner after rx, allison at hand Assessment Current Status: Good Progress PT Short Term Goals Short Term Goals Time Frame: Oct 15, 2021 Roll Left & Right: 6 Sit to lyin (SBA) Lying to sitting on side of be: 4 (SBA) Sit to stand: 4 (SBA) Chair/fnl-ri-fwrsw transfer: 5 Walk 10 feet: 5 Walk 50 feet with two turns: 5 Walk 150 feet: 5 PT Halfway Goals Halfway Goals PT Halfway Goals Time Frame: Oct 29, 2021 Roll Left & Right (QC): 6 Sit to Lying (QC): 6 Lying-Sitting on Side/Bed(QC): 6 Sit to Stand (QC): 6 Chair/Rpo-ax-Aztqf Xfer(QC): 6 Toilet Transfer (QC): 6 Car Transfer (QC): 6 Does the Patient Walk: Yes Walk 10 feet (QC): 6 Walk 50ft with 2 Turns (QC): 6 Walk 150 ft (QC): 6 Walking 10ft on Uneven Surface: 6 1 Step (curb) (QC): 6 4 Steps (QC): 6 12 Steps (QC): 6 Picking up an Object (QC): 6 Wheel 50 feet with 2 turns (QC: 9 Wheel 150 feet: 9 PT Plan Treatment/Plan Treatment Plan: Continue Plan of Care Treatment Plan: Bed Mobility, Education, Functional Activity Cari, Functional Strength, Group Therapy, Gait, Safety, Therapeutic Exercise, Transfers Treatment Duration: Oct 29, 2021 Frequency: At least 5 of 7 days/Wk (IRF) Estimated Hrs Per Day: 1.5 hours per day Patient and/or Family Agrees t: Yes Safety Risks/Education Patient Education: Gait Training, Transfer Techniques, Correct Positioning, Disease Process, Safety Issues Teaching Recipient: Patient Teaching Methods: Demonstration, Discussion Response to Teaching: Verbalize Understanding, Return Demonstration, Jose nforcement Needed Time/GCodes Time In: 1100 Time Out: 1200 Total Billed Treatment Time: 60 Total Billed Treatment 1,EX30m,GT15m,FA15m BRIDGETTE PINON ASPHALT BLENDER Oct 09, 2021 12:04
[2021-10-09] MEDS: guaiFENesin/CODEINE (ROBITUSSIN AC) 10ML UDC PO PRN (12:27)
--- NOTE | 2021-10-09 13:28 | Physical Therapy Daily Note ---
PT Daily Note-Current Subjective Pt. agrees to Rx, wants to lay down after rx. Pain Location: No Pain Reported Mental Status Patient Orientation: Normal For Age Transfers SCALE: Activities may be completed with or without assistive devices. 7-Ewufasnwlj-pswyxzy completes the activity by him/herself with no assistance from a helper. 5-Set-up or Clean-up Assistance-helper sets up or cleans up; patient completes activity. [place] assists only prior to or following the activity. 4-Supervision or Touching Assistance-helper provides verbal cues and/or touching/steadying and/or contact guard assistance as patient completes activity. Assistance may be provided throughout the activity or intermittently. 3-Partial/Moderate Assistance-helper does LESS THAN HALF the effort. [place] lifts, holds or supports trunk or limbs, but provides less than half the effort. 2-Substantial/Maximal Assistance-helper does MORE THAN HALF the effort. [place] lifts or holds trunk or limbs and provides more than half the effort. 4-Fgrirbqpf-pngzbx does ALL the effort. Patient does none of the effort to complete the activity. Or, the assistance of 2 or more helpers is required for the patient to complete the activity. If activity was not attempted, code reason: 7-Patient Refused. 9-Not Applicable-not attempted and the patient did not perform the activity before the current illness, exacerbation or injury. 10-Not Attempted due to Environmental Limitations-(lack of equipment, weather restraints, etc.). 88-Not Attempted due to Medical Conditions or Safety Concerns. into bed with instruction in using LUE to liLLE into bed , pt. then Mod I sit to sup Gait Training Gait Assistive Device: FWW 15ft in room CGA Exercises Supine Ex: Bridging, Ankle pumps, Quad Set, Rolling, Glut sets, Lower trunk rotation, Heel Slides, Short Arc Quads, Scooting, Straight leg raise, Hip abd/add Supine Reps: 12 (x2) Treatments short gait, bed TRFs, bed ex, call allison and phone at hand Assessment Current Status: Good Progress PT Short Term Goals Short Term Goals Time Frame: Oct 15, 2021 Roll Left & Right: 6 Sit to lyin (SBA) Lying to sitting on side of be: 4 (SBA) Sit to stand: 4 (SBA) Chair/svy-bl-imzxo transfer: 5 Walk 10 feet: 5 Walk 50 feet with two turns: 5 Walk 150 feet: 5 PT Fpc Goals Fpc Goals PT Fpc Goals Time Frame: Oct 29, 2021 Roll Left & Right (QC): 6 Sit to Lying (QC): 6 Lying-Sitting on Side/Bed(QC): 6 Sit to Stand (QC): 6 Chair/Oig-dp-Jocpi Xfer(QC): 6 Toilet Transfer (QC): 6 Car Transfer (QC): 6 Does the Patient Walk: Yes Walk 10 feet (QC): 6 Walk 50ft with 2 Turns (QC): 6 Walk 150 ft (QC): 6 Walking 10ft on Uneven Surface: 6 1 Step (curb) (QC): 6 4 Steps (QC): 6 12 Steps (QC): 6 Picking up an Object (QC): 6 Wheel 50 feet with 2 turns (QC: 9 Wheel 150 feet: 9 PT Plan Treatment/Plan Treatment Plan: Continue Plan of Care Treatment Plan: Bed Mobility, Education, Functional Activity Cari, Functional Strength, Group Therapy, Gait, Safety, Therapeutic Exercise, Transfers Treatment Duration: Oct 29, 2021 Frequency: At least 5 of 7 days/Wk (IRF) Estimated Hrs Per Day: 1.5 hours per day Patient and/or Family Agrees t: Yes Safety Risks/Education Patient Education: Gait Training, Transfer Techniques, Correct Positioning, Safety Issues Teaching Recipient: Patient Teaching Methods: Demonstration, Discussion Response to Teaching: Verbalize Understanding, Return Demonstration, Reinforcement Needed Time/GCodes Time In: 1300 Time Out: 1315 Total Billed Treatment Time: 15 Total Billed Treatment 1,EX15 BRIDGETTE PINON FAITH HEALER Oct 09, 2021 13:28
[2021-10-09] MEDS: ENOXAPARIN 40 MG/0.4 ML (LOVENOX) SYR SC SCH (15:42)
[2021-10-09 19:40] VITALS: BP 131/63
[2021-10-09] MEDS: AZITHROMYCIN 250 MG TAB (ZITHROMAX) PO SCH (20:58)
--- NOTE | 2021-10-10 06:19 | PM&R Progress Note ---
Subjective HPI/CC On Admission Date Seen by Provider: Oct 10, 2021 Time Seen by Provider: 12:00 Subjective/Events-last exam 10/10/2021: Pt requiring back into COVID isolation Cough is much improved Not hypoxic Bowels are moving No pain 10/09/21: Pt is doing well Moved down to rehab 229 Cough is improved with antitussives No pain is reported Walking around well Review of Systems General: Fatigue, Malaise Pulmonary: Dyspnea, Cough Objective Exam Vital Signs Vital Signs Date Time Temp Pulse Resp B/P (MAP) Pulse Ox O2 Delivery O2 Flow Rate FiO2 10/10/21 08:04 Room Air 10/10/21 07:48 36.0 75 18 113/58 (76) 93 Capillary Refill : General Appearance: No Apparent Distress, WD/WN, Chronically ill HEENT: PERRL/EOMI, Normal ENT Inspection, Pharynx Normal Neck: Full Range of Motion, Normal Inspection, Non Tender, Supple, Carotid Bruit Respiratory: Chest Non Tender, Lungs Clear, Normal Breath Sounds, No Accessory Muscle Use, No Respiratory Distress, Decreased Breath Sounds Cardiovascular: Regular Rate, Rhythm, No Edema, No Gallop, No JVD, No Murmur, Normal Peripheral Pulses Gastrointestinal: Normal Bowel Sounds, No Organomegaly, No Pulsatile Mass, Non Tender, Soft Back: Normal Inspection, No CVA Tenderness, No Vertebral Tenderness Extremity: Normal Capillary Refill, Normal Inspection, Normal Range of Motion, Non Tender, No Calf Tenderness, No Pedal Edema Neurologic/Psychiatric: Alert, Oriented x3, No Motor/Sensory Deficits, Normal Mood/Affect, Motor Weakness (generalized all ext) Skin: Normal Color, Warm/Dry Lymphatic: No Adenopathy Results/Procedures Lab Patient resulted labs reviewed. FIM Transfers Therapy Code Descriptions/Definitions Functional [place] Measure: 0=Not Assessed/NA 4=Minimal Assistance 1=Total Assistance 5=Supervision or Setup 2=Maximal Assistance 6=Modified [place] 3=Moderate Assistance 7=Complete IndependenceSCALE: Activities may be completed with or without assistive devices. 1-Sjtrhwpcuc-zaxdibc completes the activity by him/herself with no assistance from a helper. 5-Set-up or Clean-up Assistance-helper sets up or cleans up; patient completes activity. [place] assists only prior to or following the activity. 4-Supervision or Touching Assistance-helper provides verbal cues and/or touching/steadying and/or contact guard assistance as patient completes activit y. Assistance may be provided throughout the activity or intermittently. 3-Partial/Moderate Assistance-helper does LESS THAN HALF the effort. [place] lifts, holds or supports trunk or limbs, but provides less than half the effort. 2-Substantial/Maximal Assistance-helper does MORE THAN HALF the effort. [place] lifts or holds trunk or limbs and provides more than half the effort. 6-Apztidqhm-rsfcbp does ALL the effort. Patient does none of the effort to complete the activity. Or, the assistance of 2 or more helpers is required for the patient to complete the activity. If activity was not attempted, code reason: 7-Patient Refused. 9-Not Applicable-not attempted and the patient did not perform the activity before the current illness, exacerbation or injury. 10-Not Attempted due to Environmental Limitations-(lack of equipment, weather restraints, etc.). 88-Not Attempted due to Medical Conditions or Safety Concerns. Roll Left to Right (QC): 6 Sit to Lying (QC): 3 Sit to Stand (QC): 6 Chair/Qrp-ha-Iloss Xfer(QC): 4 Car Transfer (QC): 88 Gait Training Does the Patient Walk?: Yes Walk 10 feet (QC): 4 Walk 50 ft with 2 Turns(QC): 4 Walk 150 ft (QC): 4 Walking 10ft/uneven surface-QC: 88 Gait Persons Needed: 1 Gait Assistive Device: FWW Wheelchair Training Wheel 50 ft with 2 turns (QC): 9 Wheel 150 ft (QC): 9 Stair Training 1 Step (curb) (QC): 88 4 Steps (QC): 88 12 Steps (QC): 88 Balance Picking up an Object (QC): 4 (SBA with puncher and fastener) ADL-Treatment Eating (QC): 6 Oral Hygiene (QC): 6 Shower/Bathe Self (QC): 4 Upper Body Dressing (QC): 5 Lower Body Dressing (QC): 4 On/Off Footwear (QC): 4 Toileting Hygiene (QC): 6 Toilet Transfer (QC): 6 Assessment/Plan Assessment and Plan Assess & Plan/Chief Complaint Assessment: COVID 19 weakness Cough Bacterial bronchitis s/p urinary retention CAD HLP HTN Plan: Rehab protocol Azithromycin IS 10/09/21: Monitor closely PT OT 10/10/21: Monitor closely COVID isolation (1) COVID-19 (2) Generalized weakness (3) Weakness GELY AMAYA 17, 2022 06:19
[2021-10-10] MEDS: MULTIVIT W/MINERALS TAB (THERAGRAN M) PO SCH (06:42)
[2021-10-10] MEDS: LEVOTHYROXINE 100 MCG (LEVOTHROID) TAB PO SCH (06:42)
[2021-10-10] MEDS: CYANOCOBALAMIN 1,000 MCG (VITAMIN B-12) TABLET PO SCH (06:43)
[2021-10-10] MEDS: guaiFENesin/CODEINE (ROBITUSSIN AC) 10ML UDC PO PRN ×3 (06:45→21:35)
[2021-10-10 07:48] VITALS: BP 113/58
[2021-10-10] MEDS: BENZONATATE 100 MG (TESSALON) CAPSULE PO SCH ×3 (07:59→21:34)
[2021-10-10] MEDS: ZINC SULFATE 220 MG CAPSULE PO SCH (07:59)
[2021-10-10] MEDS: PRASUGREL 10 MG (EFFIENT) TABLET PO SCH (07:59)
[2021-10-10] MEDS: OXYBUTYNIN (DITROPAN) 5 MG TAB PO SCH ×2 (07:59→21:34)
[2021-10-10] MEDS: DOCUSATE SODIUM 100 MG (COLACE) CAP PO SCH ×2 (07:59→21:34)
[2021-10-10] MEDS: VITAMIN D3 125 MCG (5,000 UNITS) CAPSULE PO SCH (07:59)
[2021-10-10] MEDS: ASCORBIC ACID (VIT C) 500 MG TABLET PO SCH (07:59)
[2021-10-10] MEDS: polyethylene glycoL POWDER 17 GM (MIRALAX) PACK PO SCH ×2 (08:00→22:06)
[2021-10-10] MEDS: SENNA W/DOCUSATE (SENOKOT S) TABLET PO SCH ×2 (08:00→21:34)
[2021-10-10] MEDS: ACETAMINOPHEN 325 MG TABLET PO PRN ×3 (09:14→21:44)
--- NOTE | 2021-10-10 10:44 | Occupational Ther Daily Note ---
OT Current Status-Daily Note Subjective Pt reports pain in R hip. RN notified and pain meds given during treatment. Appearance Pt left sitting in recliner, all needs within reach at OT departure. Mental Status/Objective Patient Orientation: Person, Place, Situation Attachments: IV ADL-Treatment Therapy Code Descriptions/Definitions Functional [place] Measure: 0=Not Assessed/NA 4=Minimal Assistance 1=Total Assistance 5=Supervision or Setup 2=Maximal Assistance 6=Modified [place] 3=Moderate Assistance 7=Complete IndependenceSCALE: Activities may be completed with or without assistive devices. 8-Voerheekxi-qorruyb completes the activity by him/herself with no assistance from a helper. 5-Set-up or Clean-up Assistance-helper sets up or cleans up; patient completes activity. [place] assists only prior to or following the activity. 4-Supervision or Touching Assistance-helper provides verbal cues and/or touch ing/steadying and/or contact guard assistance as patient completes activity. Assistance may be provided throughout the activity or intermittently. 3-Partial/Moderate Assistance-helper does LESS THAN HALF the effort. [place] lifts, holds or supports trunk or limbs, but provides less than half the effort. 2-Substantial/Maximal Assistance-helper does MORE THAN HALF the effort. [place] lifts or holds trunk or limbs and provides more than half the effort. 6-Vmkejcloi-zwbydr does ALL the effort. Patient does none of the effort to complete the activity. Or, the assistance of 2 or more helpers is required for the patient to complete the activity. If activity was not attempted, code reason: 7-Patient Refused. 9-Not Applicable-not attempted and the patient did not perform the activity before the current illness, exacerbation or injury. 10-Not Attempted due to Environmental Limitations-(lack of equipment, weather restraints, etc.). 88-Not Attempted due to Medical Conditions or Safety Concerns. Eating (QC): 6 Oral Hygiene (QC): 6 Shower/Bathe Self (QC): 6 Upper Body Dressing (QC): 6 Lower Body Dressing (QC): 6 On/Off Footwear: 6 Toileting Hygiene (QC): 6 Toilet Transfer (QC): 6 Pt retrieved clothing and set up shower independently. He was able to reach all body parts in sitting/standing, no LOB or cues for safety required. Clothing donned seated on edge of shower bench. Pt does require extra time for all adls as he moves slowly and due to several coughing episodes, but no physical assistance required. Education on energy conservation strategies including purchase of shower chair. Other Treatment OT issued and instructed pt on theraband exercises with red (moderate) band. All shoulder movements performed to 90 degrees only. Tactile and verbal cues for correct form. 2x12 all planes. Pt also performed seated core exercises including modified crunch, LE marches, and lateral leans both R and Left. 1x10 each. Short rest breaks needed throughout exercises secondary to fatigue. Education OT Patient Education: Correct positioning, Energy conservation, Progress toward Goal/Update tx plan, Purpose of tx/functional activities Teaching Recipient: Patient Teaching Methods: Demonstration, Discussion Response to Teaching: Verbalize Understanding, Return Demonstration OT Short Term Goals Short Term Goals Time Frame: Oct 15, 2021 Eatin Oral hygiene: 5 Toileting hygiene: 6 Shower/bathe self: 4 Upper body dressin Lower body dressin Putting on/taking off footwear: 5 OT Offline Editor Goals Offline Editor Goals Time Frame: Oct 21, 2021 Eating (QC): 6 Oral Hygiene (QC): 6 Toileting Hygiene (QC): 6 Shower/Bathe Self (QC): 5 Upper Body Dressing (QC): 6 Lower Body Dressing (QC): 6 On/Off Footwear (QC): 6 1=Demonstrate adherence to instructed precautions during ADL tasks. 2=Patient will verbalize/demonstrate understanding of assistive devices/modifications for ADL. 3=Patient will improve strength/tolerance for activity to enable patient to perform ADL's. OT Education/Plan Problem List/Assessment Assessment: Decreased Activ Tolerance, Decreased UE Strength, Impaired I ADL's, Restricted Funct UE ROM Discharge Recommendations Plan/Recommendations: Continue POC Therapy Discharge Recommendati: Home & Family Treatment Plan/Plan of Care Treatment,Training & Education: Yes Patient would benefit from OT for education, treatment and training to promote independence in ADL's, mobility, safety and/or upper extremity function for ADL's. Plan of Care: ADL Retraining, Cognitive Retraining, Functional Mobility, Group Exercise/Act as Ind, UE Funct Exercise/Act Treatment Duration: Oct 21, 2021 Frequency: At least 5 of 7 days/Wk (IRF) Estimated Hrs Per Day: 1.5 hours per day (75-90 min/day ) Agreement: Yes Rehab Potential: Good Time/GCodes Start Time: 08:25 Stop Time: 09:55 Total Time Billed (hr/min): 90 Billed Treatment Time 1 visit ADL x4 (60 min) EX x2 (30 min) Gabby Burkett OT Oct 10, 2021 10:44
--- NOTE | 2021-10-10 11:09 | Physical Therapy Daily Note ---
PT Daily Note-Current Subjective Pt. agrees to Rx. Inquires why the rx must be done inside his room today but yesterday he could come out of his room with his mask. This ELECTRONIC SECURITY TECHNICIAN responding that we have new information and protective measures apparently just discovered today. Pt. agrees to comply in room. Pt. c/o again of off and on pain in bilat hips that he states does not come on until he attempts to be active. (see below for this PTAs recommendations etc) Pain Numeric Pain Scale: 5-Moderate Pain Location: Right Location Body Site: Hip (and left) Appearance pt. has noted habit of seated leg crossing, Increased frequent and loose crackly dry sounding cough mannie during periods of activity in his room Mental Status Patient Orientation: Person, Place, Time, Situation, Normal For Age Attachments: Other-See Comments (mask) Transfers SCALE: Activities may be completed with or without assistive devices. 6-Pvihaevrri-fdsslnz completes the activity by him/herself with no assistance from a helper. 5-Set-up or Clean-up Assistance-helper sets up or cleans up; patient completes activity. [place] assists only prior to or following the activity. 4-Supervision or Touching Assistance-helper provides verbal cues and/or touching/steadying and/or contact guard assistance as patient completes activity. Assistance may be provided throughout the activity or intermittently. 3-Partial/Moderate Assistance-helper does LESS THAN HALF the effort. [place] lifts, holds or supports trunk or limbs, but provides less than half the effort. 2-Substantial/Maximal Assistance-helper does MORE THAN HALF the effort. [place] lifts or holds trunk or limbs and provides more than half the effort. 6-Antleknjh-haoifg does ALL the effort. Patient does none of the effort to complete the activity. Or, the assistance of 2 or more helpers is required for the patient to complete the activity. If activity was not attempted, code reason: 7-Patient Refused. 9-Not Applicable-not attempted and the patient did not perform the activity before the current illness, exacerbation or injury. 10-Not Attempted due to Environmental Limitations-(lack of equipment, weather restraints, etc.). 88-Not Attempted due to Medical Conditions or Safety Concerns. Roll Left & Right (QC): 6 Sit to Lying (QC): 6 Lying to Sitting/Side of Bed(Q: 6 Sit to Stand (QC): 6 Chair/Pqh-ui-Gpwrr Xfer(QC): 6 Toilet Transfer (QC): 6 pt. shares home situation and it is found that pt. gets in out much easier on his left side of bed Gait Training Does the Patient Walk?: Yes Walk 10 feet (QC): 6 Walk 50 ft with 2 Turns(QC): 6 Walk 150 ft (QC): 6 Walking 10ft/uneven surface-QC: 4 Gait Persons Needed: 1 Gait Assistive Device: FWW parkinsons like gait with small steps, flexed trunk and shuffle with poor heels strike Stair Training Stair Training: Handrails/: 2 handrails #of Steps: 8 1 Step (curb) (QC): 4 4 Steps (QC): 4 12 Steps (QC): 88 Stairs: Pattern: Step to pt. needed a few reminders for where to use hands as this QC session was simulated inside pts room due to covid restrictions. up and over single curb like step 8 times having to turn around each step using foot rail of bed on one side and sideways walker on other side , pt remarked he was fatigued at 8 steps Balance Picking up an Object (QC): 6 Exercises Seated Therapy Exercises: Ankle pumps, Sit to stand, Long arc quads, Hip flexion, Hip abd/add Seated Reps: 15 Treatments QC obtained in room using small seat cushion and curb step as well as psuedo car enter and exit secondary to Covid restrictions Assessment Current Status: Good Progress pt. progressing well. Noted that cough is increased this date, but not pr oductive with no c/o SOB PT Short Term Goals Short Term Goals Time Frame: Oct 15, 2021 Roll Left & Right: 6 Sit to lyin (SBA) Lying to sitting on side of be: 4 (SBA) Sit to stand: 4 (SBA) Chair/ctt-uv-jiaqn transfer: 5 Walk 10 feet: 5 Walk 50 feet with two turns: 5 Walk 150 feet: 5 PT Halfway Goals Primary Class Teacher Goals PT Halfway Goals Time Frame: Oct 29, 2021 Roll Left & Right (QC): 6 Sit to Lying (QC): 6 Lying-Sitting on Side/Bed(QC): 6 Sit to Stand (QC): 6 Chair/Cua-jy-Scqes Xfer(QC): 6 Toilet Transfer (QC): 6 Car Transfer (QC): 6 Does the Patient Walk: Yes Walk 10 feet (QC): 6 Walk 50ft with 2 Turns (QC): 6 Walk 150 ft (QC): 6 Walking 10ft on Uneven Surface: 6 1 Step (curb) (QC): 6 4 Steps (QC): 6 12 Steps (QC): 6 Picking up an Object (QC): 6 Wheel 50 feet with 2 turns (QC: 9 Wheel 150 feet: 9 PT Plan Treatment/Plan Treatment Plan: Continue Plan of Care Treatment Plan: Bed Mobility, Education, Functional Activity Cari, Functional Strength, Group Therapy, Gait, Safety, Therapeutic Exercise, Transfers Treatment Duration: Oct 29, 2021 Frequency: At least 5 of 7 days/Wk (IRF) Estimated Hrs Per Day: 1.5 hours per day Patient and/or Family Agrees t: Yes Safety Risks/Education Patient Education: Gait Training, Transfer Techniques, Steps, Correct Positioning, Disease Process, Safety Issues Teaching Recipient: Patient Teaching Methods: Demonstration, Discussion Response to Teaching: Verbalize Understanding, Return Demonstration, Reinforcement Needed Time/GCodes Time In: 1000 Time Out: 1100 Total Billed Treatment Time: 60 Total Billed Treatment 1,FA40m,GT20m BRIDGETTE PINON ELECTRONIC SECURITY TECHNICIAN Oct 10, 2021 11:09
--- NOTE | 2021-10-10 13:33 | Physical Therapy Daily Note ---
PT Daily Note-Current Subjective Pt. c/o some continued right hip pain wit activity but strangely enough notes along with this RESIDENT IN DIAGNOSTIC RADIOLOGY that the L hip has more weakness in regards SLR, pt. unable to SLR on left without assist. Pt agrees to Rx. Pain Numeric Pain Scale: 4 Location: Right Location Body Site: Hip Pain Description: Ache Mental Status Patient Orientation: Normal For Age Attachments: Other-See Comments (mask) Transfers SCALE: Activities may be completed with or without assistive devices. 1-Usftlvikwk-nurlxra completes the activity by him/herself with no assistance from a helper. 5-Set-up or Clean-up Assistance-helper sets up or cleans up; patient completes activity. [place] assists only prior to or following the activity. 4-Supervision or Touching Assistance-helper provides verbal cues and/or touching/steadying and/or contact guard assistance as patient completes activity. Assistance may be provided throughout the activity or intermittently. 3-Partial/Moderate Assistance-helper does LESS THAN HALF the effort. [place] lifts, holds or supports trunk or limbs, but provides less than half the effort. 2-Substantial/Maximal Assistance-helper does MORE THAN HALF the effort. [place] lifts or holds trunk or limbs and provides more than half the effort. 0-Zbdwnmrwl-ppccfe does ALL the effort. Patient does none of the effort to complete the activity. Or, the assistance of 2 or more helpers is required for the patient to complete the activity. If activity was not attempted, code reason: 7-Patient Refused. 9-Not Applicable-not attempted and the patient did not perform the activity before the current illness, exacerbation or injury. 10-Not Attempted due to Environmental Limitations-(lack of equipment, weather restraints, etc.). 88-Not Attempted due to Medical Conditions or Safety Concerns. Sit to Stand (QC): 6 Chair/Zwf-or-Kqdht Xfer(QC): 6 Car Transfer (QC): 4 simulated car TRF in room at bed , chair to simulate door, raised bed to approx height of the car pt. will go home in...pt. CGA Exercises Supine Ex: Bridging, Ankle pumps, Glut sets, Heel Slides, Scooting, Straight leg raise, Hip abd/add Supine Reps: 15 Seated Therapy Exercises: Ankle pumps, Sit to stand, Long arc quads, Hip flexion, Hip abd/add Seated Reps: 15 Standing: Hip Abduction, Heel/toe raises, Marching, Mini squats Standing Reps: 12 Treatments instructed pt. to stop leg crossing again as this RESIDENT IN DIAGNOSTIC RADIOLOGY believes this is affecting hips/ low back and possibly causing pts hip pain Assessment Current Status: Good Progress pts cough continues frequent during activity and sounds deep and crackly. pt. states he is now getting something up with cough PT Short Term Goals Short Term Goals Time Frame: Oct 15, 2021 Roll Left & Right: 6 Sit to lyin (SBA) Lying to sitting on side of be: 4 (SBA) Sit to stand: 4 (SBA) Chair/skf-pj-tbyye transfer: 5 Walk 10 feet: 5 Walk 50 feet with two turns: 5 Walk 150 feet: 5 PT Shelter Goals Shelter Goals PT Business Analysis Consultant Goals Time Frame: Oct 29, 2021 Roll Left & Right (QC): 6 Sit to Lying (QC): 6 Lying-Sitting on Side/Bed(QC): 6 Sit to Stand (QC): 6 Chair/Yuv-vi-Wsury Xfer(QC): 6 Toilet Transfer (QC): 6 Car Transfer (QC): 6 Does the Patient Walk: Yes Walk 10 feet (QC): 6 Walk 50ft with 2 Turns (QC): 6 Walk 150 ft (QC): 6 Walking 10ft on Uneven Surface: 6 1 Step (curb) (QC): 6 4 Steps (QC): 6 12 Steps (QC): 6 Picking up an Object (QC): 6 Wheel 50 feet with 2 turns (QC: 9 Wheel 150 feet: 9 PT Plan Treatment/Plan Treatment Plan: Continue Plan of Care Treatment Plan: Bed Mobility, Education, Functional Activity Cari, Functional Strength, Group Therapy, Gait, Safety, Therapeutic Exercise, Transfers Treatment Duration: Oct 29, 2021 Frequency: At least 5 of 7 days/Wk (IRF) Estimated Hrs Per Day: 1.5 hours per day Patient and/or Family Agrees t: Yes Safety Risks/Education Patient Education: Transfer Techniques, Correct Positioning, Disease Process, Safety Issues Teaching Recipient: Patient Teaching Methods: Demonstration, Discussion Response to Teaching: Verbalize Understanding, Return Demonstration, Reinforcement Needed Time/GCodes Time In: 1300 Time Out: 1330 Total Billed Treatment Time: 30 Total Billed Treatment 1,EX30m BRIDGETTE PINON RESIDENT IN DIAGNOSTIC RADIOLOGY Oct 10, 2021 13:33
[2021-10-10] MEDS: ENOXAPARIN 40 MG/0.4 ML (LOVENOX) SYR SC SCH (16:03)
[2021-10-10 20:50] VITALS: BP 150/76
[2021-10-10] MEDS: AZITHROMYCIN 250 MG TAB (ZITHROMAX) PO SCH (21:34)
--- NOTE | 2021-10-11 06:10 | PM&R Progress Note ---
Subjective HPI/CC On Admission Date Seen by Provider: Oct 11, 2021 Time Seen by Provider: 11:00 Subjective/Events-last exam 10/11/2021: Patient reports cough is better Feeling a lot better Slept well last night No voiding issues Bowels are moving well 10/10/2021: Pt requiring back into COVID isolation Cough is much improved Not hypoxic Bowels are moving No pain 10/09/21: Pt is doing well Moved down to rehab 229 Cough is improved with antitussives No pain is reported Walking around well Review of Systems Pulmonary: Cough Objective Exam Vital Signs Vital Signs Date Time Temp Pulse Resp B/P (MAP) Pulse Ox O2 Delivery O2 Flow Rate FiO2 10/11/21 19:31 37.0 63 16 116/70 (85) 97 Room Air Capillary Refill : General Appearance: No Apparent Distress, WD/WN, Chronically ill HEENT: PERRL/EOMI, Normal ENT Inspection, Pharynx Normal Neck: Full Range of Motion, Normal Inspection, Non Tender, Supple, Carotid Bruit Respiratory: Chest Non Tender, Lungs Clear, Normal Breath Sounds, No Accessory Muscle Use, No Respiratory Distress, Decreased Breath Sounds Cardiovascular: Regular Rate, Rhythm, No Edema, No Gallop, No JVD, No Murmur, Normal Peripheral Pulses Gastrointestinal: Normal Bowel Sounds, No Organomegaly, No Pulsatile Mass, Non Tender, Soft Back: Normal Inspection, No CVA Tenderness, No Vertebral Tenderness Extremity: Normal Capillary Refill, Normal Inspection, Normal Range of Motion, Non Tender, No Calf Tenderness, No Pedal Edema Neurologic/Psychiatric: Alert, Oriented x3, No Motor/Sensory Deficits, Normal Mood/Affect, Motor Weakness (generalized all ext) Skin: Normal Color, Warm/Dry Lymphatic: No Adenopathy Results/Procedures Lab Patient resulted labs reviewed. FIM Transfers Therapy Code Descriptions/Definitions Functional [place] Measure: 0=Not Assessed/NA 4=Minimal Assistance 1=Total Assistance 5=Supervision or Setup 2=Maximal Assistance 6=Modified [place] 3=Moderate Assistance 7=Complete IndependenceSCALE: Activities may be completed with or without assistive devices. 3-Vevsdpoths-pkovsqf completes the activity by him/herself with no assistance from a helper. 5-Set-up or Clean-up Assistance-helper sets up or cleans up; patient completes activity. [place] assists only prior to or following the activity. 4-Supervision or Touching Assistance-helper provides verbal cues and/or touching/steadying and/or contact guard assistance as patient completes activity. Assistance may be provided throughout the activity or intermittently. 3-Partial/Moderate Assistance-helper does LESS THAN HALF the effort. [place] lifts, holds or supports trunk or limbs, but provides less than half the effort. 2-Substantial/Maximal Assistance-helper does MORE THAN HALF the effort. [place] lifts or holds trunk or limbs and provides more than half the effort. 2-Jlichumsl-rfufgp does ALL the effort. Patient does none of the effort to com plete the activity. Or, the assistance of 2 or more helpers is required for the patient to complete the activity. If activity was not attempted, code reason: 7-Patient Refused. 9-Not Applicable-not attempted and the patient did not perform the activity before the current illness, exacerbation or injury. 10-Not Attempted due to Environmental Limitations-(lack of equipment, weather restraints, etc.). 88-Not Attempted due to Medical Conditions or Safety Concerns. Roll Left to Right (QC): 6 Sit to Lying (QC): 6 Sit to Stand (QC): 6 Chair/Jiu-sf-Uyclh Xfer(QC): 6 Car Transfer (QC): 4 Gait Training Does the Patient Walk?: Yes Walk 10 feet (QC): 6 Walk 50 ft with 2 Turns(QC): 6 Walk 150 ft (QC): 6 Walking 10ft/uneven surface-QC: 4 Gait Persons Needed: 1 Gait Assistive Device: FWW Wheelchair Training Wheel 50 ft with 2 turns (QC): 9 Wheel 150 ft (QC): 9 Stair Training Stair Training: Handrails/: 2 handrails #of Steps: 8 1 Step (curb) (QC): 4 4 Steps (QC): 4 12 Steps (QC): 88 Stairs: Pattern: Step to Balance Picking up an Object (QC): 6 ADL-Treatment Eating (QC): 6 Oral Hygiene (QC): 6 Shower/Bathe Self (QC): 6 Upper Body Dressing (QC): 6 Lower Body Dressing (QC): 6 On/Off Footwear (QC): 6 Toileting Hygiene (QC): 6 Toilet Transfer (QC): 6 Assessment/Plan Assessment and Plan Assess & Plan/Chief Complaint Assessment: COVID 19 weakness Cough Bacterial bronchitis s/p urinary retention CAD HLP HTN Plan: Rehab protocol Azithromycin IS 10/09/21: Monitor closely PT OT 10/10/21: Monitor closely COVID isolation 10/11/2021: Saturninosin-DM Supportive care Monitor closely (1) COVID-19 (2) Generalized weakness (3) Weakness GELY AMAYA DO Oct 11, 2021 06:10
[2021-10-11] MEDS: LEVOTHYROXINE 100 MCG (LEVOTHROID) TAB PO SCH (06:22)
[2021-10-11] MEDS: MULTIVIT W/MINERALS TAB (THERAGRAN M) PO SCH (06:22)
[2021-10-11] MEDS: CYANOCOBALAMIN 1,000 MCG (VITAMIN B-12) TABLET PO SCH (06:22)
[2021-10-11] MEDS: guaiFENesin/CODEINE (ROBITUSSIN AC) 10ML UDC PO PRN ×3 (06:26→21:43)
[2021-10-11 07:30] VITALS: BP 137/80
[2021-10-11] MEDS: DOCUSATE SODIUM 100 MG (COLACE) CAP PO SCH ×2 (08:48→21:42)
[2021-10-11] MEDS: ASCORBIC ACID (VIT C) 500 MG TABLET PO SCH (08:48)
[2021-10-11] MEDS: PRASUGREL 10 MG (EFFIENT) TABLET PO SCH (08:48)
[2021-10-11] MEDS: ACETAMINOPHEN 325 MG TABLET PO PRN ×3 (08:48→21:43)
[2021-10-11] MEDS: VITAMIN D3 125 MCG (5,000 UNITS) CAPSULE PO SCH (08:48)
[2021-10-11] MEDS: BENZONATATE 100 MG (TESSALON) CAPSULE PO SCH ×3 (08:48→21:43)
[2021-10-11] MEDS: OXYBUTYNIN (DITROPAN) 5 MG TAB PO SCH ×2 (08:48→21:42)
[2021-10-11] MEDS: SENNA W/DOCUSATE (SENOKOT S) TABLET PO SCH ×2 (08:48→21:44)
[2021-10-11] MEDS: ZINC SULFATE 220 MG CAPSULE PO SCH (08:48)
[2021-10-11] MEDS: polyethylene glycoL POWDER 17 GM (MIRALAX) PACK PO SCH ×2 (08:49→21:44)
--- NOTE | 2021-10-11 11:10 | Physical Therapy Daily Note ---
PT Daily Note-Current Subjective Pt. up in recliner, agrees to Rx, states he is much bettr, "Im still coughing but not like i was and I have successfully gotten myself in out bed several times" Pain Numeric Pain Scale: 4 Location: Right Location Body Site: Hip Pain Description: Ache Mental Status Patient Orientation: Normal For Age Attachments: Oxygen, Other-See Comments (mask) Transfers SCALE: Activities may be completed with or without assistive devices. 1-Mzsrzxrybi-nyefeeb completes the activity by him/herself with no assistance from a helper. 5-Set-up or Clean-up Assistance-helper sets up or cleans up; patient completes activity. [place] assists only prior to or following the activity. 4-Supervision or Touching Assistance-helper provides verbal cues and/or t ouching/steadying and/or contact guard assistance as patient completes activity. Assistance may be provided throughout the activity or intermittently. 3-Partial/Moderate Assistance-helper does LESS THAN HALF the effort. [place] lifts, holds or supports trunk or limbs, but provides less than half the effort. 2-Substantial/Maximal Assistance-helper does MORE THAN HALF the effort. [place] lifts or holds trunk or limbs and provides more than half the effort. 2-Qurbubgci-thjbuw does ALL the effort. Patient does none of the effort to complete the activity. Or, the assistance of 2 or more helpers is required for the patient to complete the activity. If activity was not attempted, code reason: 7-Patient Refused. 9-Not Applicable-not attempted and the patient did not perform the activity before the current illness, exacerbation or injury. 10-Not Attempted due to Environmental Limitations-(lack of equipment, weather restraints, etc.). 88-Not Attempted due to Medical Conditions or Safety Concerns. in out chair and flat bed SBA Gait Training Does the Patient Walk?: Yes Gait Assistive Device: FWW 65 ft inside room SBA FWW, flexed posture and shuffled gait conts, pt. c/o LBP if he straightens his back erect Exercises Supine Ex: Ankle pumps, Quad Set, Rolling, Glut sets, Lower trunk rotation, Heel Slides, Short Arc Quads, Scooting, Straight leg raise, Hip abd/add Supine Reps: 15 today in supine pt. able to SLR bilat with initiatin assist on right then pt. was indep, pt. states he has stopped crossing his legs, "its hard but Im doing it" Treatments up in recliner after above described Rx, call allison at hand Assessment increased strength, increased gait stability, coughing less PT Short Term Goals Short Term Goals Time Frame: Oct 15, 2021 Roll Left & Right: 6 Sit to lyin (SBA) Lying to sitting on side of be: 4 (SBA) Sit to stand: 4 (SBA) Chair/uvq-ls-rmvze transfer: 5 Walk 10 feet: 5 Walk 50 feet with two turns: 5 Walk 150 feet: 5 PT Skilled Nursing Goals Skilled Nursing Goals PT Reshipping Clerk Goals Time Frame: Oct 29, 2021 Roll Left & Right (QC): 6 Sit to Lying (QC): 6 Lying-Sitting on Side/Bed(QC): 6 Sit to Stand (QC): 6 Chair/Ltw-rd-Eamdw Xfer(QC): 6 Toilet Transfer (QC): 6 Car Transfer (QC): 6 Does the Patient Walk: Yes Walk 10 feet (QC): 6 Walk 50ft with 2 Turns (QC): 6 Walk 150 ft (QC): 6 Walking 10ft on Uneven Surface: 6 1 Step (curb) (QC): 6 4 Steps (QC): 6 12 Steps (QC): 6 Picking up an Object (QC): 6 Wheel 50 feet with 2 turns (QC: 9 Wheel 150 feet: 9 PT Plan Treatment/Plan Treatment Plan: Continue Plan of Care Treatment Plan: Bed Mobility, Education, Functional Activity Cari, Functional Strength, Group Therapy, Gait, Safety, Therapeutic Exercise, Transfers Treatment Duration: Oct 29, 2021 Frequency: At least 5 of 7 days/Wk (IRF) Estimated Hrs Per Day: 1.5 hours per day Patient and/or Family Agrees t: Yes Safety Risks/Education Patient Education: Gait Training, Transfer Techniques, Correct Positioning, Di sease Process, Safety Issues Teaching Recipient: Patient Teaching Methods: Demonstration, Discussion Response to Teaching: Verbalize Understanding, Return Demonstration, Reinforcement Needed Time/GCodes Time In: 1025 Time Out: 1100 Total Billed Treatment Time: 35 Total Billed Treatment 1,GT15m,EX20m BRIDGETTE PINON HISTOLOGIST Oct 11, 2021 11:10
[2021-10-11] MEDS: ENOXAPARIN 40 MG/0.4 ML (LOVENOX) SYR SC SCH (14:07)
[2021-10-11 19:31] VITALS: BP 116/70
[2021-10-11] MEDS: AZITHROMYCIN 250 MG TAB (ZITHROMAX) PO SCH (21:42)
[2021-10-12] MEDS: LEVOTHYROXINE 100 MCG (LEVOTHROID) TAB PO SCH (06:54)
[2021-10-12] MEDS: MULTIVIT W/MINERALS TAB (THERAGRAN M) PO SCH (06:54)
[2021-10-12] MEDS: CYANOCOBALAMIN 1,000 MCG (VITAMIN B-12) TABLET PO SCH (06:55)
[2021-10-12] MEDS: guaiFENesin/CODEINE (ROBITUSSIN AC) 10ML UDC PO PRN ×3 (06:55→21:15)
[2021-10-12] MEDS: ACETAMINOPHEN 325 MG TABLET PO PRN ×3 (06:55→21:15)
--- NOTE | 2021-10-12 07:12 | PM&R Progress Note ---
Subjective HPI/CC On Admission Date Seen by Provider: Oct 12, 2021 Time Seen by Provider: 12:00 Subjective/Events-last exam 10/12/21: Out of isolation tomorrow Right hip pain continues we will get x-ray Diclofenac gel ordered Cough is improved 10/11/2021: Patient reports cough is better Feeling a lot better Slept well last night No voiding issues Bowels are moving well 10/10/2021: Pt requiring back into COVID isolation Cough is much improved Not hypoxic Bowels are moving No pain 10/09/21: Pt is doing well Moved down to rehab 229 Cough is improved with antitussives No pain is reported Walking around well Review of Systems General: Fatigue, Malaise Musculoskeletal: leg pain Objective Exam Vital Signs Vital Signs Date Time Temp Pulse Resp B/P (MAP) Pulse Ox O2 Delivery O2 Flow Rate FiO2 10/12/21 09:26 Room Air 10/12/21 07:30 36.7 68 20 115/66 (82) 97 Capillary Refill : General Appearance: No Apparent Distress, WD/WN, Chronically ill HEENT: PERRL/EOMI, Normal ENT Inspection, Pharynx Normal Neck: Full Range of Motion, Normal Inspection, Non Tender, Supple, Carotid Bruit Respiratory: Chest Non Tender, Lungs Clear, Normal Breath Sounds, No Accessory Muscle Use, No Respiratory Distress, Decreased Breath Sounds Cardiovascular: Regular Rate, Rhythm, No Edema, No Gallop, No JVD, No Murmur, Normal Peripheral Pulses Gastrointestinal: Normal Bowel Sounds, No Organomegaly, No Pulsatile Mass, Non Tender, Soft Back: Normal Inspection, No CVA Tenderness, No Vertebral Tenderness Extremity: Normal Capillary Refill, Normal Inspection, Normal Range of Motion, Non Tender, No Calf Tenderness, No Pedal Edema Neurologic/Psychiatric: Alert, Oriented x3, No Motor/Sensory Deficits, Normal Mood/Affect, Motor Weakness (generalized all ext) Skin: Normal Color, Warm/Dry Lymphatic: No Adenopathy Results/Procedures Lab Patient resulted labs reviewed. FIM Transfers Therapy Code Descriptions/Definitions Functional [place] Measure: 0=Not Assessed/NA 4=Minimal Assistance 1=Total Assistance 5=Supervision or Setup 2=Maximal Assistance 6=Modified [place] 3=Moderate Assistance 7=Complete IndependenceSCALE: Activities may be completed with or without assistive devices. 1-Wlemhkqxsi-vegwoul completes the activity by him/herself with no assistance from a helper. 5-Set-up or Clean-up Assistance-helper sets up or cleans up; patient completes activity. [place] assists only prior to or following the activity. 4-Supervision or Touching Assistance-helper provides verbal cues and/or touching/steadying and/or contact guard assistance as patient completes activity. Assistance may be provided throughout the activity or intermittently. 3-Partial/Moderate Assistance-helper does LESS THAN HALF the effort. [place] lifts, holds or supports trunk or limbs, but provides less than half the effort. 2-Substantial/Maximal Assistance-helper does MORE THAN HALF the effort. [place] lifts or holds trunk or limbs and provides more than half the effort. 2-Njcvepgte-acfyxp does ALL the effort. Patient does none of the effort to complete the activity. Or, the assistance of 2 or more helpers is required for the patient to complete the activity. If activity was not attempted, code reason: 7-Patient Refused. 9-Not Applicable-not attempted and the patient did not perform the activity before the current illness, exacerbation or injury. 10-Not Attempted due to Environmental Limitations-(lack of equipment, weather restraints, etc.). 88-Not Attempted due to Medical Conditions or Safety Concerns. Roll Left to Right (QC): 6 Sit to Lying (QC): 6 Sit to Stand (QC): 6 Chair/Kht-rm-Voviz Xfer(QC): 6 Car Transfer (QC): 4 Gait Training Does the Patient Walk?: Yes Walk 10 feet (QC): 6 Walk 50 ft with 2 Turns(QC): 6 Walk 150 ft (QC): 6 Walking 10ft/uneven surface-QC: 4 Gait Persons Needed: 1 Gait Assistive Device: FWW Wheelchair Training Wheel 50 ft with 2 turns (QC): 9 Wheel 150 ft (QC): 9 Stair Training Stair Training: Handrails/: 2 handrails #of Steps: 8 1 Step (curb) (QC): 4 4 Steps (QC): 4 12 Steps (QC): 88 Stairs: Pattern: Step to Balance Picking up an Object (QC): 6 ADL-Treatment Eating (QC): 6 Oral Hygiene (QC): 6 Shower/Bathe Self (QC): 6 Upper Body Dressing (QC): 6 Lower Body Dressing (QC): 6 On/Off Footwear (QC): 6 Toileting Hygiene (QC): 6 Toilet Transfer (QC): 6 Assessment/Plan Assessment and Plan Assess & Plan/Chief Complaint None assessment: COVID 19 weakness Cough Bacterial bronchitis s/p urinary retention CAD HLP HTN Plan: Rehab protocol Azithromycin IS 10/09/21: Monitor closely PT OT 10/10/21: Monitor closely COVID isolation 10/11/2021: Robitussin-DM Supportive care Monitor closely 10/12/21: Right hip x-ray Supportive care (1) COVID-19 (2) Generalized weakness (3) Weakness GELY AMAYA DO Oct 12, 2021 07:12
[2021-10-12 07:30] VITALS: BP_SYST 115; BP_SYST 141; BP_DIAS 61; BP_DIAS 66
[2021-10-12] MEDS: ASCORBIC ACID (VIT C) 500 MG TABLET PO SCH (09:48)
[2021-10-12] MEDS: polyethylene glycoL POWDER 17 GM (MIRALAX) PACK PO SCH ×2 (09:48→21:19)
[2021-10-12] MEDS: ZINC SULFATE 220 MG CAPSULE PO SCH (09:48)
[2021-10-12] MEDS: BENZONATATE 100 MG (TESSALON) CAPSULE PO SCH ×3 (09:48→21:15)
[2021-10-12] MEDS: VITAMIN D3 125 MCG (5,000 UNITS) CAPSULE PO SCH (09:48)
[2021-10-12] MEDS: OXYBUTYNIN (DITROPAN) 5 MG TAB PO SCH ×2 (09:48→21:19)
[2021-10-12] MEDS: PRASUGREL 10 MG (EFFIENT) TABLET PO SCH (09:48)
[2021-10-12] MEDS: DOCUSATE SODIUM 100 MG (COLACE) CAP PO SCH ×2 (09:48→21:15)
[2021-10-12] MEDS: SENNA W/DOCUSATE (SENOKOT S) TABLET PO SCH ×2 (09:55→21:14)
[2021-10-12] MEDS: LACTULOSE SYRUP 10GM/15ML (ENULOSE) 30ML UDC PO PRN (09:55)
--- NOTE | 2021-10-12 14:15 | Diagnostic Imaging Report ---
EXAMINATION: Right hip radiograph EXAM DATE: 10/12/2021 2:11 PM COMPARISON: None available. HISTORY: Right hip pain TECHNIQUE: 3 views FINDINGS: There is no acute fracture, dislocation, or destructive osseous process. 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 The soft tissues are normal. IMPRESSION: 1. Surgical changes of the right hip without acute osseous abnormality. Dictated by: Dictated on workstation # [id number]
[2021-10-12] MEDS: DICLOFENAC 1% GEL 100 GM (VOLTAREN) TUBE TOP SCH ×3 (15:09→21:15)
[2021-10-12] MEDS: ENOXAPARIN 40 MG/0.4 ML (LOVENOX) SYR SC SCH (15:09)
[2021-10-12 19:57] VITALS: BP 118/66
[2021-10-12] MEDS: AZITHROMYCIN 250 MG TAB (ZITHROMAX) PO SCH (21:15)
[2021-10-13] MEDS: ACETAMINOPHEN 325 MG TABLET PO PRN (06:29)
[2021-10-13] MEDS: CYANOCOBALAMIN 1,000 MCG (VITAMIN B-12) TABLET PO SCH (06:29)
[2021-10-13] MEDS: LEVOTHYROXINE 100 MCG (LEVOTHROID) TAB PO SCH (06:29)
[2021-10-13] MEDS: guaiFENesin/CODEINE (ROBITUSSIN AC) 10ML UDC PO PRN ×3 (06:29→21:42)
[2021-10-13] MEDS: MULTIVIT W/MINERALS TAB (THERAGRAN M) PO SCH (06:29)
--- NOTE | 2021-10-13 07:10 | PM&R Progress Note ---
Subjective HPI/CC On Admission Date Seen by Provider: Oct 13, 2021 Time Seen by Provider: 10:00 Subjective/Events-last exam 10/13/21: Patient ready for DC isolation at midnight tonight Cough improved Right hip pain improved 10/12/21: Out of isolation tomorrow Right hip pain continues we will get x-ray Diclofenac gel ordered Cough is improved 10/11/2021: Patient reports cough is better Feeling a lot better Slept well last night No voiding issues Bowels are moving well 10/10/2021: Pt requiring back into COVID isolation Cough is much improved Not hypoxic Bowels are moving No pain 10/09/21: Pt is doing well Moved down to rehab 229 Cough is improved with antitussives No pain is reported Walking around well Review of Systems General: Fatigue, Malaise Musculoskeletal: leg pain Objective Exam Vital Signs Vital Signs Date Time Temp Pulse Resp B/P (MAP) Pulse Ox O2 Delivery O2 Flow Rate FiO2 10/13/21 09:00 Room Air 10/13/21 07:35 36.6 62 18 130/69 (89) 99 Capillary Refill : General Appearance: No Apparent Distress, WD/WN, Chronically ill HEENT: PERRL/EOMI, Normal ENT Inspection, Pharynx Normal Neck: Full Range of Motion, Normal Inspection, Non Tender, Supple, Carotid Bruit Respiratory: Chest Non Tender, Lungs Clear, Normal Breath Sounds, No Accessory Muscle Use, No Respiratory Distress, Decreased Breath Sounds Cardiovascular: Regular Rate, Rhythm, No Edema, No Gallop, No JVD, No Murmur, Normal Peripheral Pulses Gastrointestinal: Normal Bowel Sounds, No Organomegaly, No Pulsatile Mass, Non Tender, Soft Back: Normal Inspection, No CVA Tenderness, No Vertebral Tenderness Extremity: Normal Capillary Refill, Normal Inspection, Normal Range of Motion, Non Tender, No Calf Tenderness, No Pedal Edema Neurologic/Psychiatric: Alert, Oriented x3, No Motor/Sensory Deficits, Normal Mood/Affect, Motor Weakness (generalized all ext) Skin: Normal Color, Warm/Dry Lymphatic: No Adenopathy Results/Procedures Lab Laboratory Tests 10/13/21 07:55 Patient resulted labs reviewed. FIM Transfers Therapy Code Descriptions/Definitions Functional [place] Measure: 0=Not Assessed/NA 4=Minimal Assistance 1=Total Assistance 5=Supervision or Setup 2=Maximal Assistance 6=Modified [place] 3=Moderate Assistance 7=Complete IndependenceSCALE: Activities may be completed with or without assistive devices. 6-Khvpncxkei-gtnpcrf completes the activity by him/herself with no assistance from a helper. 5-Set-up or Clean-up Assistance-helper sets up or cleans up; patient completes activity. [place] assists only prior to or following the activity. 4-Supervision or Touching Assistance-helper provides verbal cues and/or touching/steadying and/or contact guard assistance as patient completes activity. Assistance may be provided throughout the activity or intermittently. 3-Partial/Moderate Assistance-helper does LESS THAN HALF the effort. [place] lifts, holds or supports trunk or limbs, but provides less than half the effort. 2-Substantial/Maximal Assistance-helper does MORE THAN HALF the effort. [place] lifts or holds trunk or limbs and provides more than half the effort. 3-Hiuoclczu-gudtie does ALL the effort. Patient does none of the effort to complete the activity. Or, the assistance of 2 or more helpers is required for the patient to complete the activity. If activity was not attempted, code reason: 7-Patient Refused. 9-Not Applicable-not attempted and the patient did not perform the activity before the current illness, exacerbation or injury. 10-Not Attempted due to Environmental Limitations-(lack of equipment, weather restraints, etc.). 88-Not Attempted due to Medical Conditions or Safety Concerns. Roll Left to Right (QC): 6 Sit to Lying (QC): 6 Sit to Stand (QC): 6 Chair/Fun-kx-Hkidg Xfer(QC): 6 Car Transfer (QC): 4 Gait Training Does the Patient Walk?: Yes Walk 10 feet (QC): 6 Walk 50 ft with 2 Turns(QC): 6 Walk 150 ft (QC): 6 Walking 10ft/uneven surface-QC: 4 Gait Persons Needed: 1 Gait Assistive Device: FWW Wheelchair Training Wheel 50 ft with 2 turns (QC): 9 Wheel 150 ft (QC): 9 Stair Training Stair Training: Handrails/: 2 handrails #of Steps: 8 1 Step (curb) (QC): 4 4 Steps (QC): 4 12 Steps (QC): 88 Stairs: Pattern: Step to Balance Picking up an Object (QC): 6 ADL-Treatment Eating (QC): 6 Oral Hygiene (QC): 6 Shower/Bathe Self (QC): 6 Upper Body Dressing (QC): 6 Lower Body Dressing (QC): 6 On/Off Footwear (QC): 6 Toileting Hygiene (QC): 6 Toilet Transfer (QC): 6 Assessment/Plan Assessment and Plan Assess & Plan/Chief Complaint None assessment: COVID 19 weakness Cough Bacterial bronchitis s/p urinary retention CAD HLP HTN Plan: Rehab protocol Azithromycin IS 10/09/21: Monitor closely PT OT 10/10/21: Monitor closely COVID isolation 10/11/2021: Robitussin-DM Supportive care Monitor closely 10/12/21: Right hip x-ray Supportive care 10/13/21: PT OT Improved (1) COVID-19 (2) Generalized weakness (3) Weakness GELY AMAYA DO Oct 13, 2021 07:10
[2021-10-13 07:35] VITALS: BP 130/69
[2021-10-13 08:07] LABS: BASOPHILS % (AUTO) 1 % (0-10); EOSINOPHILS # (AUTO) 0.3 10^3/uL (0.0-0.3); EOSINOPHILS % (AUTO) 5 % (0-10); HEMATOCRIT 37 % (40-54); HEMOGLOBIN 12.1 g/dL (13.3-17.7); LYMPHOCYTES # (AUTO) 1.1 10^3/uL (1.0-4.0); LYMPHOCYTES % (AUTO) 18 % (12-44); MEAN CORPUSCULAR HEMOGLOBIN 32 pg (25-34); MEAN CORPUSCULAR HGB CONC 33 g/dL (32-36); MEAN CORPUSCULAR VOLUME 98 fL (80-99); MEAN PLATELET VOLUME 9.7 fL (9.0-12.2); MONOCYTES # (AUTO) 0.6 10^3/uL (0.0-1.0); MONOCYTES % (AUTO) 9 % (0-12); NEUTROPHILS % (AUTO) 67 % (42-75); PLATELET COUNT 280 10^3/uL (130-400)
[2021-10-13 08:22] LABS: ALBUMIN 3.6 GM/DL (3.2-4.5); BILIRUBIN,TOTAL 0.6 MG/DL (0.1-1.0); CALCIUM 9.1 MG/DL (8.5-10.1); CREATININE SERUM 0.8 MG/DL (0.60-1.30); POTASSIUM 4.2 MMOL/L (3.6-5.0); TOTAL PROTEIN 7.3 GM/DL (6.4-8.2)
[2021-10-13] MEDS: BENZONATATE 100 MG (TESSALON) CAPSULE PO SCH ×3 (08:46→21:38)
[2021-10-13] MEDS: SENNA W/DOCUSATE (SENOKOT S) TABLET PO SCH ×2 (08:46→21:38)
[2021-10-13] MEDS: VITAMIN D3 125 MCG (5,000 UNITS) CAPSULE PO SCH (08:46)
[2021-10-13] MEDS: DOCUSATE SODIUM 100 MG (COLACE) CAP PO SCH ×2 (08:46→21:38)
[2021-10-13] MEDS: PRASUGREL 10 MG (EFFIENT) TABLET PO SCH (08:46)
[2021-10-13] MEDS: ZINC SULFATE 220 MG CAPSULE PO SCH (08:46)
[2021-10-13] MEDS: ASCORBIC ACID (VIT C) 500 MG TABLET PO SCH (08:46)
[2021-10-13] MEDS: polyethylene glycoL POWDER 17 GM (MIRALAX) PACK PO SCH ×2 (08:47→19:52)
[2021-10-13] MEDS: LACTULOSE SYRUP 10GM/15ML (ENULOSE) 30ML UDC PO PRN (08:47)
[2021-10-13] MEDS: DICLOFENAC 1% GEL 100 GM (VOLTAREN) TUBE TOP SCH ×4 (08:52→21:48)
[2021-10-13] MEDS: OXYBUTYNIN (DITROPAN) 5 MG TAB PO SCH ×2 (08:52→21:38)
--- NOTE | 2021-10-13 09:58 | Occupational Ther Daily Note ---
OT Current Status-Daily Note Subjective Pt reports pain at R hip, RN aware. Topical gel applied post shower. Appearance Pt left sitting in recliner, all needs within reach. Mental Status/Objective Patient Orientation: Person, Place, Situation ADL-Treatment Therapy Code Descriptions/Definitions Functional [place] Measure: 0=Not Assessed/NA 4=Minimal Assistance 1=Total Assistance 5=Supervision or Setup 2=Maximal Assistance 6=Modified [place] 3=Moderate Assistance 7=Complete IndependenceSCALE: Activities may be completed with or without assistive devices. 0-Mjkwvhmvou-razwacb completes the activity by him/herself with no assistance from a helper. 5-Set-up or Clean-up Assistance-helper sets up or cleans up; patient completes activity. [place] assists only prior to or following the activity. 4-Supervision or Touching Assistance-helper provides verbal cues and/or touching/steadying and/or contact guard assistance as patient completes activity. Assistance may be provided throughout the activity or intermittently. 3-Partial/Moderate Assistance-helper does LESS THAN HALF the effort. [place] lifts, holds or supports trunk or limbs, but provides less than half the effort. 2-Substantial/Maximal Assistance-helper does MORE THAN HALF the effort. [place] lifts or holds trunk or limbs and provides more than half the effort. 3-Xbaeqacxt-cgwxjb does ALL the effort. Patient does none of the effort to complete the activity. Or, the assistance of 2 or more helpers is required for the patient to complete the activity. If activity was not attempted, code reason: 7-Patient Refused. 9-Not Applicable-not attempted and the patient did not perform the activity before the current illness, exacerbation or injury. 10-Not Attempted due to Environmental Limitations-(lack of equipment, weather restraints, etc.). 88-Not Attempted due to Medical Conditions or Safety Concerns. Eating (QC): 6 Oral Hygiene (QC): 6 Shower/Bathe Self (QC): 6 Upper Body Dressing (QC): 6 Lower Body Dressing (QC): 6 On/Off Footwear: 6 Toileting Hygiene (QC): 6 Toilet Transfer (QC): 6 Pt retrieved clothing and set up shower independently. He was able to reach all body parts in sitting/standing, no LOB or cues for safety required. Clothing donned seated on edge of shower bench. Slight improvement in speed notable this date, continues to need short breaks due to coughing episodes. Reminders on energy conservation strategies including purchase of shower chair. Other Treatment Pt participated in theraband exercises with red (moderate) band. Improved shoulder range notable this session; ~150 degrees. Tactile and verbal cues for correct form. 2x12 all planes. Short rest breaks needed throughout exercises secondary to fatigue. Pt participated in several dynamic standing activities with focus on reducing UE support, improving balance, UE ROM, body mechanics and overall strength and endurance needed for functional tasks. Pt transferred different weighted items (up to 3 pounds) from overhead shelf to low shelf. Initially, pt requires single UE support, but improves to no support after several reps and cues for improved body mechanics (including using legs vs back and widen BALDEV). Pt then transferred large water filled basin (1/2 filled) from one surface to another. Distance be tween surfaces increased with time. When distance became further than 5 feet, cues needed to take 1-2 larger steps as pt has tendency to shuffle feet in a [place]. Cues at torso to rotate. Education OT Patient Education: Correct positioning, Energy conservation, Exercise program, Modified ADL techniques, Progress toward Goal/Update tx plan, Purpose of tx/functional activities, Transfer techniques Teaching Recipient: Patient Teaching Methods: Demonstration, Discussion Response to Teaching: Verbalize Understanding, Return Demonstration OT Short Term Goals Short Term Goals Time Frame: Oct 15, 2021 Eatin Oral hygiene: 5 Toileting hygiene: 6 Shower/bathe self: 4 Upper body dressin Lower body dressin Putting on/taking off footwear: 5 OT Senior Treasury Consultant Goals Alf Goals Time Frame: Oct 21, 2021 Eating (QC): 6 Oral Hygiene (QC): 6 Toileting Hygiene (QC): 6 Shower/Bathe Self (QC): 5 Upper Body Dressing (QC): 6 Lower Body Dressing (QC): 6 On/Off Footwear (QC): 6 1=Demonstrate adherence to instructed precautions during ADL tasks. 2=Patient will verbalize/demonstrate understanding of assistive devices/modifications for ADL. 3=Patient will improve strength/tolerance for activity to enable patient to perform ADL's. OT Education/Plan Problem List/Assessment Assessment: Decreased Activ Tolerance, Decreased UE Strength, Impaired I ADL's, Restricted Funct UE ROM Discharge Recommendations Plan/Recommendations: Continue POC Treatment Plan/Plan of Care Treatment,Training & Education: Yes Patient would benefit from OT for education, treatment and training to promote independence in ADL's, mobility, safety and/or upper extremity function for ADL's. Plan of Care: ADL Retraining, Cognitive Retraining, Functional Mobility, Group Exercise/Act as Ind, UE Funct Exercise/Act Treatment Duration: Oct 21, 2021 Frequency: At least 5 of 7 days/Wk (IRF) Estimated Hrs Per Day: 1.5 hours per day (75-90 min/day ) Agreement: Yes Rehab Potential: Good Time/GCodes Start Time: 08:30 Stop Time: 10:00 Total Time Billed (hr/min): 90 Billed Treatment Time 1 visit ADL x3 (40 min) EX x2 (30 min) FA (20 min) Gabby Burkett OT Oct 13, 2021 09:58
--- NOTE | 2021-10-13 11:03 | Physical Therapy Daily Note ---
PT Daily Note-Current Subjective Pt sitting in recliner with mask on upon arrival. Pt agrees to PT. Pain Numeric Pain Scale: 5-Moderate Pain Location: Right Location Body Site: Hip Pain Description: Ache Comment: Reports pain from hip to knee mannie. w/Weight Bearing Mental Status Patient Orientation: Person, Place, Time, Situation Transfers SCALE: Activities may be completed with or without assistive devices. 5-[place]pbg[place]-nheuniy completes the activity by him/herself with no assistance from a helper. 5-Set-up or Clean-up Assistance-helper sets up or cleans up; patient completes activity. [place] assists only prior to or following the activity. 4-Supervision or Touching Assistance-helper provides verbal cues and/or touching/steadying and/or contact guard assistance as patient completes activity. Assistance may be provided throughout the activity or intermittently. 3-Partial/Moderate Assistance-helper does LESS THAN HALF the effort. [place] lifts, holds or supports trunk or limbs, but provides less than half the effort. 2-Substantial/Maximal Assistance-helper does MORE THAN HALF the effort. [place] lifts or holds trunk or limbs and provides more than half the effort. 3-Dpqudfybh-rsbeqy does ALL the effort. Patient does none of the effort to complete the activity. Or, the assistance of 2 or more helpers is required for the patient to complete the activity. If activity was not attempted, code reason: 7-Patient Refused. 9-Not Applicable-not attempted and the patient did not perform the activity before the current illness, exacerbation or injury. 10-Not Attempted due to Environmental Limitations-(lack of equipment, weather restraints, etc.). 88-Not Attempted due to Medical Conditions or Safety Concerns. Sit to Stand (QC): 6 Weight Bearing Full Weight Bearing Full Weight Bearing Gait Training Does the Patient Walk?: Yes Distance: 25' x2 Walk 10 feet (QC): 5 Gait Assistive Device: FWW Exercises Supine Ex: Ankle pumps, Quad Set, Heel Slides, Straight leg raise, Hip abd/add Supine Reps: 20 Seated Therapy Exercises: Ankle pumps, Long arc quads, Hip flexion, Hip abd/add, Glut set Seated Reps: 20 Treatments Pt completes Supine & Seated Ex with RB. Pt amb. in room due to still under Isolation at this time. Pt asks about AD for home FWW vs 4WW and where to in stall grab bars for shower. Pt resting in recliner at end of tx w/all needs met, call light in hand. Assessment Current Status: Good Progress Pt is limited by being in Isolation at this time. Pt still needs RB due to fat igue and reports pain in R hip with WB. PT Short Term Goals Short Term Goals Time Frame: Oct 15, 2021 Roll Left & Right: 6 Sit to lyin (SBA) Lying to sitting on side of be: 4 (SBA) Sit to stand: 4 (SBA) Chair/iwt-yj-jvrfk transfer: 5 Walk 10 feet: 5 Walk 50 feet with two turns: 5 Walk 150 feet: 5 PT Astrochemist Goals Astrochemist Goals PT Astrochemist Goals Time Frame: Oct 29, 2021 Roll Left & Right (QC): 6 Sit to Lying (QC): 6 Lying-Sitting on Side/Bed(QC): 6 Sit to Stand (QC): 6 Chair/Uek-ut-Gfggh Xfer(QC): 6 Toilet Transfer (QC): 6 Car Transfer (QC): 6 Does the Patient Walk: Yes Walk 10 feet (QC): 6 Walk 50ft with 2 Turns (QC): 6 Walk 150 ft (QC): 6 Walking 10ft on Uneven Surface: 6 1 Step (curb) (QC): 6 4 Steps (QC): 6 12 Steps (QC): 6 Picking up an Object (QC): 6 Wheel 50 feet with 2 turns (QC: 9 Wheel 150 feet: 9 PT Plan Problem List Problem List: Activity Tolerance Treatment/Plan Treatment Plan: Continue Plan of Care Treatment Plan: Bed Mobility, Education, Functional Activity Cari, Functional Strength, Group Therapy, Gait, Safety, Therapeutic Exercise, Transfers Treatment Duration: Oct 29, 2021 Frequency: At least 5 of 7 days/Wk (IRF) Estimated Hrs Per Day: 1.5 hours per day Patient and/or Family Agrees t: Yes Safety Risks/Education Patient Education: Correct Positioning, Safety Issues Teaching Recipient: Patient Teaching Methods: Discussion Response to Teaching: Verbalize Understanding Time/GCodes Time In: 1000 Time Out: 1100 Total Billed Treatment Time: 60 Total Billed Treatment 1, EX x2 (30m), GT (15m) & FA (15m) SHASTA SPICER OCCUPATIONAL HYGIENIST Oct 13, 2021 11:02
[2021-10-13] MEDS: ENOXAPARIN 40 MG/0.4 ML (LOVENOX) SYR SC SCH (14:07)
--- NOTE | 2021-10-13 15:14 | Physical Therapy Daily Note ---
PT Daily Note-Current Subjective Pt sitting in recliner upon arrival. Pt agrees to PT. Pt still on Isolation at this time. Pain Numeric Pain Scale: 5-Moderate Pain Location: Right Location Body Site: Hip Pain Description: Ache Comment: Hip to knee pain increase w/Weight Bearing Mental Status Patient Orientation: Person, Place, Time, Situation Transfers SCALE: Activities may be completed with or without assistive devices. 9-Mczzcvwnft-eixblgh completes the activity by him/herself with no assistance from a helper. 5-Set-up or Clean-up Assistance-helper sets up or cleans up; patient completes activity. [place] assists only prior to or following the activity. 4-Supervision or Touching Assistance-helper provides verbal cues and/or touching/steadying and/or contact guard assistance as patient completes activity. Assistance may be provided throughout the activity or intermittently. 3-Partial/Moderate Assistance-helper does LESS THAN HALF the effort. [place] lifts, holds or supports trunk or limbs, but provides less than half the effort. 2-Substantial/Maximal Assistance-helper does MORE THAN HALF the effort. [place] lifts or holds trunk or limbs and provides more than half the effort. 0-Aqspbkkdu-puxhhv does ALL the effort. Patient does none of the effort to comp lete the activity. Or, the assistance of 2 or more helpers is required for the patient to complete the activity. If activity was not attempted, code reason: 7-Patient Refused. 9-Not Applicable-not attempted and the patient did not perform the activity before the current illness, exacerbation or injury. 10-Not Attempted due to Environmental Limitations-(lack of equipment, weather restraints, etc.). 88-Not Attempted due to Medical Conditions or Safety Concerns. Sit to Stand (QC): 6 Weight Bearing Full Weight Bearing Full Weight Bearing Gait Training Does the Patient Walk?: Yes Distance: 25' x4 Walk 10 feet (QC): 5 Walk 50 ft with 2 Turns(QC): 5 Gait Assistive Device: FWW Exercises Supine Ex: Ankle pumps, Quad Set, Glut sets, Heel Slides, Short Arc Quads, Hip abd/add Supine Reps: 20 Seated Therapy Exercises: Ankle pumps, Long arc quads, Hip flexion, Hip abd/add Seated Reps: 15 Treatments Pt stands from recliner and amb. in room before taking RB. PT issues & reviews written HEP for Supine & Seated Ex. Pt returns to recliner to rest. All needs met, call light in hand. Assessment Current Status: Good Progress Pt reports pain increase w/WB. PT Short Term Goals Short Term Goals Time Frame: Oct 15, 2021 Roll Left & Right: 6 Sit to lyin (SBA) Lying to sitting on side of be: 4 (SBA) Sit to stand: 4 (SBA) Chair/cey-vj-pydzp transfer: 5 Walk 10 feet: 5 Walk 50 feet with two turns: 5 Walk 150 feet: 5 PT [place] Operator Goals Half-Way Goals PT Half-Way Goals Time Frame: Oct 29, 2021 Roll Left & Right (QC): 6 Sit to Lying (QC): 6 Lying-Sitting on Side/Bed(QC): 6 Sit to Stand (QC): 6 Chair/Jzr-uo-Gbxyk Xfer(QC): 6 Toilet Transfer (QC): 6 Car Transfer (QC): 6 Does the Patient Walk: Yes Walk 10 feet (QC): 6 Walk 50ft with 2 Turns (QC): 6 Walk 150 ft (QC): 6 Walking 10ft on Uneven Surface: 6 1 Step (curb) (QC): 6 4 Steps (QC): 6 12 Steps (QC): 6 Picking up an Object (QC): 6 Wheel 50 feet with 2 turns (QC: 9 Wheel 150 feet: 9 PT Plan Treatment/Plan Treatment Plan: Continue Plan of Care Treatment Plan: Bed Mobility, Education, Functional Activity Cari, Functional Strength, Group Therapy, Gait, Safety, Therapeutic Exercise, Transfers Treatment Duration: Oct 29, 2021 Frequency: At least 5 of 7 days/Wk (IRF) Estimated Hrs Per Day: 1.5 hours per day Patient and/or Family Agrees t: Yes Safety Risks/Education Patient Education: Transfer Techniques, Correct Positioning Teaching Recipient: Patient Teaching Methods: Discussion Response to Teaching: Verbalize Understanding Time/GCodes Time In: 1400 Time Out: 1430 Total Billed Treatment Time: 30 Total Billed Treatment 1, GT (15m) & EX (15m) SHASTA SPICER CLASSROOM TECHNOLOGY COACH Oct 13, 2021 15:13
--- NOTE | 2021-10-13 18:43 | Physician Query Clarification ---
PQ-Further Specificity Admission/Discharge Admission Date: Oct 08, 2021 at 13:19 Discharge Date: The medical record reflects the following clinical scenario: History/Risk Factors: COVID Clinical Findings: Covid weakness, resolving pneumonia Treatment: PT, OT, antibiotics Question: Can you further specify reason for IRF admission per the clinical indicators above? Please document a response in the Progress Notes or Discharge Summary. 1. 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 Other, with explanation of the clinical findings. 4. Clinically undetermined, no explanation for the clinical findings. PM&R Medical Assessment & Plan REHAB/MEDICAL ASSESSMENT AND PLAN: REHAB IMPAIRMENT GROUP: COVID myopathy ETIOLOGIC DIAGNOSIS: COVID The comorbidities that impact the patients function and/or functional outcome by: advanced age, CAD, Recent urinary retention, COVID PHYSICIAN RESPONSE Can you specify per above: 2 In responding to this query, please exercise your independent professional judgment. The purpose of this communication is to more accurately reflect the complexity of your patients condition. The fact that a question is asked does not imply that any particular answer is desired or expected. Thank you for your timely response to this clarification. Requestors name: Ngozi THIS PHYSICIAN QUERY FORM IS A PERMANENT PART OF THE MEDICAL RECORD NGOZI JUAREZ Oct 13, 2021 18:43 GELY AMAYA DO Oct 13, 2021 19:34
[2021-10-13 20:10] VITALS: BP 146/77
[2021-10-13] MEDS: AZITHROMYCIN 250 MG TAB (ZITHROMAX) PO SCH (21:38)
[2021-10-14] MEDS: guaiFENesin/CODEINE (ROBITUSSIN AC) 10ML UDC PO PRN ×3 (01:50→21:03)
--- NOTE | 2021-10-14 05:46 | PM&R Progress Note ---
Subjective HPI/CC On Admission Date Seen by Provider: Oct 14, 2021 Time Seen by Provider: 11:00 Subjective/Events-last exam 10/14/21: Pt is out of isolation Bowels haven't moved for 5 days, so we'll get a suppository No other concerns 10/13/21: Patient ready for DC isolation at midnight tonight Cough improved Right hip pain improved 10/12/21: Out of isolation tomorrow Right hip pain continues we will get x-ray Diclofenac gel ordered Cough is improved 10/11/2021: Patient reports cough is better Feeling a lot better Slept well last night No voiding issues Bowels are moving well 10/10/2021: Pt requiring back into COVID isolation Cough is much improved Not hypoxic Bowels are moving No pain 10/09/21: Pt is doing well Moved down to rehab 229 Cough is improved with antitussives No pain is reported Walking around well Review of Systems General: Fatigue, Malaise Pulmonary: Cough Objective Exam Vital Signs Vital Signs Date Time Temp Pulse Resp B/P (MAP) Pulse Ox O2 Delivery O2 Flow Rate FiO2 10/14/21 20:10 Room Air 10/14/21 20:07 36.6 63 20 116/55 (75) 97 Capillary Refill : General Appearance: No Apparent Distress, WD/WN, Chronically ill HEENT: PERRL/EOMI, Normal ENT Inspection, Pharynx Normal Neck: Full Range of Motion, Normal Inspection, Non Tender, Supple, Carotid Bruit Respiratory: Chest Non Tender, Lungs Clear, Normal Breath Sounds, No Accessory Muscle Use, No Respiratory Distress, Decreased Breath Sounds Cardiovascular: Regular Rate, Rhythm, No Edema, No Gallop, No JVD, No Murmur, Normal Peripheral Pulses Gastrointestinal: Normal Bowel Sounds, No Organomegaly, No Pulsatile Mass, Non Tender, Soft Back: Normal Inspection, No CVA Tenderness, No Vertebral Tenderness Extremity: Normal Capillary Refill, Normal Inspection, Normal Range of Motion, Non Tender, No Calf Tenderness, No Pedal Edema Neurologic/Psychiatric: Alert, Oriented x3, No Motor/Sensory Deficits, Normal Mood/Affect, Motor Weakness (generalized all ext) Skin: Normal Color, Warm/Dry Lymphatic: No Adenopathy Results/Procedures Lab Patient resulted labs reviewed. FIM Transfers Therapy Code Descriptions/Definitions Functional [place] Measure: 0=Not Assessed/NA 4=Minimal Assistance 1=Total Assistance 5=Supervision or Setup 2=Maximal Assistance 6=Modified [place] 3=Moderate Assistance 7=Complete IndependenceSCALE: Activities may be completed with or without assistive devices. 0-Mtcdtscrgk-yczduaq completes the activity by him/herself with no assistance from a helper. 5-Set-up or Clean-up Assistance-helper sets up or cleans up; patient completes activity. [place] assists only prior to or following the activity. 4-Supervision or Touching Assistance-helper provides verbal cues and/or touching/steadying and/or contact guard assistance as patient completes activity. Assistance may be provided throughout the activity or intermittently. 3-Partial/Moderate Assistance-helper does LESS THAN HALF the effort. [place] lifts, holds or supports trunk or limbs, but provides less than half the effort. 2-Substantial/Maximal Assistance-helper does MORE THAN HALF the effort. [place] lifts or holds trunk or limbs and provides more than half the effort. 0-Vmlzwlgtb-rqwuvj does ALL the effort. Patient does none of the effort to complete the activity. Or, the assistance of 2 or more helpers is required for the patient to complete the activity. If activity was not attempted, code reason: 7-Patient Refused. 9-Not Applicable-not attempted and the patient did not perform the activity before the current illness, exacerbation or injury. 10-Not Attempted due to Environmental Limitations-(lack of equipment, weather restraints, etc.). 88-Not Attempted due to Medical Conditions or Safety Concerns. Roll Left to Right (QC): 6 Sit to Lying (QC): 6 Sit to Stand (QC): 6 Chair/Szx-lx-Kqpwt Xfer(QC): 6 Car Transfer (QC): 4 Gait Training Does the Patient Walk?: Yes Distance: 25' x4 Walk 10 feet (QC): 5 Walk 50 ft with 2 Turns(QC): 5 Walk 150 ft (QC): 6 Walking 10ft/uneven surface-QC: 4 Gait Persons Needed: 1 Gait Assistive Device: FWW Wheelchair Training Wheel 50 ft with 2 turns (QC): 9 Wheel 150 ft (QC): 9 Stair Training Stair Training: Handrails/: 2 handrails #of Steps: 8 1 Step (curb) (QC): 4 4 Steps (QC): 4 12 Steps (QC): 88 Stairs: Pattern: Step to Balance Picking up an Object (QC): 6 ADL-Treatment Eating (QC): 6 Oral Hygiene (QC): 6 Shower/Bathe Self (QC): 6 Upper Body Dressing (QC): 6 Lower Body Dressing (QC): 6 On/Off Footwear (QC): 6 Toileting Hygiene (QC): 6 Toilet Transfer (QC): 6 Assessment/Plan Assessment and Plan Assess & Plan/Chief Complaint None assessment: COVID 19 weakness Cough Bacterial bronchitis s/p urinary retention CAD HLP HTN Plan: Rehab protocol Azithromycin IS 10/09/21: Monitor closely PT OT 10/10/21: Monitor closely COVID isolation 10/11/2021: Robitussin-DM Supportive care Monitor closely 10/12/21: Right hip x-ray Supportive care 10/13/21: PT OT Improved 10/14/21: Monitor closely (1) COVID-19 (2) Generalized weakness (3) Weakness GELY AMAYA DO Oct 14, 2021 05:46
[2021-10-14] MEDS: CYANOCOBALAMIN 1,000 MCG (VITAMIN B-12) TABLET PO SCH (06:15)
[2021-10-14] MEDS: LEVOTHYROXINE 100 MCG (LEVOTHROID) TAB PO SCH (06:16)
[2021-10-14] MEDS: MULTIVIT W/MINERALS TAB (THERAGRAN M) PO SCH (06:16)
[2021-10-14 07:28] VITALS: BP 138/71
[2021-10-14] MEDS: ZINC SULFATE 220 MG CAPSULE PO SCH (08:14)
[2021-10-14] MEDS: PRASUGREL 10 MG (EFFIENT) TABLET PO SCH (08:14)
[2021-10-14] MEDS: DOCUSATE SODIUM 100 MG (COLACE) CAP PO SCH ×2 (08:15→21:02)
[2021-10-14] MEDS: VITAMIN D3 125 MCG (5,000 UNITS) CAPSULE PO SCH (08:15)
[2021-10-14] MEDS: ASCORBIC ACID (VIT C) 500 MG TABLET PO SCH (08:15)
[2021-10-14] MEDS: polyethylene glycoL POWDER 17 GM (MIRALAX) PACK PO SCH ×2 (08:15→19:36)
[2021-10-14] MEDS: BENZONATATE 100 MG (TESSALON) CAPSULE PO SCH ×3 (08:15→21:02)
[2021-10-14] MEDS: SENNA W/DOCUSATE (SENOKOT S) TABLET PO SCH ×2 (08:15→21:03)
[2021-10-14] MEDS: ACETAMINOPHEN 325 MG TABLET PO PRN ×2 (08:16→15:07)
[2021-10-14] MEDS: OXYBUTYNIN (DITROPAN) 5 MG TAB PO SCH ×2 (08:16→21:03)
--- NOTE | 2021-10-14 09:30 | Occupational Ther Daily Note ---
OT Current Status-Daily Note Subjective Reports L hip feels better today Appearance Pt returned to sitting in recliner, all needs within reach Mental Status/Objective Patient Orientation: Person, Place, Situation ADL-Treatment Therapy Code Descriptions/Definitions Functional [place] Measure: 0=Not Assessed/NA 4=Minimal Assistance 1=Total Assistance 5=Supervision or Setup 2=Maximal Assistance 6=Modified [place] 3=Moderate Assistance 7=Complete IndependenceSCALE: Activities may be completed with or without assistive devices. 3-Qskudybuko-ajrkxof completes the activity by him/herself with no assistance from a helper. 5-Set-up or Clean-up Assistance-helper sets up or cleans up; patient completes activity. [place] assists only prior to or following the activity. 4-Supervision or Touching Assistance-helper provides verbal cues and/or touching/steadying and/or contact guard assistance as patient completes activity. Assistance may be provided throughout the activity or intermittently. 3-Partial/Moderate Assistance-helper does LESS THAN HALF the effort. [place] lifts, holds or supports trunk or limbs, but provides less than half the effort. 2-Substantial/Maximal Assistance-helper does MORE THAN HALF the effort. [place] lifts or holds trunk or limbs and provides more than half the effort. 1-Wwnkhcruc-mcfpav does ALL the effort. Patient does none of the effort to complete the activity. Or, the assistance of 2 or more helpers is required for the patient to complete the activity. If activity was not attempted, code reason: 7-Patient Refused. 9-Not Applicable-not attempted and the patient did not perform the activity before the current illness, exacerbation or injury. 10-Not Attempted due to Environmental Limitations-(lack of equipment, weather restraints, etc.). 88-Not Attempted due to Medical Conditions or Safety Concerns. Oral Hygiene (QC): 6 Upper Body Dressing (QC): 6 Lower Body Dressing (QC): 6 On/Off Footwear: 6 Toileting Hygiene (QC): 6 Toilet Transfer (QC): 6 Pt retrieved clothing and donned without assistance. Continues to need extra time due to coughing spells and slow movements. Grooming tasks performed in standing, no unsteadiness observed. Other Treatment Pt ambulated to/from therapy gym, >100 feet with SBA and use of walker. Cues to keep walker on floor and to take bigger steps as pt often shuffles feet. While seated, pt participated in shoulder pulleys with focus on improving shoulder AROM and strength for adls. Movements included shoulder flexion, abduction, and upward punches. 2x15 each. Active shoulder range improved to ~170 degrees post activity. Education OT Patient Education: Correct positioning, Energy conservation, Exercise program, Progress toward Goal/Update tx plan, Purpose of tx/functional activities, Safety issues Teaching Recipient: Patient Teaching Methods: Demonstration, Discussion Response to Teaching: Verbalize Understanding, Return Demonstration OT Short Term Goals Short Term Goals Time Frame: Oct 15, 2021 Eatin Oral hygiene: 5 Toileting hygiene: 6 Shower/bathe self: 4 Upper body dressin Lower body dressin Putting on/taking off footwear: 5 OT Home Health Aide Goals Home Health Aide Goals Time Frame: Oct 21, 2021 Eating (QC): 6 Oral Hygiene (QC): 6 Toileting Hygiene (QC): 6 Shower/Bathe Self (QC): 5 Upper Body Dressing (QC): 6 Lower Body Dressing (QC): 6 On/Off Footwear (QC): 6 1=Demonstrate adherence to instructed precautions during ADL tasks. 2=Patient will verbalize/demonstrate understanding of assistive devices/modifications for ADL. 3=Patient will improve strength/tolerance for activity to enable patient to per form ADL's. OT Education/Plan Problem List/Assessment Assessment: Decreased Activ Tolerance, Decreased UE Strength, Impaired I ADL's, Restricted Funct UE ROM Discharge Recommendations Plan/Recommendations: Continue POC Therapy Discharge Recommendati: Home & Family Treatment Plan/Plan of Care Treatment,Training & Education: Yes Patient would benefit from OT for education, treatment and training to promote independence in ADL's, mobility, safety and/or upper extremity function for ADL's. Plan of Care: ADL Retraining, Cognitive Retraining, Functional Mobility, Group Exercise/Act as Ind, UE Funct Exercise/Act Treatment Duration: Oct 21, 2021 Frequency: At least 5 of 7 days/Wk (IRF) Estimated Hrs Per Day: 1.5 hours per day (75-90 min/day ) Agreement: Yes Rehab Potential: Good Time/GCodes Start Time: 08:25 Stop Time: 09:30 Total Time Billed (hr/min): 65 Billed Treatment Time 1 visit ADL x3 (45 min) EX (20 min) Gabby Burkett OT Oct 14, 2021 09:30
[2021-10-14] MEDS: DICLOFENAC 1% GEL 100 GM (VOLTAREN) TUBE TOP SCH ×4 (11:13→21:04)
--- NOTE | 2021-10-14 11:55 | Occupational Ther Daily Note ---
OT Current Status-Daily Note Subjective Pt reports he plays cards with friends every other . Appearance Pt returned to sitting in recliner, all needs within reach. Mental Status/Objective Patient Orientation: Person, Place, Situation ADL-Treatment Therapy Code Descriptions/Definitions Functional [place] Measure: 0=Not Assessed/NA 4=Minimal Assistance 1=Total Assistance 5=Supervision or Setup 2=Maximal Assistance 6=Modified [place] 3=Moderate Assistance 7=Complete IndependenceSCALE: Activities may be completed with or without assistive devices. 7-Zhwnseaxdq-mwrprpm completes the activity by him/herself with no assistance from a helper. 5-Set-up or Clean-up Assistance-helper sets up or cleans up; patient completes activity. [place] assists only prior to or following the activity. 4-Supervision or Touching Assistance-helper provides verbal cues and/or touching/steadying and/or contact guard assistance as patient completes activity. Assistance may be provided throughout the activity or intermittently. 3-Partial/Moderate Assistance-helper does LESS THAN HALF the effort. [place] lifts, holds or supports trunk or limbs, but provides less than half the effort. 2-Substantial/Maximal Assistance-helper does MORE THAN HALF the effort. [place] lifts or holds trunk or limbs and provides more than half the effort. 9-Vcisrmlfr-ipxeli does ALL the effort. Patient does none of the effort to complete the activity. Or, the assistance of 2 or more helpers is required for the patient to complete the activity. If activity was not attempted, code reason: 7-Patient Refused. 9-Not Applicable-not attempted and the patient did not perform the activity before the current illness, exacerbation or injury. 10-Not Attempted due to Environmental Limitations-(lack of equipment, weather restraints, etc.). 88-Not Attempted due to Medical Conditions or Safety Concerns. Other Treatment Pt's interest (cards) drove selection of activity. Pt participated in novel card game, focus on promoting increased activity tolerance, endurance, and posture needed for functional tasks. Activity completed in standing, no LOB or unsteadiness exhibited. Good standing tolerance. Min cues for upright posture, poor maintenance. Min verbal cues for strategic game play and rules of game. Education OT Patient Education: Correct positioning, Purpose of tx/functional activities Teaching Recipient: Patient Teaching Methods: Discussion Response to Teaching: Verbalize Understanding, Return Demonstration, Reinforcement Needed OT Short Term Goals Short Term Goals Time Frame: Oct 15, 2021 Eatin Oral hygiene: 5 Toileting hygiene: 6 Shower/bathe self: 4 Upper body dressin Lower body dressin Putting on/taking off footwear: 5 OT Longterm Goals Agronomy Teacher Goals Time Frame: Oct 21, 2021 Eating (QC): 6 Oral Hygiene (QC): 6 Toileting Hygiene (QC): 6 Shower/Bathe Self (QC): 5 Upper Body Dressing (QC): 6 Lower Body Dressing (QC): 6 On/Off Footwear (QC): 6 1=Demonstrate adherence to instructed precautions during ADL tasks. 2=Patient will verbalize/demonstrate understanding of assistive devices/mod ifications for ADL. 3=Patient will improve strength/tolerance for activity to enable patient to perform ADL's. OT Education/Plan Problem List/Assessment Assessment: Decreased Activ Tolerance, Decreased UE Strength, Impaired I ADL's Discharge Recommendations Plan/Recommendations: Continue POC Treatment Plan/Plan of Care Treatment,Training & Education: Yes Patient would benefit from OT for education, treatment and training to promote independence in ADL's, mobility, safety and/or upper extremity function for ADL's. Plan of Care: ADL Retraining, Cognitive Retraining, Functional Mobility, Group Exercise/Act as Ind, UE Funct Exercise/Act Treatment Duration: Oct 21, 2021 Frequency: At least 5 of 7 days/Wk (IRF) Estimated Hrs Per Day: 1.5 hours per day (75-90 min/day ) Agreement: Yes Rehab Potential: Good Time/GCodes Start Time: 11:20 Stop Time: 11:45 Total Time Billed (hr/min): 25 Billed Treatment Time 1 visit Gabby Garcia OT Oct 14, 2021 11:55
--- NOTE | 2021-10-14 12:00 | Physical Therapy Daily Note ---
PT Daily Note-Current Subjective Pt sitting in recliner in room upon arrival. Pt agrees to PT and reports being excited about moving to a more independent room. Pain Location: No Pain Reported Mental Status Patient Orientation: Person, Place, Time, Situation Transfers SCALE: Activities may be completed with or without assistive devices. 0-Moffqioknl-nvsbwjd completes the activity by him/herself with no assistance from a helper. 5-Set-up or Clean-up Assistance-helper sets up or cleans up; patient completes activity. [place] assists only prior to or following the activity. 4-Supervision or Touching Assistance-helper provides verbal cues and/or touching/steadying and/or contact guard assistance as patient completes activity. Assistance may be provided throughout the activity or intermittently. 3-Partial/Moderate Assistance-helper does LESS THAN HALF the effort. [place] lifts, holds or supports trunk or limbs, but provides less than half the effort. 2-Substantial/Maximal Assistance-helper does MORE THAN HALF the effort. [place] lifts or holds trunk or limbs and provides more than half the effort. 2-Txjcpfesq-lrxugi does ALL the effort. Patient does none of the effort to complete the activity. Or, the assistance of 2 or more helpers is required for the patient to complete the activity. If activity was not attempted, code reason: 7-Patient Refused. 9-Not Applicable-not attempted and the patient did not perform the activity before the current illness, exacerbation or injury. 10-Not Attempted due to Environmental Limitations-(lack of equipment, weather restraints, etc.). 88-Not Attempted due to Medical Conditions or Safety Concerns. Sit to Lying (QC): 5 Lying to Sitting/Side of Bed(Q: 6 Sit to Stand (QC): 6 Chair/Osn-pc-Hnzaq Xfer(QC): 6 Weight Bearing Full Weight Bearing Full Weight Bearing Gait Training Does the Patient Walk?: Yes Distance: 175', 250', 125' Walk 10 feet (QC): 6 Walk 50 ft with 2 Turns(QC): 6 Walk 150 ft (QC): 6 Gait Assistive Device: FWW VC for taking steps to prevent shuffling in Parkinsonian manner. Stair Training Stair Training: Handrails/: 2 handrails #of Steps: 8 1 Step (curb) (QC): 6 4 Steps (QC): 5 Stairs: Pattern: Step to Exercises Standing: Hip Abduction, Hamstring curls, Heel/toe raises, Marching, Sit to Stand Standing Reps: 15 NuStep Minutes: 11 NuStep Workload: 5 Treatments TF to standing, declines need use BR. Amb. in hallway, completes 2 sets of 4 steps. Pt uses NuStep and takes short RB before amb. in hallway. Pt takes RB and completes Seated Ex then amb. back to room to rest. All needs met, call light in hand. Assessment Current Status: Good Progress Pt continues to virginie. tx well even if extending distance of ambulation and adding steps. PT Short Term Goals Short Term Goals Time Frame: Oct 15, 2021 Roll Left & Right: 6 Sit to lyin (SBA) Lying to sitting on side of be: 4 (SBA) Sit to stand: 4 (SBA) Chair/kbb-as-zbkee transfer: 5 Walk 10 feet: 5 Walk 50 feet with two turns: 5 Walk 150 feet: 5 PT Keymodule Assembly Supervisor Goals Keymodule Assembly Supervisor Goals PT Skilled Nursing Goals Time Frame: Oct 29, 2021 Roll Left & Right (QC): 6 Sit to Lying (QC): 6 Lying-Sitting on Side/Bed(QC): 6 Sit to Stand (QC): 6 Chair/Qvc-ko-Rnvhu Xfer(QC): 6 Toilet Transfer (QC): 6 Car Transfer (QC): 6 Does the Patient Walk: Yes Walk 10 feet (QC): 6 Walk 50ft with 2 Turns (QC): 6 Walk 150 ft (QC): 6 Walking 10ft on Uneven Surface: 6 1 Step (curb) (QC): 6 4 Steps (QC): 6 12 Steps (QC): 6 Picking up an Object (QC): 6 Wheel 50 feet with 2 turns (QC: 9 Wheel 150 feet: 9 PT Plan Treatment/Plan Treatment Plan: Continue Plan of Care Treatment Plan: Bed Mobility, Education, Functional Activity Cari, Functional Strength, Group Therapy, Gait, Safety, Therapeutic Exercise, Transfers Treatment Duration: Oct 29, 2021 Frequency: At least 5 of 7 days/Wk (IRF) Estimated Hrs Per Day: 1.5 hours per day Patient and/or Family Agrees t: Yes Safety Risks/Education Patient Education: Gait Training, Transfer Techniques, Correct Positioning Teaching Recipient: Patient Teaching Methods: Discussion Response to Teaching: Verbalize Understanding Time/GCodes Time In: 1000 Time Out: 1100 Total Billed Treatment Time: 60 Total Billed Treatment 1, FA (10m), EX x2 (30m) & GT (20m) SHASTA SPICER COMPOUNDER [employer] Oct 14, 2021 12:00
[2021-10-14] MEDS: ENOXAPARIN 40 MG/0.4 ML (LOVENOX) SYR SC SCH (15:09)
--- NOTE | 2021-10-14 16:02 | Physical Therapy Daily Note ---
PT Daily Note-Current Subjective Pt sitting in recliner upon arrival. Pt agrees to PT. Pain Location: Right Location Body Site: Hip Pain Description: Tightness Comment: Reports tightness but doesn't rate Mental Status Patient Orientation: Person, Place, Time, Situation Transfers SCALE: Activities may be completed with or without assistive devices. 5-Kbxbxykyxz-wlyyghr completes the activity by him/herself with no assistance from a helper. 5-Set-up or Clean-up Assistance-helper sets up or cleans up; patient completes activity. [place] assists only prior to or following the activity. 4-Supervision or Touching Assistance-helper provides verbal cues and/or touch ing/steadying and/or contact guard assistance as patient completes activity. Assistance may be provided throughout the activity or intermittently. 3-Partial/Moderate Assistance-helper does LESS THAN HALF the effort. [place] lifts, holds or supports trunk or limbs, but provides less than half the effort. 2-Substantial/Maximal Assistance-helper does MORE THAN HALF the effort. [place] lifts or holds trunk or limbs and provides more than half the effort. 0-Uqzokehho-prlqks does ALL the effort. Patient does none of the effort to complete the activity. Or, the assistance of 2 or more helpers is required for the patient to complete the activity. If activity was not attempted, code reason: 7-Patient Refused. 9-Not Applicable-not attempted and the patient did not perform the activity before the current illness, exacerbation or injury. 10-Not Attempted due to Environmental Limitations-(lack of equipment, weather restraints, etc.). 88-Not Attempted due to Medical Conditions or Safety Concerns. Sit to Stand (QC): 6 Weight Bearing Full Weight Bearing Full Weight Bearing Exercises Standing: Hip Abduction, Hamstring curls, 3 way Ex=Flex, Abd, Ext, Marching Standing Reps: 20 Treatments Pt asks to work on standing EX and completes them at both counter level and FWW. Pt is able to ambulate throughout room and is Mod I for transfers & mobility. Pt rests in recliner, all needs met, call light in hand. Assessment Current Status: Excellent Progress Pt virginie. tx well, always asking to progress and push self for improvement. PT Short Term Goals Short Term Goals Time Frame: Oct 15, 2021 Roll Left & Right: 6 Sit to lyin (SBA) Lying to sitting on side of be: 4 (SBA) Sit to stand: 4 (SBA) Chair/vnl-lx-fisbi transfer: 5 Walk 10 feet: 5 Walk 50 feet with two turns: 5 Walk 150 feet: 5 PT Control Electrician Goals Shelter Goals PT Shelter Goals Time Frame: Oct 29, 2021 Roll Left & Right (QC): 6 Sit to Lying (QC): 6 Lying-Sitting on Side/Bed(QC): 6 Sit to Stand (QC): 6 Chair/Gij-mj-Snwsm Xfer(QC): 6 Toilet Transfer (QC): 6 Car Transfer (QC): 6 Does the Patient Walk: Yes Walk 10 feet (QC): 6 Walk 50ft with 2 Turns (QC): 6 Walk 150 ft (QC): 6 Walking 10ft on Uneven Surface: 6 1 Step (curb) (QC): 6 4 Steps (QC): 6 12 Steps (QC): 6 Picking up an Object (QC): 6 Wheel 50 feet with 2 turns (QC: 9 Wheel 150 feet: 9 PT Plan Treatment/Plan Treatment Plan: Continue Plan of Care Treatment Plan: Bed Mobility, Education, Functional Activity Cari, Functional Strength, Group Therapy, Gait, Safety, Therapeutic Exercise, Transfers Treatment Duration: Oct 29, 2021 Frequency: At least 5 of 7 days/Wk (IRF) Estimated Hrs Per Day: 1.5 hours per day Patient and/or Family Agrees t: Yes Time/GCodes Time In: 1400 Time Out: 1430 Total Billed Treatment Time: 30 Total Billed Treatment 1, EX x2 (30m) SHASTA SPICER PTA Oct 14, 2021 16:02
[2021-10-14 20:07] VITALS: BP 116/55
[2021-10-15] MEDS: guaiFENesin/CODEINE (ROBITUSSIN AC) 10ML UDC PO PRN ×3 (04:41→20:13)
--- NOTE | 2021-10-15 06:19 | PM&R Progress Note ---
Subjective HPI/CC On Admission Date Seen by Provider: Oct 15, 2021 Time Seen by Provider: 09:00 Subjective/Events-last exam 10/15/2021: Patient doing well No pain reported Cough improved 10/14/21: Pt is out of isolation Bowels haven't moved for 5 days, so we'll get a suppository No other concerns 10/13/21: Patient ready for DC isolation at midnight tonight Cough improved Right hip pain improved 10/12/21: Out of isolation tomorrow Right hip pain continues we will get x-ray Diclofenac gel ordered Cough is improved 10/11/2021: Patient reports cough is better Feeling a lot better Slept well last night No voiding issues Bowels are moving well 10/10/2021: Pt requiring back into COVID isolation Cough is much improved Not hypoxic Bowels are moving No pain 10/09/21: Pt is doing well Moved down to rehab 229 Cough is improved with antitussives No pain is reported Walking around well Review of Systems Pulmonary: Cough Objective Exam Vital Signs Vital Signs Date Time Temp Pulse Resp B/P (MAP) Pulse Ox O2 Delivery O2 Flow Rate FiO2 10/15/21 20:00 Room Air 10/15/21 19:37 36.8 59 16 145/67 (93) 98 Capillary Refill : General Appearance: No Apparent Distress, WD/WN, Chronically ill HEENT: PERRL/EOMI, Normal ENT Inspection, Pharynx Normal Neck: Full Range of Motion, Normal Inspection, Non Tender, Supple, Carotid Bruit Respiratory: Chest Non Tender, Lungs Clear, Normal Breath Sounds, No Accessory Muscle Use, No Respiratory Distress, Decreased Breath Sounds Cardiovascular: Regular Rate, Rhythm, No Edema, No Gallop, No JVD, No Murmur, Normal Peripheral Pulses Gastrointestinal: Normal Bowel Sounds, No Organomegaly, No Pulsatile Mass, Non Tender, Soft Back: Normal Inspection, No CVA Tenderness, No Vertebral Tenderness Extremity: Normal Capillary Refill, Normal Inspection, Normal Range of Motion, Non Tender, No Calf Tenderness, No Pedal Edema Neurologic/Psychiatric: Alert, Oriented x3, No Motor/Sensory Deficits, Normal Mood/Affect, Motor Weakness (generalized all ext) Skin: Normal Color, Warm/Dry Lymphatic: No Adenopathy Results/Procedures Lab Patient resulted labs reviewed. [facility]IM Transfers Therapy Code Descriptions/Definitions Functional [place] Measure: 0=Not Assessed/NA 4=Minimal Assistance 1=Total Assistance 5=Supervision or Setup 2=Maximal Assistance 6=Modified [place] 3=Moderate Assistance 7=Complete IndependenceSCALE: Activities may be completed with or without assistive devices. 9-Gnblmtphgo-ppoijty completes the activity by him/herself with no assistance from a helper. 5-Set-up or Clean-up Assistance-helper sets up or cleans up; patient completes activity. [place] assists only prior to or following the activity. 4-Supervision or Touching Assistance-helper provides verbal cues and/or touching/steadying and/or contact guard assistance as patient completes activity. Assistance may be provided throughout the activity or intermittently. 3-Partial/Moderate Assistance-helper does LESS THAN HALF the effort. [place] lifts, holds or supports trunk or limbs, but provides less than half the effort. 2-Substantial/Maximal Assistance-helper does MORE THAN HALF the effort. [place] lifts or holds trunk or limbs and provides more than half the effort. 7-Cswqcqimy-pukirj does ALL the effort. Patient does none of the effort to complete the activity. Or, the assistance of 2 or more helpers is required for the patient to complete the activity. If activity was not attempted, code reason: 7-Patient Refused. 9-Not Applicable-not attempted and the patient did not perform the activity before the current illness, exacerbation or injury. 10-Not Attempted due to Environmental Limitations-(lack of equipment, weather restraints, etc.). 88-Not Attempted due to Medical Conditions or Safety Concerns. Roll Left to Right (QC): 6 Sit to Lying (QC): 5 Sit to Stand (QC): 6 Chair/Eae-yg-Onmcj Xfer(QC): 6 Car Transfer (QC): 4 Gait Training Does the Patient Walk?: Yes Distance: 175', 250', 125' Walk 10 feet (QC): 6 Walk 50 ft with 2 Turns(QC): 6 Walk 150 ft (QC): 6 Walking 10ft/uneven surface-QC: 4 Gait Persons Needed: 1 Gait Assistive Device: FWW Wheelchair Training Wheel 50 ft with 2 turns (QC): 9 Wheel 150 ft (QC): 9 Stair Training Stair Training: Handrails/: 2 handrails #of Steps: 8 1 Step (curb) (QC): 6 4 Steps (QC): 5 12 Steps (QC): 88 Stairs: Pattern: Step to Balance Picking up an Object (QC): 6 ADL-Treatment Eating (QC): 6 Oral Hygiene (QC): 6 Shower/Bathe Self (QC): 6 Upper Body Dressing (QC): 6 Lower Body Dressing (QC): 6 On/Off Footwear (QC): 6 Toileting Hygiene (QC): 6 Toilet Transfer (QC): 6 Assessment/Plan Assessment and Plan Assess & Plan/Chief Complaint Assessment: COVID 19 weakness Cough Bacterial bronchitis s/p urinary retention CAD HLP HTN Plan: Rehab protocol Azithromycin IS 10/09/21: Monitor closely PT OT 10/10/21: Monitor closely COVID isolation 10/11/2021: Robitussin-DM Supportive care Monitor closely 10/12/21: Right hip x-ray Supportive care 10/13/21: PT OT Improved 10/14/21: Monitor closely 10/15/2021: DC planned (1) COVID-19 (2) Generalized weakness (3) Weakness GELY AMAYA DO Oct 15, 2021 06:19
[2021-10-15] MEDS: CYANOCOBALAMIN 1,000 MCG (VITAMIN B-12) TABLET PO SCH (06:23)
[2021-10-15] MEDS: MULTIVIT W/MINERALS TAB (THERAGRAN M) PO SCH (06:23)
[2021-10-15] MEDS: LEVOTHYROXINE 100 MCG (LEVOTHROID) TAB PO SCH (06:23)
[2021-10-15 07:20] VITALS: BP 124/57
[2021-10-15] MEDS: ZINC SULFATE 220 MG CAPSULE PO SCH (07:59)
[2021-10-15] MEDS: ACETAMINOPHEN 325 MG TABLET PO PRN (08:00)
[2021-10-15] MEDS: OXYBUTYNIN (DITROPAN) 5 MG TAB PO SCH ×2 (08:01→20:13)
[2021-10-15] MEDS: BENZONATATE 100 MG (TESSALON) CAPSULE PO SCH ×3 (08:01→20:13)
[2021-10-15] MEDS: ASCORBIC ACID (VIT C) 500 MG TABLET PO SCH (08:01)
[2021-10-15] MEDS: PRASUGREL 10 MG (EFFIENT) TABLET PO SCH (08:01)
[2021-10-15] MEDS: VITAMIN D3 125 MCG (5,000 UNITS) CAPSULE PO SCH (08:01)
[2021-10-15] MEDS: SENNA W/DOCUSATE (SENOKOT S) TABLET PO SCH ×2 (08:01→20:13)
[2021-10-15] MEDS: DOCUSATE SODIUM 100 MG (COLACE) CAP PO SCH ×2 (08:01→20:13)
[2021-10-15] MEDS: DICLOFENAC 1% GEL 100 GM (VOLTAREN) TUBE TOP SCH ×4 (08:03→20:13)
[2021-10-15] MEDS: polyethylene glycoL POWDER 17 GM (MIRALAX) PACK PO SCH ×2 (08:03→19:26)
--- NOTE | 2021-10-15 10:07 | Occupational Ther Daily Note ---
OT Current Status-Daily Note Subjective Pt reports mild pain in L hip at start of session. Voltaren gel applied post shower. No c/o pain at end of treatment. Appearance Pt returned to sitting in recliner, all needs within reach. Mental Status/Objective Patient Orientation: Person, Place, Situation ADL-Treatment Therapy Code Descriptions/Definitions Functional [place] Measure: 0=Not Assessed/NA 4=Minimal Assistance 1=Total Assistance 5=Supervision or Setup 2=Maximal Assistance 6=Modified [place] 3=Moderate Assistance 7=Complete IndependenceSCALE: Activities may be completed with or without assistive devices. 8-Hkzjvwrtcw-ytevuoy completes the activity by him/herself with no assistance from a helper. 5-Set-up or Clean-up Assistance-helper sets up or cleans up; patient completes activity. [place] assists only prior to or following the activity. 4-Supervision or Touching Assistance-helper provides verbal cues and/or touching/steadying and/or contact guard assistance as patient completes activity. Assistance may be provided throughout the activity or intermittently. 3-Partial/Moderate Assistance-helper does LESS THAN HALF the effort. [place] lifts, holds or supports trunk or limbs, but provides less than half the effort. 2-Substantial/Maximal Assistance-helper does MORE THAN HALF the effort. [place] lifts or holds trunk or limbs and provides more than half the effort. 5-Uwhtattpf-tkuvqg does ALL the effort. Patient does none of the effort to complete the activity. Or, the assistance of 2 or more helpers is required for the patient to complete the activity. If activity was not attempted, code reason: 7-Patient Refused. 9-Not Applicable-not attempted and the patient did not perform the activity before the current illness, exacerbation or injury. 10-Not Attempted due to Environmental Limitations-(lack of equipment, weather restraints, etc.). 88-Not Attempted due to Medical Conditions or Safety Concerns. Eating (QC): 6 Oral Hygiene (QC): 6 Shower/Bathe Self (QC): 6 Upper Body Dressing (QC): 6 Lower Body Dressing (QC): 6 On/Off Footwear: 6 Toileting Hygiene (QC): 6 Toilet Transfer (QC): 6 Pt retrieved clothing and set up shower without assist. Post Visual demonstration of tub transfer (pt changed rooms and does not have a tub at home), he was able to complete with supervision only. Continues to need extra time to complete adls due to slow movements. Grooming tasks performed in sta nding, no unsteadiness observed. Other Treatment Pt ambulated to/from therapy gym, >100 feet with SBA and use of walker. Reminders to take bigger steps as pt often shuffles feet. Pt participated in pvc pipe activity with focus on promoting increased short term memory, endurance, and reducing UE support needed during functional tasks. With pieces placed away from template (~10 feet), pt having to recall what pieces he needed in order to build design. Pt only able to recall 3 pieces at a time, thus needing to go back and forth multiple times. With distractions such as conversation, pt forgetful and unable to recall any correct pieces. OT educates pt on simple memory strategies such as chunking, association, and repetition, and visualization. However, pt does not apply memory suggestions and continues to walk back and forth for 2-3 pieces at a time. No LOB or fatigue notable during activity. Pt then participated in novel card game. Activity performed in standing to increase standing tolerance and endurance. Min cues on strategic game play. Cards placed slightly out of BALDEV to engage balance strategies and improve functional reach. No LOB demonstrated. Education OT Patient Education: Correct positioning, Energy conservation, Progress toward Goal/Update tx plan, Purpose of tx/functional activities Teaching Recipient: Patient Teaching Methods: Discussion Response to Teaching: Verbalize Understanding, Return Demonstration OT Short Term Goals Short Term Goals Time Frame: Oct 15, 2021 Eatin Oral hygiene: 5 Toileting hygiene: 6 Shower/bathe self: 4 Upper body dressin Lower body dressin Putting on/taking off footwear: 5 OT Stitcher Special Machine Goals Senior Care Goals Time Frame: Oct 21, 2021 Eating (QC): 6 (met) Oral Hygiene (QC): 6 (met) Toileting Hygiene (QC): 6 (met) Shower/Bathe Self (QC): 5 (met) Upper Body Dressing (QC): 6 (met) Lower Body Dressing (QC): 6 (met) On/Off Footwear (QC): 6 (met) 1=Demonstrate adherence to instructed precautions during ADL tasks. 2=Patient will verbalize/demonstrate understanding of assistive devices/modifications for ADL. 3=Patient will improve strength/tolerance for activity to enable patient to perform ADL's. OT Education/Plan Problem List/Assessment Assessment: Decreased Activ Tolerance, Decreased UE Strength, Impaired I ADL's Discharge Recommendations Plan/Recommendations: Continue POC Treatment Plan/Plan of Care Treatment,Training & Education: Yes Patient would benefit from OT for education, treatment and training to promote independence in ADL's, mobility, safety and/or upper extremity function for ADL's. Plan of Care: ADL Retraining, Cognitive Retraining, Functional Mobility, Group Exercise/Act as Ind, UE Funct Exercise/Act Treatment Duration: Oct 21, 2021 Frequency: At least 5 of 7 days/Wk (IRF) Estimated Hrs Per Day: 1.5 hours per day (75-90 min/day ) Agreement: Yes Rehab Potential: Good Time/GCodes Start Time: 08:30 Stop Time: 10:00 Total Time Billed (hr/min): 90 Billed Treatment Time 1 visit ADL x2 (35 min) FA x4 (55 min) Gabby Burkett OT Oct 15, 2021 10:07
--- NOTE | 2021-10-15 12:00 | Physical Therapy Daily Note ---
PT Daily Note-Current Subjective Pt sitting in recliner upon arrival. Pt agrees to PT. Pain Location: No Pain Reported Mental Status Patient Orientation: Person, Place, Time, Situation Transfers SCALE: Activities may be completed with or without assistive devices. 6-Rmrgtbujhb-frimmfy completes the activity by him/herself with no assistance from a helper. 5-Set-up or Clean-up Assistance-helper sets up or cleans up; patient completes activity. [place] assists only prior to or following the activity. 4-Supervision or Touching Assistance-helper provides verbal cues and/or touching/steadying and/or contact guard assistance as patient completes activity. Assistance may be provided throughout the activity or intermittently. 3-Partial/Moderate Assistance-helper does LESS THAN HALF the effort. [place] lifts, holds or supports trunk or limbs, but provides less than half the effort. 2-Substantial/Maximal Assistance-helper does MORE THAN HALF the effort. [place] lifts or holds trunk or limbs and provides more than half the effort. 8-Tkkbxrbdq-soxmlu does ALL the effort. Patient does none of the effort to complete the activity. Or, the assistance of 2 or more helpers is required for the patient to complete the activity. If activity was not attempted, code reason: 7-Patient Refused. 9-Not Applicable-not attempted and the patient did not perform the activity bef ore the current illness, exacerbation or injury. 10-Not Attempted due to Environmental Limitations-(lack of equipment, weather r estraints, etc.). 88-Not Attempted due to Medical Conditions or Safety Concerns. Roll Left & Right (QC): 6 Sit to Lying (QC): 6 Lying to Sitting/Side of Bed(Q: 6 Sit to Stand (QC): 6 Chair/Sus-vj-Xfwbn Xfer(QC): 6 Toilet Transfer (QC): 6 Car Transfer (QC): 6 Weight Bearing Full Weight Bearing Full Weight Bearing Gait Training Does the Patient Walk?: Yes Distance: 175', 250', 350' Walk 10 feet (QC): 6 Walk 50 ft with 2 Turns(QC): 6 Walk 150 ft (QC): 6 Walking 10ft/uneven surface-QC: 6 Gait Persons Needed: 0 Gait Assistive Device: FWW Wheelchair Training Does the Pt Use a Wheelchair?: No Stair Training Stair Training: Handrails/: 2 handrails #of Steps: 8 1 Step (curb) (QC): 6 4 Steps (QC): 6 12 Steps (QC): 7 Stairs: Pattern: Reciprocal Balance Picking up an Object (QC): 6 Treatments Pt completes QC scoring items listed above as well as extended walk w/RB as needed. Pt returns to recliner to rest w/all needs met, call light in hand. Assessment Current Status: Excellent Progress Pt virginie. tx well. Pt has gained strength, mobility and activity tolerance. PT Short Term Goals Short Term Goals Time Frame: Oct 15, 2021 Roll Left & Right: 6 Sit to lyin (SBA) Lying to sitting on side of be: 4 (SBA) Sit to stand: 4 (SBA) Chair/hbv-co-lauuo transfer: 5 Walk 10 feet: 5 Walk 50 feet with two turns: 5 Walk 150 feet: 5 PT Consulting Application Engineer Goals Consulting Application Engineer Goals PT Detention Goals Time Frame: Oct 29, 2021 Roll Left & Right (QC): 6 Sit to Lying (QC): 6 Lying-Sitting on Side/Bed(QC): 6 Sit to Stand (QC): 6 Chair/Zhq-ca-Bpair Xfer(QC): 6 Toilet Transfer (QC): 6 Car Transfer (QC): 6 Does the Patient Walk: Yes Walk 10 feet (QC): 6 Walk 50ft with 2 Turns (QC): 6 Walk 150 ft (QC): 6 Walking 10ft on Uneven Surface: 6 1 Step (curb) (QC): 6 4 Steps (QC): 6 12 Steps (QC): 6 Picking up an Object (QC): 6 Wheel 50 feet with 2 turns (QC: 9 Wheel 150 feet: 9 PT Plan Treatment/Plan Treatment Plan: Continue Plan of Care Treatment Plan: Bed Mobility, Education, Functional Activity Cari, Functional Strength, Group Therapy, Gait, Safety, Therapeutic Exercise, Transfers Treatment Duration: Oct 29, 2021 Frequency: At least 5 of 7 days/Wk (IRF) Estimated Hrs Per Day: 1.5 hours per day Patient and/or Family Agrees t: Yes Time/GCodes Time In: 1000 Time Out: 1100 Total Billed Treatment Time: 60 Total Billed Treatment 1, GT (20m), EX (15m) & FA x2 (25m) SHASTA SPICER GUEST SERVICES LEAD Oct 15, 2021 12:00
[2021-10-15] MEDS: ENOXAPARIN 40 MG/0.4 ML (LOVENOX) SYR SC SCH (15:01)
--- NOTE | 2021-10-15 15:11 | Physical Therapy Daily Note ---
PT Daily Note-Current Subjective Pt sitting in recliner upon arrival. Pt agrees to PT. Pt reports feeling ready to d/c tomorrow as he is stronger and less tired. Pain Location: No Pain Reported Mental Status Patient Orientation: Person, Place, Time, Situation Transfers SCALE: Activities may be completed with or without assistive devices. 5-Ajrzzmcdor-absetlu completes the activity by him/herself with no assistance from a helper. 5-Set-up or Clean-up Assistance-helper sets up or cleans up; patient completes activity. [place] assists only prior to or following the activity. 4-Supervision or Touching Assistance-helper provides verbal cues and/or touching/steadying and/or contact guard assistance as patient completes activity. Assistance may be provided throughout the activity or intermittently. 3-Partial/Moderate Assistance-helper does LESS THAN HALF the effort. [place] lifts, holds or supports trunk or limbs, but provides less than half the effort. 2-Substantial/Maximal Assistance-helper does MORE THAN HALF the effort. [place] lifts or holds trunk or limbs and provides more than half the effort. 3-Cxvmqigku-fhknqc does ALL the effort. Patient does none of the effort to complete the activity. Or, the assistance of 2 or more helpers is required for the patient to complete the activity. If activity was not attempted, code reason: 7-Patient Refused. 9-Not Applicable-not attempted and the patient did not perform the activity before the current illness, exacerbation or injury. 10-Not Attempted due to Environmental Limitations-(lack of equipment, weather restraints, etc.). 88-Not Attempted due to Medical Conditions or Safety Concerns. Sit to Stand (QC): 6 Toilet Transfer (QC): 6 Weight Bearing Full Weight Bearing Full Weight Bearing Gait Training Does the Patient Walk?: Yes Distance: 300' Walk 10 feet (QC): 6 Walk 50 ft with 2 Turns(QC): 6 Walk 150 ft (QC): 6 Gait Persons Needed: 0 Gait Assistive Device: FWW Wheelchair Training Does the Pt Use a Wheelchair?: No Exercises Standing: Hip Abduction, Hamstring curls, Heel/toe raises, Marching Standing Reps: 20 Treatments Pt is able to stand from recliner then complete EX at counter top level. Pt amb. in hallway before returning to room to rest in recliner. All needs met, call light in hand. Assessment Current Status: Excellent Progress Pt [place]. tx well. PT Short Term Goals Short Term Goals Time Frame: Oct 15, 2021 Roll Left & Right: 6 Sit to lyin (SBA) Lying to sitting on side of be: 4 (SBA) Sit to stand: 4 (SBA) Chair/wgc-es-tplud transfer: 5 Walk 10 feet: 5 Walk 50 feet with two turns: 5 Walk 150 feet: 5 PT Senior Care Goals Senior Care Goals PT Bilingual Sales Representative Goals Time Frame: Oct 29, 2021 Roll Left & Right (QC): 6 Sit to Lying (QC): 6 Lying-Sitting on Side/Bed(QC): 6 Sit to Stand (QC): 6 Chair/Yty-ri-Xbajf Xfer(QC): 6 Toilet Transfer (QC): 6 Car Transfer (QC): 6 Does the Patient Walk: Yes Walk 10 feet (QC): 6 Walk 50ft with 2 Turns (QC): 6 Walk 150 ft (QC): 6 Walking 10ft on Uneven Surface: 6 1 Step (curb) (QC): 6 4 Steps (QC): 6 12 Steps (QC): 6 Picking up an Object (QC): 6 Wheel 50 feet with 2 turns (QC: 9 Wheel 150 feet: 9 PT Plan Treatment/Plan Treatment Plan: Continue Plan of Care Treatment Plan: Bed Mobility, Education, Functional Activity Cari, Functional Strength, Group Therapy, Gait, Safety, Therapeutic Exercise, Transfers Treatment Duration: Oct 29, 2021 Frequency: At least 5 of 7 days/Wk (IRF) Estimated Hrs Per Day: 1.5 hours per day Patient and/or Family Agrees t: Yes Time/GCodes Time In: 1400 Time Out: 1430 Total Billed Treatment Time: 30 Total Billed Treatment 1, FA (15m) & EX (15m) SHASTA SPICER GRINDING SUPERVISOR Oct 15, 2021 15:11
[2021-10-15 19:37] VITALS: BP 145/67
[2021-10-16] MEDS ORDERED: BENZ100C18 PO (06:11)
[2021-10-16] MEDS ORDERED: GFCD10B PO (06:11)
--- NOTE | 2021-10-16 06:12 | Discharge Summary ---
Diagnosis/Chief Complaint Date of Admission Oct 08, 2021 at 13:19 Date of Discharge Discharge Date: Oct 16, 2021 Discharge Diagnosis Assessment: COVID 19 weakness Cough Bacterial bronchitis s/p urinary retention CAD HLP HTN Plan: Rehab protocol Azithromycin IS 10/09/21: Monitor closely PT OT 10/10/21: Monitor closely COVID isolation 10/11/2021: Robitussin-DM Supportive care Monitor closely 10/12/21: Right hip x-ray Supportive care 10/13/21: PT OT Improved 10/14/21: Monitor closely 10/15/2021: DC planned (1) COVID-19 (2) Generalized weakness (3) Weakness Discharge Summary Discharge Physical Examination Allergies: Coded Allergies: No Known Drug Allergies (Unverified , 06/15/19) Vitals & I&Os Vital Signs Date Time Temp Pulse Resp B/P (MAP) Pulse Ox O2 Delivery O2 Flow Rate FiO2 10/16/21 09:00 Room Air 10/16/21 07:41 36.9 58 18 119/62 (81) 96 General Appearance: Alert, Oriented X3, Cooperative Respiratory: Clear to Auscultation Cardiovascular: Regular Rate Neuro: Normal Gait, Normal Speech, Strength at 5/5 X4 Ext Psych/Mental Status: Mental Status NL Hospital Course Was the Problem List Reviewed?: Yes Standard course after he was admitted to ARU but remained in isolation for COVID for the first 5 days. Patient was able to recover strength post COVID and labs remained stable and cough improved. Bowel and bladder function returned back to baseline and patient was ready for DC home. Labs (last 24 hrs) Laboratory Tests 10/09/21 07:09: White Blood Count 7.3, Red Blood Count 3.85L, Hemoglobin 12.4L, Hematocrit 38L, Mean Corpuscular Volume 100H, Mean Corpuscular Hemoglobin 32, Mean Corpuscular Hemoglobin Concent 32, Red Cell Distribution Width 14.2, Platelet Count 174, Mean Platelet Volume 10.0, Immature Granulocyte % (Auto) 0, Neutrophils (%) (Auto) 75, Lymphocytes (%) (Auto) 13, Monocytes (%) (Auto) 8, Eosinophils (%) (Auto) 3, Basophils (%) (Auto) 0, Neutrophils # (Auto) 5.4, Lymphocytes # (Auto) 1.0, Monocytes # (Auto) 0.6, Eosinophils # (Auto) 0.2, Basophils # (Auto) 0.0, Immature Granulocyte # (Auto) 0.0, Sodium Level 138, Potassium Level 4.1, Chloride Level 103, Carbon Dioxide Level 22, Anion Gap 13, Blood Urea Nitrogen 13, Creatinine 0.72, Estimat Glomerular Filtration Rate 92, BUN/Creatinine Ratio 18, Glucose Level 91, Calcium Level 8.9, Corrected Calcium 9.5, Total Bilirubin 0.4, Aspartate Amino Transf (AST/SGOT) 29, Alanine Aminotransferase (ALT/SGPT) 30, Alkaline Phosphatase 61, Total Protein 6.9, Albumin 3.3 10/13/21 07:55: White Blood Count 6.0, Red Blood Count 3.75L, Hemoglobin 12.1L, Hematocrit 37L, Mean Corpuscular Volume 98, Mean Corpuscular Hemoglobin 32, Mean Corpuscular Hemoglobin Concent 33, Red Cell Distribution Width 14.2, Platelet Count 280, Mean Platelet Volume 9.7, Immature Granulocyte % (Auto) 1, Neutrophils (%) (Auto) 67, Lymphocytes (%) (Auto) 18, Monocytes (%) (Auto) 9, Eosinophils (%) (Auto) 5, Basophils (%) (Auto) 1, Neutrophils # (Auto) 4.0, Lymphocytes # (Auto) 1.1, Monocytes # (Auto) 0.6, Eosinophils # (Auto) 0.3, Basophils # (Auto) 0.0, Immature Granulocyte # (Auto) 0.1, Sodium Level 138, Potassium Level 4.2, Chloride Level 101, Carbon Dioxide Level 26, Anion Gap 11, Blood Urea Nitrogen 16, Creatinine 0.80, Estimat Glomerular Filtration Rate 89, BUN/Creatinine Ratio 20, Glucose Level 105, Calcium Level 9.1, Corrected Calcium 9.4, Total Bilirubin 0.6, Aspartate Amino Transf (AST/SGOT) 40H, Alanine Aminotransferase (ALT/SGPT) 45, Alkaline Phosphatase 67, Total Protein 7.3, Albumin 3.6 Pending Labs Laboratory Tests 10/09/21 07:09: White Blood Count 7.3, Red Blood Count 3.85, Hemoglobin 12.4, Hematocrit 38, Mean Corpuscular Volume 100, Mean Corpuscular Hemoglobin 32, Mean Corpuscular Hemoglobin Concent 32, Red Cell Distribution Width 14.2, Platelet Count 174, Mean Platelet Volume 10.0, Immature Granulocyte % (Auto) 0, Neutrophils (%) (Auto) 75, Lymphocytes (%) (Auto) 13, Monocytes (%) (Auto) 8, Eosinophils (%) (Auto) 3, Basophils (%) (Auto) 0, Neutrophils # (Auto) 5.4, Lymphocytes # (Auto) 1.0, Monocytes # (Auto) 0.6, Eosinophils # (Auto) 0.2, Basophils # (Auto) 0.0, Immature Granulocyte # (Auto) 0.0, Sodium Level 138, Potassium Level 4.1, Chloride Level 103, Carbon Dioxide Level 22, Anion Gap 13, Blood Urea Nitrogen 13, Creatinine 0.72, Estimat Glomerular Filtration Rate 92, BUN/Creatinine Ratio 18, Glucose Level 91, Calcium Level 8.9, Corrected Calcium 9.5, Total Bilirubin 0.4, Aspartate Amino Transf (AST/SGOT) 29, Alanine Aminotransferase (ALT/SGPT) 30, Alkaline Phosphatase 61, Total Protein 6.9, Albumin 3.3 10/13/21 07:55: White Blood Count 6.0, Red Blood Count 3.75, Hemoglobin 12.1, Hematocrit 37, Mean Corpuscular Volume 98, Mean Corpuscular Hemoglobin 32, Mean Corpuscular Hemoglobin Concent 33, Red Cell Distribution Width 14.2, Platelet Count 280, Mean Platelet Volume 9.7, Immature Granulocyte % (Auto) 1, Neutrophils (%) (Auto) 67, Lymphocytes (%) (Auto) 18, Monocytes (%) (Auto) 9, Eosinophils (%) (Auto) 5, Basophils (%) (Auto) 1, Neutrophils # (Auto) 4.0, Lymphocytes # (Auto) 1.1, Monocytes # (Auto) 0.6, Eosinophils # (Auto) 0.3, Basophils # (Auto) 0.0, Immature Granulocyte # (Auto) 0.1, Sodium Level 138, Potassium Level 4.2, Chloride Level 101, Carbon Dioxide Level 26, Anion Gap 11, Blood Urea Nitrogen 16, Creatinine 0.80, Estimat Glomerular Filtration Rate 89, BUN/Creatinine Ratio 20, Glucose Level 105, Calcium Level 9.1, Corrected Calcium 9.4, Total Bilirubin 0.6, Aspartate Amino Transf (AST/SGOT) 40, Alanine Aminotransferase (ALT/SGPT) 45, Alkaline Phosphatase 67, Total Protein 7.3, Albumin 3.6 Discharge Home Medications: Active Scripts Active Tessalon Perles (Benzonatate) 100 Mg Capsule 100 Mg PO TID Robitussin Ac (Codeine) Syrup (Guaifenesin/Codeine Phosphate) 10 Ml Syrp 10 Ml PO Q4H PRN Reported Ocuvite Adult 50 Plus Softgel (C,E,Zinc,Copper 11/Ideok7e/Lut) 250 Mg (90 Mg-160 Mg)-5 Mg-1 Mg Capsule 1 Each PO DAILY Vitamin D3 (Cholecalciferol (Vitamin D3)) 125 Mcg (5000 Unit) Tablet 125 Mcg PO DAILY Zinc (Zinc Amino Acid Chelate) 50 Mg Tablet 50 Mg PO DAILY Euthyrox (Levothyroxine Sodium) 200 Mcg Tablet 200 Mcg PO DAILY Prasugrel HCl 10 Mg Tablet 10 Mg PO DAILY Colace (Docusate Sodium) 100 Mg Capsule 100 Mg PO DAILY PRN Lipitor (Atorvastatin Calcium) 20 Mg Tablet 20 Mg PO DAILY Oxybutynin Chloride 5 Mg Tablet 5 Mg PO BID Vitamin B12 (Cyanocobalamin (Vitamin B-12)) 5,000 Mcg Tab.rapdis 5,000 Mcg PO DAILY Vitamin C (Ascorbate Calcium) 500 Mg Tablet 500 Mg PO DAILY Instructions to patient/family Please see electronic discharge instructions given to patient. Diagnosis/Problems Diagnosis/Problems (1) COVID-19 (2) Generalized weakness (3) Weakness GELY AMAYA DO Oct 16, 2021 06:12
[2021-10-16] MEDS: LEVOTHYROXINE 100 MCG (LEVOTHROID) TAB PO SCH (06:16)
[2021-10-16] MEDS: CYANOCOBALAMIN 1,000 MCG (VITAMIN B-12) TABLET PO SCH (06:16)
[2021-10-16] MEDS: MULTIVIT W/MINERALS TAB (THERAGRAN M) PO SCH (06:16)
[2021-10-16] MEDS: guaiFENesin/CODEINE (ROBITUSSIN AC) 10ML UDC PO PRN ×2 (06:17→09:04)
[2021-10-16 07:41] VITALS: BP 119/62
[2021-10-16] MEDS: polyethylene glycoL POWDER 17 GM (MIRALAX) PACK PO SCH (09:00)
[2021-10-16] MEDS: DOCUSATE SODIUM 100 MG (COLACE) CAP PO SCH (09:00)
[2021-10-16] MEDS: DICLOFENAC 1% GEL 100 GM (VOLTAREN) TUBE TOP SCH (09:00)
[2021-10-16] MEDS: SENNA W/DOCUSATE (SENOKOT S) TABLET PO SCH (09:00)
[2021-10-16] MEDS: ASCORBIC ACID (VIT C) 500 MG TABLET PO SCH (09:04)
[2021-10-16] MEDS: BENZONATATE 100 MG (TESSALON) CAPSULE PO SCH (09:04)
[2021-10-16] MEDS: OXYBUTYNIN (DITROPAN) 5 MG TAB PO SCH (09:04)
[2021-10-16] MEDS: VITAMIN D3 125 MCG (5,000 UNITS) CAPSULE PO SCH (09:04)
[2021-10-16] MEDS: ZINC SULFATE 220 MG CAPSULE PO SCH (09:04)
[2021-10-16] MEDS: PRASUGREL 10 MG (EFFIENT) TABLET PO SCH (09:04)
--- NOTE | 2021-10-16 10:59 | Therapy Team Discharge Summary ---
Therapy Discharge Summary Discharge Recommendations Date of Discharge Physical Therapy Patient came to rehab with covid 19 debility. Upon evaluation patient perform rolling with independence, supine <-> sit min assist, sit <-> stand CGA, transfers SBA, ambulate 300' with a rolling walker with SBA (including 50' with at least 2 turns of 90 degrees), and picked up an object from the floor using a terminal carman with CGA. Patient has been performing bed mobility and transfer training, balance and endurance training, functional strengthening, stair training, gait training, and education. Patient has made good progress and has met all of his shelter goals. Now, patient performs rolling and supine <-> sit with independence, sit <-> stand and transfers with independence, car transfer independent, ambulates 350' with a rolling walker with independence (including 50' with at least 2 turns of 90 degrees and 10' over an uneven surface), can go up and down 8 steps using 2 handrails with independence, and can picker feeder an object from the floor with independence. Patient is being disc harged from this facility today and will be discharged from PT at this time. Roll Left to Right (QC): 6 Sit to Lying (QC): 6 Lying to Sitting/Side of Bed(Q: 6 Sit to Stand (QC): 6 Chair/Zaj-or-Rfbms Xfer(QC): 6 Toilet Transfer (QC): 5 Car Transfer (QC): 6 Does the Patient Walk: Yes Mode of Locomotion: Walk Anticipated Mode of Locomotion: Walk Walk 10 feet (QC): 6 Walk 50 ft with 2 Turns(QC): 6 Walk 150 ft (QC): 6 Walking 10ft on uneven surface: 6 Distance: 300', 20' Gait Assistive Device: FWW Does the Pt Use a Wheelchair: No Wheel 50 ft with 2 turns (QC): 9 Wheel 150 ft (QC): 9 Type of Wheelchair: N/A #of Steps: 8 1 Step (curb) (QC): 6 4 Steps (QC): 6 12 Steps (QC): 7 Balance Sitting Static: Normal Balance Sitting Dynamic: Normal Balance-Standing Static: Normal Picking up an Object (QC): 6 Occupational Therapy Decreased Activ Tolerance, Decreased UE Strength, Impaired I ADL's Eating (QC): 6 Oral Hygiene (QC): 6 Shower/Bathe Self (QC): 6 Upper Body Dressing (QC): 6 Lower Body Dressing (QC): 6 On/Off Footwear (QC): 6 Toileting Hygiene (QC): 6 PT Group Home Goals Group Home Goals PT Group Home Goals Time Frame: Oct 29, 2021 Roll Left to Right (QC): 6 Sit to Lying (QC): 6 Lying-Sitting on Side/Bed(QC): 6 Sit to Stand (QC): 6 Chair/Iir-ip-Xgryj Xfer(QC): 6 Car Transfer (QC): 6 Does the Patient Walk: Yes Walk 10 feet (QC): 6 Walk 10ft-Uneven Surface(QC): 6 Walk 50ft with 2 Turns (QC): 6 Walk 150 ft (QC): 6 Wheel 50 feet with 2 turns (QC: 9 1 Step (curb) (QC): 6 4 Steps (QC): 6 12 Steps (QC): 6 Picking up an Object (QC): 6 OT Regional Manager Goals Regional Manager Goals Time Frame: Oct 21, 2021 Eating (QC): 6 (met) Oral Hygiene (QC): 6 (met) Shower/Bathe Self (QC): 5 (met) Upper Body Dressing (QC): 6 (met) Lower Body Dressing (QC): 6 (met) On/Off Footwear (QC): 6 (met) Toileting Hygiene (QC): 6 (met) Toilet/Commode Transfer (QC): 6 1=Demonstrate adherence to instructed precautions during ADL tasks. 2=Patient will verbalize/demonstrate understanding of assistive devices/modifications for ADL. 3=Patient will improve strength/tolerance for activity to enable patient to perform ADL's. SAEID AERLLANO PT Oct 16, 2021 10:59
--- NOTE | 2021-10-16 11:23 | Therapy Team Discharge Summary ---
Therapy Discharge Summary Discharge Recommendations Date of Discharge Therapy D/C Recommendations: Home w/ Family Support Physical Therapy Roll Left to Right (QC): 6 Sit to Lying (QC): 6 Lying to Sitting/Side of Bed(Q: 6 Sit to Stand (QC): 6 Chair/Pgn-ns-Lxlqz Xfer(QC): 6 Toilet Transfer (QC): 5 Car Transfer (QC): 6 Does the Patient Walk: Yes Mode of Locomotion: Walk Anticipated Mode of Locomotion: Walk Walk 10 feet (QC): 6 Walk 50 ft with 2 Turns(QC): 6 Walk 150 ft (QC): 6 Walking 10ft on uneven surface: 6 Distance: 300', 20' Gait Assistive Device: FWW Does the Pt Use a Wheelchair: No Wheel 50 ft with 2 turns (QC): 9 Wheel 150 ft (QC): 9 Type of Wheelchair: N/A #of Steps: 8 1 Step (curb) (QC): 6 4 Steps (QC): 6 12 Steps (QC): 7 Balance Sitting Static: Normal Balance Sitting Dynamic: Normal Balance-Standing Static: Normal Picking up an Object (QC): 6 Occupational Therapy Pt admitted to ARU with debility and COVID 19. At time of evaluation, he was CGA for toileting, lower body dressing, oral care and bathing, sba for footwear, and set up for upper body dressing and eating. During his rehab stay, OT focused on endurance, UE strength, balance, breathing strategies, activity tolerance, en ergy conservation strategies, and compensatory techniques in order to improve performance and safety in adls and functional mobility. Pt made good progress and met all of his longterm goals. See below for current levels of assist. Pt will be discharging from this facility today and will be discharged from OT. Decreased Activ Tolerance, Decreased UE Strength, Impaired I ADL's Eating (QC): 6 Oral Hygiene (QC): 6 Shower/Bathe Self (QC): 6 Upper Body Dressing (QC): 6 Lower Body Dressing (QC): 6 On/Off Footwear (QC): 6 Toileting Hygiene (QC): 6 PT Car Sales Consultant Goals Long-Term Goals PT Long-Term Goals Time Frame: Oct 29, 2021 Roll Left to Right (QC): 6 Sit to Lying (QC): 6 Lying-Sitting on Side/Bed(QC): 6 Sit to Stand (QC): 6 Chair/Ifo-sa-Rcwkt Xfer(QC): 6 Car Transfer (QC): 6 Does the Patient Walk: Yes Walk 10 feet (QC): 6 Walk 10ft-Uneven Surface(QC): 6 Walk 50ft with 2 Turns (QC): 6 Walk 150 ft (QC): 6 Wheel 50 feet with 2 turns (QC: 9 1 Step (curb) (QC): 6 4 Steps (QC): 6 12 Steps (QC): 6 Picking up an Object (QC): 6 OT Long-Term Goals Car Sales Consultant Goals Time Frame: Oct 21, 2021 Eating (QC): 6 (met) Oral Hygiene (QC): 6 (met) Shower/Bathe Self (QC): 5 (met) Upper Body Dressing (QC): 6 (met) Lower Body Dressing (QC): 6 (met) On/Off Footwear (QC): 6 (met) Toileting Hygiene (QC): 6 (met) Toilet/Commode Transfer (QC): 6 (met) 1=Demonstrate adherence to instructed precautions during ADL tasks. 2=Patient will verbalize/demonstrate understanding of assistive devices/modifications for ADL. 3=Patient will improve strength/tolerance for activity to enable patient to perform ADL's. Gabby Burkett OT Oct 16, 2021 11:23
== END 2021-10-16 10:45 | disposition home or self-care (01) | DRG 91 ==
LOC: 4TH 13:19
PROVIDERS: ADMIT Internal Medicine; ATTEND Internal Medicine
PROC: 8E0ZXY6 Isolation (ICD-10-PCS; principal; 2021-10-10)
DX: G72.89 Other specified myopathies (principal); U07.1 COVID-19; J12.82 Pneumonia due to coronavirus disease 2019; J40 Bronchitis, not specified as acute or chronic; R53.1 Weakness; I25.10 Atherosclerotic heart disease of native coronary artery without angina pectoris; E78.5 Hyperlipidemia, unspecified; I10 Essential (primary) hypertension; M25.551 Pain in right hip; I25.2 Old myocardial infarction; Z87.891 Personal history of nicotine dependence; Z79.899 Other long term (current) drug therapy
CPT/HCPCS: 36415; 73502; 80053; 85025

== ENCOUNTER → 2021-10-23 | Outpatient (RCR) | payer MEDICARE, OTHER ==
[~2021-10-23] MED LIST changes: +BENZ100C18 PO; +GFCD10B PO
== END | disposition home or self-care (01) ==
PROVIDERS: ATTEND Internal Medicine
DX: M25.551 Pain in right hip (principal); R53.1 Weakness; M54.50 Low back pain, unspecified; U09.9 Post COVID-19 condition, unspecified; I10 Essential (primary) hypertension

== ENCOUNTER 2021-11-21 13:00 | Outpatient (RCR) | payer MEDICARE, OTHER | END 2021-11-23 | disposition home or self-care (01) | PROVIDERS: ATTEND Internal Medicine | DX: M25.551 Pain in right hip (principal); R53.1 Weakness; M54.50 Low back pain, unspecified; U09.9 Post COVID-19 condition, unspecified; I10 Essential (primary) hypertension ==

== ENCOUNTER 2021-11-27 12:55 | Outpatient (RCR) | payer MEDICARE, OTHER | END 2021-11-27 13:56 | disposition home or self-care (01) | PROVIDERS: ATTEND Internal Medicine | DX: M25.551 Pain in right hip (principal); R53.1 Weakness; M54.50 Low back pain, unspecified; I10 Essential (primary) hypertension; U09.9 Post COVID-19 condition, unspecified ==

== ENCOUNTER → 2022-06-05 | Outpatient (CLI) | payer MEDICARE, OTHER ==
[~2022-06-05] MED LIST changes: +BARIUM for suspension 96% w/w (Vanilla Silq Medium Density) PO ONE; +BARIUM for suspension 98% w/w (Vanilla Silq High Density) PO ONE
--- NOTE | 2022-06-05 13:43 | Diagnostic Imaging Report ---
INDICATION: Food getting stuck in the throat. TECHNIQUE: Patient ingested effervescent crystals as well as thin and thick barium, and imaging of the esophagus was performed in multiple obliquities. 39 seconds of fluoroscopic time was utilized. FINDINGS: Preliminary radiograph of the chest is unremarkable. The esophagus does show occasional tertiary contractions and generalized esophageal dysmotility. No esophageal mass is identified. No stricture is detected. No definite hiatal hernia or gastroesophageal reflux is identified. IMPRESSION: Generalized esophageal dysmotility. No mass or stricture is identified. Dictated by: Dictated on workstation # [id number]
== END ==
LOC: RAD 10:38
PROVIDERS: ATTEND Otolaryngology Otolaryngology/Facial Plastic Surgery
DX: K22.4 Dyskinesia of esophagus (principal)
CPT/HCPCS: 74220

== ENCOUNTER 2023-01-26 14:40 | Emergency (ER) | payer MEDICARE, OTHER ==
[~2023-01-26 14:40] MED LIST changes: -BARIUM for suspension 96% w/w (Vanilla Silq Medium Density) PO ONE; -BARIUM for suspension 98% w/w (Vanilla Silq High Density) PO ONE
--- NOTE | 2023-01-26 15:34 | ED General ---
General Chief Complaint: Neuro-Stroke Like Symptoms Stated Complaint: INCONTINENCE | DIFFICULTY SPEAKING Nursing Triage Note: PT AMB W CANE PT STATES HAS SOME BRAIN FOG AND DIFF GETTING WORDS OUT. PT IS ALERT AND ORIENTED X 4. DENIES PAIN. PT STATES HAS HAD 2 EPISODES OF URINARY IN CONTINCE LAST NIGHT. WAS SENT BY DR AUSTIN'S OFFICE History of Present Illness Date Seen by Provider: Jan 26, 2023 Time Seen by Provider: 14:52 Initial Comments 83-year-old male sent over by his primary care provider after 2 episodes of incontinence overnight and difficulty speaking. The patient and his present, he is able to answer all questions without difficulty and good recall. No history of CVA, history of MN and stents. 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 No longer on B/P medications, takes Aspirin daily no Anticoagulants. He denies chest pain or shortness of breath. 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 He denies any difficulty with with his gait that is not chronic. Patient and report last time he had symptoms of incontinence, he had a UTI. Urine was checked at Dr. Austin's office and found to be normal. reports last known well time 2129 last night. Timing/Duration: 12-24 Hours Severity: Mild Associated Systoms: No Chest Pain, No Cough, No Diaphoresis, No Fever/Chills, No Headaches, No Loss of Appetite, No Malaise, No Nausea/Vomiting, No Rash, No Seizure, No Shortness of Air, No Syncope, No Weakness; Other (Incontinence through the night, none since awakening this am) Allergies and Home Medications Allergies Coded Allergies: No Known Drug Allergies (Unverified , 06/15/19) Patient Home Medication List Home Medication List Reviewed: Yes Ascorbate Calcium (Vitamin C) 500 Mg Tablet, 500 MG PO DAILY, (Reported) Entered as Reported by: FLORIDALMA OKEEFE on 06/22/19 112 Atorvastatin Calcium (Lipitor) 20 Mg Tablet, 20 MG PO DAILY, (Reported) Entered as Reported by: FLORIDALMA OKEEFE on 06/22/19 1124 Benzonatate (Tessalon Perles) 100 Mg Capsule, 100 MG PO TID Prescribed by: GELY AMAYA on 10/16/21 0611 C,E,Zinc,Copper 11/Hqoki2x/Lut (Ocuvite Adult 50 Plus Softgel) 250 Mg (90 Mg-160 Mg)-5 Mg-1 Mg Capsule, 1 EACH PO DAILY, (Reported) Entered as Reported by: ANDREA ROMAN on 10/06/21 09 Cholecalciferol (Vitamin D3) (Vitamin D3) 125 Mcg (5000 Unit) Tablet, 125 MCG PO DAILY, (Reported) Entered as Reported by: ANDREA ROMAN on 10/06/21 09 Cyanocobalamin (Vitamin B-12) (Vitamin B12) 5,000 Mcg Tab.rapdis, 5,000 MCG PO DAILY, (Reported) Entered as Reported by: FLORIDALMA OKEEFE on 06/22/19 112 Docusate Sodium (Colace) 100 Mg Capsule, 100 MG PO DAILY PRN for CONSTIPATION- 1ST LINE, (Reported) Entered as Reported by: FLORIDALMA OKEEFE on 06/22/19 112 Guaifenesin/Codeine (Robitussin Ac (Codeine) Syrup) 10 Ml Syrp, 10 ML PO Q4H PRN for COUGH Prescribed by: GELY AMAYA on 10/16/21 0612 Levothyroxine Sodium (Euthyrox) 200 Mcg Tablet, 200 MCG PO DAILY, (Reported) Entered as Reported by: MENA PARKS on 10/04/21 1218 Oxybutynin Chloride (Oxybutynin Chloride) 5 Mg Tablet, 5 MG PO BID, (Reported) Entered as Reported by: FLORIDALMA OKEEFE on 06/22/19 112 Prasugrel HCl (Prasugrel HCl) 10 Mg Tablet, 10 MG PO DAILY, (Reported) Entered as Reported by: MENA PARKS on 10/04/21 1218 Zinc Amino Acid Chelate (Zinc) 50 Mg Tablet, 50 MG PO DAILY, (Reported) Entered as Reported by: ANDREA ROMAN on 10/06/21 0904 Review of Systems Review of Systems Constitutional: no symptoms reported, see HPI Cardiovascular: no symptoms reported, see HPI; No chest pain Gastrointestinal: no symptoms reported, see HPI Genitourinary: see HPI; No dysuria, No frequency, No hematuria; incontinence Skin: no symptoms reported, see HPI Psychiatric/Neurological: No Symptoms Reported, See HPI All Other Systems Reviewed Negative Unless Noted: Yes Past Ddlcikm-Stsvxk-Satlfn Hx Immunizations Up To Date Tetanus Booster (TDap): Less than 5yrs First/Initial COVID19 Vaccinat: 05/27/2020 Second COVID19 Vaccination Sony: 06/24/2020 Third COVID19 Vaccination Date: 02/20/2021 Past Medical History Surgery/Hospitalization HX: REPORTS HEART CATH IN [place] IN APRIL 2021 W/ STENTS Surgeries: Yes (2 KNEES, 2 HIPS, SHOULDER) Gallbladder Respiratory: No Currently Using CPAP: No Currently Using BIPAP: No Cardiac: Yes Coronary Artery Disease, Heart Attack, Hypertension Neurological: No Genitourinary: No Gastrointestinal: Yes (LAZY ESOPHAGUS) Hiatal Hernia Musculoskeletal: Yes (L hip issues) Endocrine: Yes Cancer: No Family Medical History Reviewed Nursing Family Hx Physical Exam Vital Signs Vital Signs - First Documented 01/26/23 14:52 Temp 36.3 Pulse 58 Resp 16 B/P (MAP) 135/78 (97) Pulse Ox 98 Capillary Refill : Less Than 3 Seconds Height, Weight, BMI Height: '" Weight: lbs. oz. kg; 38.75 BMI Method:Estimated General Appearance: No Apparent Distress, WD/WN Eyes: Bilateral Eye Normal Inspection, Bilateral Eye PERRL, Bilateral Eye EOMI HEENT: PERRL/EOMI, TMs Normal, Normal ENT Inspection, Pharynx Normal Neck: Full Range of Motion, Normal Inspection, Non Tender, Supple Respiratory: Chest Non Tender, Lungs Clear, Normal Breath Sounds Cardiovascular: Regular Rate, Rhythm, No Edema, No Murmur, Normal Peripheral Pulses, Bradycardia Gastrointestinal: Normal Bowel Sounds, Non Tender, Soft Extremity: Normal Capillary Refill, Normal Inspection, Normal Range of Motion, No Pedal Edema Neurologic/Psychiatric: Alert, Oriented x3, No Motor/Sensory Deficits, Normal Mood/Affect Skin: Normal Color, Warm/Dry Focused Exam NIH Stroke Scale NIH : Select: Initial Level of Consciousness: 0=Alert LOC Commands: 0=Performs both tasks Gaze: 0=Normal Visual Roland: 0=No visual loss Facial Movement (Facial Paresi: 0=Normal symmetrical mnt Motor Function-Arms Right: 0=No drift Motor Function-Arms Left: 0=No drift Motor Function-Legs Right: 0=No drift Motor Function-Legs Left: 0=No drift Limb Ataxia: 0=Absent Sensory: 0=Normal:no loss Best Language: 0=No aphasia Dysarthria: 0=Normal Extinction & Inattention: 0=No abnormality NIH Stroke Scale Score: 0 Progress/Results/Core Measures Suspected Sepsis SIRS Temperature: Pulse: 58 Respiratory Rate: 16 Laboratory Tests 01/26/23 15:42: White Blood Count 5.8 Blood Pressure 135 /78 Mean: 97 Laboratory Tests 01/26/23 15:42: Creatinine 0.92, INR Comment 1.1, Platelet Count 150, Total Bilirubin 0.5 Results/Orders Lab Results Laboratory Tests Test 01/26/23 14:59 01/26/23 15:42 01/26/23 15:51 Range/Units Glucometer 108 70-110 MG/DL White Blood Count 5.8 4.3-11.0 10^3/uL Red Blood Count 3.85 L 4.30-5.52 10^6/uL Hemoglobin 12.4 L 13.3-17.7 g/dL Hematocrit 38 L 40-54 % Mean Corpuscular Volume 98 80-99 fL Mean Corpuscular Hemoglobin 32 25-34 pg Mean Corpuscular Hemoglobin Concent 33 32-36 g/dL Red Cell Distribution Width 13.9 10.0-14.5 % Platelet Count 150 130-400 10^3/uL Mean Platelet Volume 10.6 9.0-12.2 fL Immature Granulocyte % (Auto) 0 % Neutrophils (%) (Auto) 63 42-75 % Lymphocytes (%) (Auto) 21 12-44 % Monocytes (%) (Auto) 11 0-12 % Eosinophils (%) (Auto) 5 0-10 % Basophils (%) (Auto) 0 0-10 % Neutrophils # (Auto) 3.6 1.8-7.8 10^3/uL Lymphocytes # (Auto) 1.2 1.0-4.0 10^3/uL Monocytes # (Auto) 0.6 0.0-1.0 10^3/uL Eosinophils # (Auto) 0.3 0.0-0.3 10^3/uL Basophils # (Auto) 0.0 0.0-0.1 10^3/uL Immature Granulocyte # (Auto) 0.0 0.0-0.1 10^3/uL Prothrombin Time 14.3 12.2-14.7 SEC INR Comment 1.1 0.8-1.4 Activated Partial Thromboplast Time 32 24-35 SEC Sodium Level 142 135-145 MMOL/L Potassium Level 4.4 3.6-5.0 MMOL/L Chloride Level 105 98-107 MMOL/L Carbon Dioxide Level 28 21-32 MMOL/L Anion Gap 9 5-14 MMOL/L Blood Urea Nitrogen 15 7-18 MG/DL Creatinine 0.92 0.60-1.30 MG/DL Estimat Glomerular Filtration Rate 83 BUN/Creatinine Ratio 16 Glucose Level 102 70-105 MG/DL Calcium Level 8.9 8.5-10.1 MG/DL Corrected Calcium 9.2 8.5-10.1 MG/DL Total Bilirubin 0.5 0.1-1.0 MG/DL Aspartate Amino Transf (AST/SGOT) 17 5-34 U/L Alanine Aminotransferase (ALT/SGPT) 14 0-55 U/L Alkaline Phosphatase 65 40-136 U/L Troponin I < 0.028 <0.028 NG/ML Total Protein 6.8 6.4-8.2 GM/DL Albumin 3.6 3.2-4.5 GM/DL Urine Color YELLOW Urine Clarity CLEAR Urine pH 6.0 5-9 Urine Specific [place] 1.025 H 1.016-1.022 Urine Protein NEGATIVE NEGATIVE Urine Glucose (UA) NEGATIVE NEGATIVE Urine Ketones NEGATIVE NEGATIVE Urine Nitrite NEGATIVE NEGATIVE Urine Bilirubin NEGATIVE NEGATIVE Urine Urobilinogen 1.0 < = 1.0 MG/DL Urine Leukocyte Esterase NEGATIVE NEGATIVE Urine RBC (Auto) NEGATIVE NEGATIVE Urine RBC NONE /HPF Urine WBC NONE /HPF Urine Squamous Epithelial Cells RARE /HPF Urine Crystals NONE /LPF Urine Bacteria TRACE /HPF Urine Casts NONE /LPF Urine Mucus SMALL H /LPF Urine Culture Indicated NO My Orders Orders - MENA DEWITT Cbc And Automated Diff (01/26/23 15:02) Protime With Inr (01/26/23 15:02) Partial Thromboplastin Time (01/26/23 15:02) Comprehensive Metabolic Panel (01/26/23 15:02) Troponin I Mcdonald (01/26/23 15:02) Ua Culture If Indicated (01/26/23 15:02) Chest 1 View, Ap/Pa Only (01/26/23 15:02) Ekg Tracing (01/26/23 15:02) Nothing By Mouth (01/26/23 Dinner) Accucheck Stat ONCE (01/26/23 15:02) Ed Iv/Invasive Line Start (01/26/23 15:02) Vital Signs Stroke Patient Q15M (01/26/23 15:02) Ct Head Wo-R/O Stroke (01/26/23 15:02) O2 (01/26/23 15:02) Monitor-Rhythm Ecg Trace Only (01/26/23 15:02) Dysphagia Screening Tool [id number] (01/26/23 15:02) Vital Signs/I&O 01/26/23 14:52 Temp 36.3 Pulse 58 Resp 16 B/P (MAP) 135/78 (97) Pulse Ox 98 Capillary Refill : Less Than 3 Seconds Blood Pressure Mean: 97 Point of Care Testing Finger Stick Blood Glucose: 108 Blood Glucose Action Taken: REPORTED TO A [facility] [place] Progress Note : Time: 14:52 Progress Note Patient assessed, NIH is 0. Will obtain CT head, labs, chest x-ray and EKG. 1555 CT Head Negative, patient continues to have no neurological changes. Awaiting UA. [address] White, no acute changes on EKG. Will plan d/c after UA complete. 1620 UA shows no signs of urinary tract infection. Patient reports feeling that it is easier to speak. He reports drinking a Dr. Pepper before bed last night and he doesn't usually drink this at night. Discharge instructions and return precautions reviewed. ECG Initial ECG Impression Date: Jan 26, 2023 Initial ECG Impression Time: 15:07 Initial ECG Rate: 67 Initial ECG Intervals MN 192, QRS D158, QT 427, QTc 442. [place] P99, R 25, T18. Sinus rhythm with occasional ventricular premature complexes and frequent supraventricular premature complexes. Right bundle branch block Initial ECG Comparisson: No Previous ECG Available Diagnostic Imaging Diagonstic Imaging: CT Plain Films/CT/US/NM/MRI: head Comments [place], [place] NAME: WONG COLBERT MED REC#: [id number] PT STATUS: REG ER : 1940 PHYSICIAN: MENA DEWITT ADMIT DATE: 01/26/23/ER Draft Date of Exam:01/26/23 CT HEAD WO-R/O STROKE INDICATION: Altered mental status, speech difficulty. TECHNIQUE: Multiple contiguous axial images were obtained through the brain without the use of intravenous contrast. Auto Exposure Controls were utilized during the CT exam to meet ALARA standards for radiation dose reduction. COMPARISON: Comparison made to 08/19/2019. FINDINGS: There are mild diffuse atrophic changes. There are mild low-density changes in the deep white matter, compatible with chronic ischemic change. There is no acute hemorrhage or subdural or epidural collection. Calvarial windows are normal. IMPRESSION: Chronic changes as above with no acute intracranial abnormality. Dictated on workstation # [id number] Dict: 01/26/23 1535 Trans: 01/26/23 1543 [facility] [id number] Interpreted by: SHAUN SALAZAR MD Electronically signed by: Reviewed: Reviewed by Me Diagonstic Imaging: Xray Plain Films/CT/US/NM/MRI: chest Comments NAME: WONG COLBERT MED REC#: [id number] PT STATUS: REG ER : 1940 PHYSICIAN: MENA DEWITT ADMIT DATE: 01/26/23/ER Draft Date of Exam:01/26/23 CHEST 1 VIEW, AP/PA ONLY INDICATION: Incontinence. Frontal chest obtained at 3:08 p.m. FINDINGS: Heart and mediastinal silhouette are normal in appearance. The lungs show no focal infiltrate. There is no pneumothorax or pleural fluid. IMPRESSION: No acute process in the chest. Dictated on workstation # [id number] Dict: 01/26/23 1541 Trans: 01/26/23 1544 [id number] Interpreted by: SHAUN SALAZAR MD Electronically signed by: Reviewed: Reviewed by Me Transfer of Care Transfer of Care Time: 16:10 Care transferred to: CLAY Malik Departure Impression Primary Impression: Incontinence Qualified Codes: R32 - Unspecified urinary incontinence Disposition: 01 HOME, SELF-CARE Condition: Improved Departure-Patient Inst. Decision time for Depature: 16:20 Referrals: RANDOLPH DELAROSA MD (PCP) Primary Care Physician [facility] (Family) Primary Care Physician WHITLEY WHITE MD Patient Instructions: Urinary Incontinence (DC) Add. Discharge Instructions: Monitor symptoms and follow-up with Dr. Austin if they recur. Continue all home medications. Return to the emergency department for facial drooping, confusion, weakness, or new, urgent healthcare needs All discharge instructions reviewed with patient and/or family. Voiced understanding. Copy Copies To 1: AINSLEY AUSTIN MD, AMY ARNP Jan 26, 2023 15:34
--- NOTE | 2023-01-26 15:44 | Diagnostic Imaging Report ---
INDICATION: Altered mental status, speech difficulty. TECHNIQUE: Multiple contiguous axial images were obtained through the brain without the use of intravenous contrast. Auto Exposure Controls were utilized during the CT exam to meet ALARA standards for radiation dose reduction. COMPARISON: Comparison made to 08/19/2019. FINDINGS: There are mild diffuse atrophic changes. There are mild low-density changes in the deep white matter, compatible with chronic ischemic change. There is no acute hemorrhage or subdural or epidural collection. Calvarial windows are normal. IMPRESSION: Chronic changes as above with no acute intracranial abnormality. Dictated by: Dictated on workstation # [id number]
--- NOTE | 2023-01-26 15:44 | Diagnostic Imaging Report ---
INDICATION: Incontinence. Frontal chest obtained at 3:08 p.m. FINDINGS: Heart and mediastinal silhouette are normal in appearance. The lungs show no focal infiltrate. There is no pneumothorax or pleural fluid. IMPRESSION: No acute process in the chest. Dictated by: Dictated on workstation # [id number]
[2023-01-26 15:50] LABS: BASOPHILS % (AUTO) 0 % (0-10); EOSINOPHILS # (AUTO) 0.3 10^3/uL (0.0-0.3); EOSINOPHILS % (AUTO) 5 % (0-10); HEMATOCRIT 38 % (40-54); HEMOGLOBIN 12.4 g/dL (13.3-17.7); LYMPHOCYTES # (AUTO) 1.2 10^3/uL (1.0-4.0); LYMPHOCYTES % (AUTO) 21 % (12-44); MEAN CORPUSCULAR HEMOGLOBIN 32 pg (25-34); MEAN CORPUSCULAR HGB CONC 33 g/dL (32-36); MEAN CORPUSCULAR VOLUME 98 fL (80-99); MEAN PLATELET VOLUME 10.6 fL (9.0-12.2); MONOCYTES # (AUTO) 0.6 10^3/uL (0.0-1.0); MONOCYTES % (AUTO) 11 % (0-12); NEUTROPHILS # (AUTO) 3.6 10^3/uL (1.8-7.8); NEUTROPHILS % (AUTO) 63 % (42-75); PLATELET COUNT 150 10^3/uL (130-400); WHITE BLOOD COUNT 5.8 10^3/uL (4.3-11.0)
[2023-01-26 16:01] LABS: ALBUMIN 3.6 GM/DL (3.2-4.5); CHLORIDE 105 MMOL/L (98-107); POTASSIUM 4.4 MMOL/L (3.6-5.0); SODIUM 142 MMOL/L (135-145)
[2023-01-26 16:02] LABS: CALCIUM 8.9 MG/DL (8.5-10.1)
[2023-01-26 16:03] LABS: GLUCOSE 102 MG/DL (70-105); TOTAL PROTEIN 6.8 GM/DL (6.4-8.2)
[2023-01-26 16:04] LABS: CARBON DIOXIDE 28 MMOL/L (21-32); INR 1.1 (0.8-1.4); PROTHROMBIN TIME PATIENT 14.3 SEC (12.2-14.7)
[2023-01-26 16:05] LABS: BILIRUBIN,TOTAL 0.5 MG/DL (0.1-1.0)
[2023-01-26 16:07] LABS: ALKALINE PHOSPHATASE 65 U/L (40-136); CREATININE SERUM 0.92 MG/DL (0.60-1.30); GFR ESTIMATED 83
[2023-01-26 16:08] LABS: BUN/CREATININE RATIO 16
[2023-01-26 16:10] LABS: ALANINE AMINOTRANSFERASE 14 U/L (0-55)
[2023-01-26 16:18] LABS: BACTERIA,URINE TRACE /HPF; BILIRUBIN,URINE NEGATIVE (NEGATIVE); CLARITY,URINE CLEAR; COLOR,URINE YELLOW; GLUCOSE, URINE (UA) NEGATIVE (NEGATIVE); KETONES,URINE NEGATIVE (NEGATIVE); LEUKOCYTE ESTERASE ,URINE NEGATIVE (NEGATIVE); NITRITE,URINE NEGATIVE (NEGATIVE); PROTEIN,URINE NEGATIVE (NEGATIVE); SQUAMOUS EPITHELIAL CELL,UR RARE /HPF
[2023-01-26 16:47] VITALS: BP 124/64
== END 2023-01-26 16:47 | disposition home or self-care (01) ==
LOC: EDUNIT# 14:40 → ER 14:42
DX: R32 Unspecified urinary incontinence (principal); I25.2 Old myocardial infarction; I10 Essential (primary) hypertension; Z79.82 Long term (current) use of aspirin; Z95.5 Presence of coronary angioplasty implant and graft
CPT/HCPCS: 36415; 70450; 71045; 80053; 81000; 82947; 84484; 85025; 85610; 85730; 93005; 93041

== ENCOUNTER → 2023-02-02 | Outpatient (CLI) | payer MEDICARE, OTHER ==
--- NOTE | 2023-02-02 15:35 | Diagnostic Imaging Report ---
PROCEDURE: US carotid duplex, bilateral. TECHNIQUE: Multiple real-time grayscale images were obtained over the carotid arteries in various projections, bilaterally. Additional spectral analysis and color Doppler duplex images were also obtained. INDICATION: Expressive aphasia. COMPARISON: None FINDINGS: Arrhythmia is noted. Bilateral common carotid arteries normal in course and caliber. There is mild diffuse intimal thickening. Minimal echogenic atherosclerotic disease is also present within the bilateral carotid bulbs extending into the origins of the bilateral internal carotid arteries. Grayscale and color flow images however show no focal significant stenosis by NASCET criteria. Peak systolic velocities and ratios are within normal limits. Vertebral arteries show normal antegrade flow, bilaterally. IMPRESSION: 1. Mild atherosclerotic disease, but no focal significant carotid stenosis. 2. Arrhythmia. Parameters based on the consensus panel Eduardo-Scale and Doppler ultrasound criteria published February 2003, Radiology, Volume 229. DOPPLER (peak systolic velocity M/S Right Left CCA 1.22 1.16 ICA Proximal 1.11 0.98 ICA Mid 0.95 1.18 ICA Distal 0.84 0.86 RATIO 0.91 1.02 ECA 1.48 2.16 VERT 0.41 0.52 Dictated by: Dictated on workstation # [id number]
== END ==
LOC: RAD 11:58
PROVIDERS: ATTEND Internal Medicine
DX: I65.23 Occlusion and stenosis of bilateral carotid arteries (principal); I49.9 Cardiac arrhythmia, unspecified; I71.40 Abdominal aortic aneurysm, without rupture, unspecified; R47.01 Aphasia
CPT/HCPCS: 93880

== ENCOUNTER → 2023-02-10 | Outpatient (CLI) | payer MEDICARE, OTHER | LOC: CARD 07:58 | PROVIDERS: ATTEND Internal Medicine | DX: R00.1 Bradycardia, unspecified (principal) | CPT/HCPCS: 93225; 93226 ==

== ENCOUNTER → 2023-03-09 | Outpatient (CLI) | payer MEDICARE, OTHER ==
[~2023-03-09] MED LIST changes: -OXYB5TAB13 PO; +OXYB5TAB14 PO
== END ==
LOC: CARD 14:26
PROVIDERS: ATTEND Internal Medicine Cardiovascular Disease
DX: I11.9 Hypertensive heart disease without heart failure (principal)
CPT/HCPCS: 93306